=== PATIENT | female | born 1965 | race Caucasian/White ===

== ENCOUNTER → 2016-10-09 | Day surgery (SDC) | payer MEDICARE ==
[~2016-10-09] MED LIST: Buffered Lidocaine 1% SYR 3ML* 3 ML/SYR SYRINGE ONE; Cyclopentolate 1% OPTH.SOL* 2 ML BTL ONE; Flurbiprofen 0.03% OPTH.SOL* 2.5 ML BTL ONE; Ibuprofen TAB* 600 MG PO PRN; Lidocaine 1% MPF* 2 ML VIAL ONE; Lidocaine 2% EPI 1:200000 MPF* 20 ML VIAL ONE; Midazolam* 1 MG/ML 5 ML VIAL (5 MG) ONE; Neomycin/Polymy/Dex OPTH.SUSP* MAXITROL 0.1% 5 ML ONE; Phenylephrine 2.5% OPTH.SOL* 2 ML BTL ONE; Povidone Iodine 5% OPTH* 30 ML BTL ONE; Proparacaine 0.5% OPHTH.SOL* 15 ML BTL ONE; acetaZOLAMIDE TAB* 250 MG ONE; fentaNYL* 50 MCG/ML 2 ML VIAL (100 MCG VIAL) ONE
[2016-10-09 09:45] VITALS: BP 139/84
--- NOTE | 2016-10-09 22:00 | OP ---
DATE OF OPERATION: 10/09/16 [facility] DATE OF : 69 SURGEON: Chiki Pulliam MD PREOPERATIVE DIAGNOSIS: Cataract, left eye. POSTOPERATIVE DIAGNOSIS: Cataract, left eye. OPERATIVE PROCEDURE: Phacoemulsification, left eye with IOL. DESCRIPTION OF PROCEDURE: The patient was brought to the operating room after being given 1/2% Alcaine with epinephrine drops in the preoperative area. The eye was prepped and draped in the usual sterile fashion. Sterile drape and eyelid speculum were placed. Again, topical 1/2% Alcaine with epinephrine was given. A paracentesis incision was made at the 3 o'clock position with the No.75 blade. Clear cornea incision 2.2 x 2.2-mm was created at the 6 o'clock position starting at the anterior limbus using the 2.2-mm keratome. The anterior chamber was irrigated with 0.4 mL of 1% non-preservative intracameral lidocaine and filled with DisCoVisc. A capsulorrhexis was completed using the cystotome and the Utrata forceps. Hydrodissection was performed with balanced salt solution. The lens nucleus was removed with the Phacoemulsification handpiece without incident. Cortex was removed with the irrigation-aspiration handpiece. The capsular bag was re-inflated using DisCoVisc and an SN60WF 27.5 implant was inserted with the shooter. The irrigation-aspiration handpiece was used to remove all residual DisCoVisc. The eye was refilled with balanced salt solution and the wound checked and found to be watertight. Topical Maxitrol drops were given. [id number]/[facility] #: [id number] [facility]ITAL[facility]
== END | disposition home or self-care (01) ==
LOC: OREAST 07:15
PROVIDERS: ATTEND Specialist
DX: H25.042 Posterior subcapsular polar age-related cataract, left eye (principal); I10 Essential (primary) hypertension
CPT/HCPCS: A9270-GY; J2250; J3010; V2632

== ENCOUNTER 2016-10-30 06:41 | Day surgery (SDC) | payer MEDICARE ==
[~2016-10-30 06:41] MED LIST changes: +Buffered Lidocaine 1% SYR 3ML* 3 ML/SYR SYRINGE INTRADERM ONE; -Buffered Lidocaine 1% SYR 3ML* 3 ML/SYR SYRINGE ONE; -Cyclopentolate 1% OPTH.SOL* 2 ML BTL ONE; -Flurbiprofen 0.03% OPTH.SOL* 2.5 ML BTL ONE; -Ibuprofen TAB* 600 MG PO PRN; -Lidocaine 1% MPF* 2 ML VIAL ONE; -Lidocaine 2% EPI 1:200000 MPF* 20 ML VIAL ONE; -Midazolam* 1 MG/ML 5 ML VIAL (5 MG) ONE; -Neomycin/Polymy/Dex OPTH.SUSP* MAXITROL 0.1% 5 ML ONE; -Phenylephrine 2.5% OPTH.SOL* 2 ML BTL ONE; -Povidone Iodine 5% OPTH* 30 ML BTL ONE; -Proparacaine 0.5% OPHTH.SOL* 15 ML BTL ONE; -acetaZOLAMIDE TAB* 250 MG ONE; -fentaNYL* 50 MCG/ML 2 ML VIAL (100 MCG VIAL) ONE
[2016-10-30] MEDS ORDERED: Midazolam* 1 MG/ML 5 ML VIAL (5 MG) ONE (07:28)
[2016-10-30] MEDS ORDERED: fentaNYL* 50 MCG/ML 2 ML VIAL (100 MCG VIAL) ONE (07:28)
[2016-10-30 09:01] VITALS: BP 135/96
--- NOTE | 2016-10-31 01:51 | OP ---
DATE OF OPERATION: 10/30/16 - [facility] DATE OF : 69 SURGEON: Chiki Pulliam M.D. PREOPERATIVE DIAGNOSIS: Cataract, right eye. POSTOPERATIVE DIAGNOSIS: Cataract, right eye. OPERATIVE PROCEDURE: Phacoemulsification, right eye, with IOL. DESCRIPTION OF PROCEDURE: The patient was brought to the operating room after being given 1/2% Alcaine with epinephrine drops in the preoperative area. The eye was prepped and draped in the usual sterile fashion. Sterile drape and eyelid speculum were placed. Again, topical 1/2% Alcaine with epinephrine was given. A paracentesis incision was made at the 9 o'clock position with the No.75 blade. Clear cornea incision 2.2 x 2.2-mm was created at the 12 o'clock position starting at the anterior limbus using the 2.2-mm keratome. The anterior chamber was irrigated with 0.4 mL of 1% non-preservative intracameral lidocaine and filled with DisCoVisc. A capsulorrhexis was completed using the cystotome and the Utrata forceps. Hydrodissection was performed with balanced salt solution. The lens nucleus was removed with the Phacoemulsification handpiece without incident. Cortex was removed with the irrigation-aspiration handpiece. The capsular bag was re-inflated using DisCoVisc and an [id number] 26.5 implant was inserted with the shooter. The irrigation-aspiration handpiece was used to remove all residual DisCoVisc. The eye was refilled with balanced salt solution and the wound checked and found to be watertight. Topical Maxitrol drops were given. [id number]/[facility] #: [id number] MTDD
[2016-10-31] MEDS ORDERED: Cyclopentolate 1% OPTH.SOL* 2 ML BTL ONE (14:31)
[2016-10-31] MEDS ORDERED: acetaZOLAMIDE TAB* 250 MG ONE (14:31)
[2016-10-31] MEDS ORDERED: Proparacaine 0.5% OPHTH.SOL* 15 ML BTL ONE (14:31)
[2016-10-31] MEDS ORDERED: Flurbiprofen 0.03% OPTH.SOL* 2.5 ML BTL ONE (14:31)
[2016-10-31] MEDS ORDERED: Phenylephrine 2.5% OPTH.SOL* 2 ML BTL ONE (14:31)
[2016-10-31] MEDS ORDERED: Lidocaine 1% MPF* 2 ML VIAL ONE (14:31)
[2016-10-31] MEDS ORDERED: Povidone Iodine 5% OPTH* 30 ML BTL ONE (14:31)
[2016-10-31] MEDS ORDERED: Neomycin/Polymy/Dex OPTH.SUSP* MAXITROL 0.1% 5 ML ONE (14:31)
[2016-10-31] MEDS ORDERED: Lidocaine 2% EPI 1:200000 MPF* 20 ML VIAL ONE (14:31)
== END 2016-10-30 08:58 | disposition home or self-care (01) ==
LOC: OREAST 06:41
PROVIDERS: ATTEND Specialist
DX: H25.041 Posterior subcapsular polar age-related cataract, right eye (principal); I10 Essential (primary) hypertension; E87.1 Hypo-osmolality and hyponatremia
CPT/HCPCS: A9270-GY; J2250; J3010; V2632

== ENCOUNTER 2017-01-18 14:03 | Emergency (ER) | payer MEDICARE ==
[2017-01-18 14:41] VITALS: BP 152/99
--- NOTE | 2017-01-18 15:51 | UC ---
Skin Complaint HPI - HPI Summary HPI Summary: PATIENT IS A 51 YO OTHERWISE HEALTHY F WHO PRESENTS TO WITH CC OF SKIN ABRASION WITH WARMTH, REDNESS AND YELLOW CENTER AFTER FALLING SEVERAL DAYS AGO. SHE DENIES FEVER OR GENERALIZED ILLNESS. THE ABRASIONS HAVE BEEN COVERED WITH BANDAGES. SHE STATES YESTERDAY SHE FELT WARMTH AROUND THE WOUNDS ALONG WITH SLIGHT SWELLING OVER THE UPPER PART OF THE LOWER LEG. SHE HAS TRIED IBUPROFEN WITHOUT RELIEF. SHE DENIES OTHER SYMPTOMS AND IS AFEBRILE ON ARRIVAL TO . SHE DENIES DIABETES AND OTHER IMMUNOCOMPROMIZATION. THE FALL WAS MECHANICAL AND SHE DENIES HITTING HER HEAD. - History of Current Complaint Hx Obtained From: Patient Hx Last Menstrual Period: post menopausal ?: No Onset/Duration: Gradual Onset Skin Exposure Onset/Duration: Days Ago Timing: Constant Onset Severity: Mild Current Severity: Mild Pain Intensity: 0 Pain Scale Used: 0-10 Numeric Location: Discrete - LEFT LOWER EXTREMITY INFERIOR AND LATERAL TO THE KNEE Character: Swelling, Raised, Painful Aggravating: Touch Alleviating: Nothing Associated Signs & Symptoms: Positive: Negative Related History: Trauma <Iwona Garner - Last Filed: 01/18/17 15:51> <Mis Elise - Last Filed: 01/18/17 16:24> - History of Current Complaint Chief Complaint: UCSkin Time Seen by Provider: 01/18/17 15:00 Stated Complaint: LEG/KNEE INJ-WARM - Allergy/Home Medications Allergies/Adverse Reactions: Allergies Allergy/AdvReac Type Severity Reaction Status Date / Time Acetaminophen [From Tylenol] Allergy See Comment Verified 10/09/16 07:40 Penicillins Allergy Rash Verified 10/09/16 07:40 Review of Systems Constitutional: Negative Skin: Rash Eyes: Negative ENT: Negative Respiratory: Negative Cardiovascular: Negative Motor: Negative Neurovascular: Negative Psychological: Negative All Other Systems Reviewed And Are Negative: Yes <Iwona Garner - Last Filed: 01/18/17 15:51> PMH/Surg Hx/FS Hx/Imm Hx Previously Healthy: Yes Endocrine History Of: Denies: Diabetes, Thyroid Disease, Hyperthyroidism, Hypothyroidism, Dyslipidemia Cardiovascular History Of: Reports: Hypertension Denies: Cardiac Disorders, Pacemaker/ICD, Myocardial Infarction, Congestive Heart Failure, Atrial Fibrillation, Deep Vein Thrombosis, Bleeding Disorders Respiratory History Of: Denies: COPD, Asthma, Bronchitis, Pneumonia, Pulmonary Embolism GI/ History Of: Reports: Gastroesophageal Reflux Denies: Ulcer, Gastrointestinal Bleed, Gall Bladder Disease, Kidney Stones, Diverticulitis, Renal Disease, Urosepsis Neurological History Of: Reports: Migraine Denies: TIA, CVA, Dementia, Seizures Psychological History Of: Reports: Anxiety Denies: Depression, Bipolar Disorder, Schizophrenia, Post Traumatic Stress Disorder Cancer History Of: Denies: Lung Cancer, Colorectal Cancer, Breast Cancer, Prostate Cancer, Cervical Cancer Other History Of: Negative For: HIV, Hepatitis B, Hepatitis C - Surgical History Surgical History: Yes Surgery Procedure, Year, and Place: liposuction 2013, lung surgery 2001, breast reduction age 20, removal of basal cell carcinoma removed from L chest - Family History Known Family History: Positive: Unknown - Social History Occupation: Unemployed Lives: With Family Alcohol Use: Daily Alcohol Amount: vodka and champane, states she is an alcoholic Substance Use Type: Marijuana Substance Use Comment - Amount & Last Used: not in last 2 weeks Smoking Status (MU): Never Smoked Tobacco - Immunization History Most Recent Influenza Vaccination: Never Most Recent Tetanus Shot: Pt. stated "long overdue". Most Recent Pneumonia Vaccination: Never Vaccination Up to Date: Yes <Iwona Garner - Last Filed: 01/18/17 15:51> Physical Exam Triage Information Reviewed: Yes Appearance: Well-Appearing, No Pain Distress, Well-Nourished Vital Signs: Initial Vital Signs Temp 97.0 F 01/18/17 14:26 Pulse 69 01/18/17 14:26 Resp 16 01/18/17 14:26 BP 160/98 01/18/17 14:26 Pulse Ox 99 01/18/17 14:26 Vital Signs Reviewed: Yes Eyes: Positive: Conjunctiva Clear, Other: - OBVIOUS SIGNS OF CATARACTS Neck exam: Normal Neck: Positive: Supple, Nontender Cardiovascular Exam: Normal Cardiovascular: Positive: RRR Musculoskeletal Exam: Normal Musculoskeletal: Positive: Strength Intact Neurological Exam: Normal Neurological: Positive: Alert Psychological Exam: Normal Psychological: Positive: Normal Response To Family Skin: Positive: Other - LEFT LOWER EXTREMITY INFERIOR AND LATERAL TO THE KNEE <Iwona Garner - Last Filed: 01/18/17 15:51> Vital Signs: Initial Vital Signs Temp 97.0 F 01/18/17 14:26 Pulse 69 01/18/17 14:26 Resp 16 01/18/17 14:26 BP 160/98 01/18/17 14:26 Pulse Ox 99 01/18/17 14:26 <Mis Elise - Last Filed: 01/18/17 16:24> Course/Dx - Course Course Of Treatment: LEFT LOWER EXTREMITY INFERIOR AND LATERAL TO THE KNEE. PATIENT STATES SHE INCURED A MECHANICAL FALL SEVERAL DAYS AGO AND IS NOW EXPERIENCING WARMTH, REDNESS AND SLIGHT SWELLING AROUND THE AREA. TELFA DRESSING APPLIED WITH ANTIBIOTIC OINTMENT. EDUCATED PATIENT ABOUT DRESSING CHANGES AND ABX USE. KEFLEX PRESCRIBED FOR LOCALIZED POSSIBLE CELLULITIS AROUND ABRASION. - Differential Diagnoses - Skin Complaint Differential Diagnoses: Cellulitis, Drug Rash, Local Allergic Reaction, Other - ABRASION, IMPETIGO - Diagnoses Provider Diagnoses: ABRASION, CELLULITIS <Iwona Garner - Last Filed: 01/18/17 15:51> Discharge <Iwona Garner - Last Filed: 01/18/17 15:51> <Mis Elise - Last Filed: 01/18/17 16:24> - Discharge Plan Condition: Stable Disposition: HOME Prescriptions: Cephalexin CAP* [Keflex CAP*] 500 mg PO QID #28 cap MDD 4 Patient Education Materials: Cellulitis (ED), Abrasion (ED) Referrals: Sergio Russell [facility] [Primary Care Provider] - Additional Instructions: Keep wound moist and covered for 2 more days. If the wound begins to heal and scab over, you may only apply ointment, then leave open to air If you notice worsening swelling, warmth, redness or drainage from the area, come back to ED immediately. Use a non-stick dressing to apply over the wound. Attestation Statement User Type: Provider - was available for consult. This patient was seen by the LION. The patient was not presented to, seen by, or examined by me. <Mis Elise - Last Filed: 01/18/17 16:24>
== END 2017-01-18 15:46 | disposition home or self-care (01) ==
LOC: UCEAST 14:03
DX: S80.812A Abrasion, left lower leg, initial encounter (principal); L03.116 Cellulitis of left lower limb; B96.89 Other specified bacterial agents as the cause of diseases classified elsewhere; W19.XXXA Unspecified fall, initial encounter
CPT/HCPCS: 99212; G0463

== ENCOUNTER 2017-09-10 12:12 | Inpatient (IN) | payer MEDICARE ==
[2017-09-10] MEDS ORDERED: NS 0.9% 1000 ML* 1,000 ML IV ONE ×2 (12:34→12:54)
--- NOTE | 2017-09-10 12:43 | ED ---
Substance Abuse/Use - History Of Current Complaint Chief Complaint: EDSyncope Stated Complaint: SYNCOPE Time Seen by Provider: 09/10/17 12:16 Hx Last Menstrual Period: post menopausal - Allergies/Home Medications Allergies/Adverse Reactions: Allergies Allergy/AdvReac Type Severity Reaction Status Date / Time Acetaminophen [From Tylenol] Allergy See Comment Verified 10/09/16 07:40 Penicillins Allergy Rash Verified 10/09/16 07:40 Home Medications: Home Medications Desvenlafaxine(NF) [Pristiq(NF)] 100 mg PO DAILY 09/10/17 [History Confirmed 06/18] Ranitidine TAB (NF) [Zantac TAB (NF)] 150 mg PO BID PRN 09/10/17 [History Confirmed 09/10/17] Thiamine TAB* [Vitamin B-1 TAB*] 100 mg PO DAILY 09/10/17 [History Confirmed 06/18] PMH/Surg Hx/FS Hx/Imm Hx Endocrine/Hematology History: Reports: Hx Anemia Denies: Hx Diabetes, Hx Thyroid Disease Cardiovascular History: Reports: Hx Hypertension, Other Cardiovascular Problems/ Disorders - Mitral valve prolapse Denies: Hx Aneurysm, Hx Congestive Heart Failure, Hx Deep Vein Thrombosis, Hx Myocardial Infarction, Hx Pacemaker/ICD, Hx Syncope Respiratory History: Reports: Hx Pleural Effusion Denies: Hx Asthma, Hx Chronic Obstructive Pulmonary Disease (COPD), Hx Lung Cancer, Hx Pneumonia, Hx Pulmonary Embolism GI History: Reports: Hx Gastroesophageal Reflux Disease Denies: Hx Gall Bladder Disease, Hx Gastrointestinal Bleed, Hx Ulcer, Hx Urosepsis History: Denies: Hx Acute Renal Failure, Hx Kidney Stones, Hx Renal Disease Musculoskeletal History: Reports: Hx Scoliosis Denies: Hx Gout Sensory History: Reports: Hx Contacts or Glasses Denies: Hx Cataracts, Hx Eye Injury, Hx Eye Prosthesis, Hx Glaucoma, Hx Legally Blind, Hx Macular Degeneration, Hx Vision Problem, Hx Deafness, Hx Hearing Aid, Hx Hearing Problem, Other Sensory Impairments Opthamlomology History: Reports: Hx Contacts or Glasses Denies: Hx Cataracts, Hx Eye Injury, Hx Eye Prosthesis, Hx Glaucoma, Hx Legally Blind, Hx Macular Degeneration, Hx Vision Problem, Other Sensory Impairments Neurological History: Reports: Hx Migraine Denies: Hx CVA, Hx Dementia, Hx Seizures, Hx Transient Ischemic Attacks (TIA) Psychiatric History: Reports: Hx Anxiety, Hx Eating Disorder - Anorexia and Bulimia, Hx Substance Abuse - alcoholic Denies: Hx Depression, Hx Schizophrenia, Hx Bipolar Disorder - Cancer History Cancer Type, Location and Year: Basel cell carcinoma removed from L chest - Surgical History Surgery Procedure, Year, and Place: liposuction 2013, lung surgery 2001, breast reduction age 20, removal of basal cell carcinoma removed from L chest - Immunization History Immunizations Up to Date: Yes Infectious Disease History: No Infectious Disease History: Reports: 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36; treatedfor 6 months; 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 Denies: Hx Clostridium Difficile, Hx Hepatitis, Hx Human Immunodeficiency Virus (HIV), Hx of Known/Suspected MRSA, Hx Shingles, Hx Known/Suspected VRE, Hx Known/Suspected VRSA, History Other Infectious Disease, Traveled Outside the [place] in Last 30 Days - Family History Known Family History: Positive: Unknown - Social History Alcohol Use: Daily Alcohol Amount: vodka and champane, states she is an alcoholic Substance Use Type: Reports: Marijuana Substance Use Comment - Amount & Last Used: today Smoking Status (MU): Never Smoked Tobacco Physical Exam Vital Signs On Initial Exam: Initial Vitals Temp Pulse Resp BP Pulse Ox 97.8 F 62 16 102/77 100 09/10/17 12:14 09/10/17 12:14 09/10/17 12:14 09/10/17 12:14 09/10/17 12:14 - [place] Coma Scale Coma Scale Total: 15 Diagnostics - Vital Signs Vital Signs Temp Pulse Resp BP Pulse Ox 09/10/17 12:14 97.8 F 62 16 102/77 100 - Laboratory Lab Statement: Any lab studies that have been ordered have been reviewed, and results considered in the medical decision making process. Discharge - Discharge Plan Referrals: Germaine Sheppard MD [Medical Doctor] -
--- OUTSIDE RECORDS SUMMARY | 2017-09-10 12:49 | XMS REPORT ---
:1965 External Reference #:[id number] Author Organization [place] [facility] Address [address] [address] Phone [phone] Care Team Providers Name Role Phone Germaine Sheppard MD Primary Care Physician Unavailable Payers Type Date Identification Numbers Payment Provider Subscriber Health Maintenance Policy Number: Medicare Blue o Dinh Samson [facility] (O) [id number] PayID: [id number] [address] [address] [place] [address] Medigap Part B Expires: 06/09/2016 PayID: [id number] Harris [address] [place] [address] Problems Date Description Provider Status Onset: 05/12/2016 Essential hypertension Sergio Russell NP Active Onset: 05/12/2016 Insomnia Sergio Russell NP Active Onset: 05/12/2016 H/O: tuberculosis Sergio Russell NP Active Onset: 05/12/2016 Alcohol abuse Sergio Russell NP Active Family History Date Family Member(s) Problem(s) Comments General No Current Problems Social History Type Date Description Comments Marital Status Marital Status Significant Other currently ETOH Use Currently consumes alcohol States she drinks excessively, all day. Cannot quantify amount Smoking Patient has never smoked Recreational Drug Use Current Drug User Marijuana Daily Caffeine Does Not Consume Caffeine Exercise Type/Frequency Exercises rarely Allergies, Adverse Reactions, Alerts Date Description Reaction Status Severity Comments 05/08/2016 Penicillin active rash Medications Medication Date Status Form Strength Qnty SIG Indications Ordering Provider Ativan 08/15 Active Tablets 1mg 30tab 1/2-1 tab by Sergio /Meghann s mouth twice JUNIE Russell daily as needed Bystolic 05/02 Active Tablets 10mg 30tab 1 tablet by I10 Sergio s mouth daily JUNIE Russell Thiamine HCL 07/17 Active Tablets 100mg 90tab 1 by mouth F10.20 Sergio s every day JUNIE Russell Folic Acid 07/17 Active Tablets 1mg 60tab take 1 tablet F10.20 s by mouth in JUNIE Russell the morning Blood Pressure 06/26 Active Misc 1unit check bp I10 Sergio Monitor s twice weekly JUNIE Russell Inflate Small at home Cuff Omeprazole 06/26 Active Capsules 20mg 60cap 1 by mouth K21.[address] laboy once daily JUNIE Russell Ranitidine HCL 06/26 Active Tablets 150mg 120ta one tablet K21.9 bs twice daily JUNIE Russell as needed (Vacation override) B Complex Active Capsules 1 by mouth Unknown /0000 every day Multi For Her Active Capsules once a day Unknown /0000 otc Desvenlafaxine Active Tablets 100mg 1 by mouth Unknown Succinate ER /0000 ER 24HR every morning Clindamycin HCL Active Capsules 150mg Unknown /0000 Bystolic 04/22 Hx Tablets 5mg 90tab 1 by mouth I10 Sergio s every day JUNIE Russell - 05/02 Ciprofloxacin 10/03 Hx Tablets 250mg 14tab take one Sergio HCL s tablet twice JUNIE Russell - a day for 7 10/03 days. Nitrofurantoin 10/03 Hx Capsules 100mg 14cap take one Sergio Macrocrystal s capsule twice JUNIE Russell - daily for 7 10/10 days. Bystolic 07/22 Hx Tablets 5mg 60tab take 1 tablet s by mouth once JUNIE Russell - daily 02/12 Bystolic 06/26 Hx Tablets 2.5mg 90tab 1 tablet by I10 Sergio s mouth daily JUNIE Russell - 05/02 Slow-Mag 05/20 Hx Tablets 71.5-119m 240ta two tablets DR rohan benson twice daily JUNIE Russell - (vacation 02/12 override) Vitamin B-1 Hx Tablets 250mg 2 po qd Unknown /0000 - 09/27 Doxepin HCL 00 Hx Capsules 25mg 1 tab by Unknown /0000 mouth at - bedtime ( 02/12 ) Vital Signs Date Vital Result Comment 08/15/2017 Weight 102.00 lb Pt reports. Heart Rate 81 /min BP Systolic Sitting 136 mmHg BP Diastolic Sitting 92 mmHg Body Temperature 99.1 F Pain Level 97 07/04/2017 Heart Rate 77 /min BP Systolic Sitting 138 mmHg BP Diastolic Sitting 86 mmHg O2 % BldC Oximetry 98 % 05/02/2017 Heart Rate 84 /min BP Systolic Sitting 150 mmHg BP Diastolic Sitting 98 mmHg BP Systolic Recheck 144 mmHg BP Diastolic Recheck 96 mmHg O2 % BldC Oximetry 98 % 02/12/2017 Weight 103.00 lb Heart Rate 69 /min BP Systolic Sitting 132 mmHg BP Diastolic Sitting 90 mmHg BP Systolic Recheck 132 mmHg BP Diastolic Recheck 84 mmHg O2 % BldC Oximetry 99 % 12/02/2016 Weight 107.00 lb shoes Heart Rate 74 /min BP Systolic 138 mmHg BP Diastolic 72 mmHg BP Systolic Recheck 132 mmHg BP Diastolic Recheck 84 mmHg Body Temperature 98.2 F O2 % BldC Oximetry 98 % 10/01/2016 Weight 103.00 lb Heart Rate 69 /min BP Systolic 120 mmHg BP Diastolic 80 mmHg Body Temperature 98.5 F O2 % BldC Oximetry 96 % 09/27/2016 Weight 103.00 lb Heart Rate 85 /min BP Systolic Sitting 128 mmHg BP Diastolic Sitting 84 mmHg Body Temperature 98.9 F O2 % BldC Oximetry 99 % 07/17/2016 Heart Rate 69 /min BP Systolic Sitting 100 mmHg BP Diastolic Sitting 76 mmHg BP Systolic Recheck 104 mmHg BP Diastolic Recheck 74 mmHg O2 % BldC Oximetry 98 % 06/26/2016 Heart Rate 66 /min BP Systolic Sitting 120 mmHg BP Diastolic Sitting 64 mmHg Respiratory Rate 16 /min Body Temperature 98.5 F O2 % BldC Oximetry 98 % 05/08/2016 Weight 102.00 lb Heart Rate 80 /min BP Systolic Sitting 110 mmHg BP Diastolic Sitting 68 mmHg Respiratory Rate 15 /min Body Temperature 98.0 F O2 % BldC Oximetry 98 % Results Test Date Test Result H/L Range Note Laboratory test finding 05/29/2017 Magnesium 1.8 mg/dL Low 1.9-2.7 Comp Metabolic Panel 05/29/2017 Sodium 131 mmol/L Low 133-145 Potassium 3.9 mmol/L 3.5-5.0 Chloride 95 mmol/L Low 101-111 Co2 Carbon Dioxide 29 mmol/L 22-32 Anion Gap 7 mmol/L 2-11 Glucose 86 mg/dL 70-100 Blood Urea Nitrogen 8 mg/dL 6-24 Creatinine 0.63 mg/dL 0.51-0.95 BUN/Creatinine Ratio 12.7 8-20 Calcium 8.7 mg/dL 8.6-10.3 Total Protein 7.0 g/dL 6.4-8.9 Albumin 4.2 g/dL 3.2-5.2 Globulin 2.8 g/dL 2-4 Albumin/Globulin Ratio 1.5 1-3 Total Bilirubin 0.80 mg/dL 0.2-1.0 Alkaline Phosphatase 78 U/L 34-104 Alt 30 U/L 7-52 Ast 76 U/L High 13-39 Egfr Non- 100.0 >60 Egfr 128.6 >60 1 CBC Auto Diff 02/07/2017 White Blood Count 4.0 10^3/uL 3.5-10.8 Red Blood Count 3.68 10^6/uL Low 4.0-5.4 Hemoglobin 12.8 g/dL 12.0-16.0 Hematocrit 37 % 35-47 Mean Corpuscular Volume 100 fL High 80-97 Mean Corpuscular Hemoglobin 35 pg High 27-31 Mean Corpuscular HGB Conc 35 g/dL 31-36 Red Cell Distribution Width 13 % 10.5-15 Platelet Count 196 10^3/uL 150-450 Mean Platelet Volume 7 um3 Low 7.4-10.4 Abs Neutrophils 2.2 10^3/uL 1.5-7.7 Abs Lymphocytes 1.3 10^3/uL 1.0-4.8 Abs Monocytes 0.5 10^3/uL 0-0.8 Abs Eosinophils 0.1 10^3/uL 0-0.6 Abs Basophils 0.1 10^3/uL 0-0.2 Abs Nucleated RBC 0 10^3/uL Granulocyte % 53.7 % 38-83 Lymphocyte % 31.4 % 25-47 Monocyte % 11.4 % High 1-9 Eosinophil % 2.3 % 0-6 Basophil % 1.2 % 0-2 Nucleated Red Blood Cells % 0 Laboratory test finding 02/07/2017 Ferritin 249.5 ng/mL 11-307 Magnesium 1.8 mg/dL Low 1.9-2.7 Comp Metabolic Panel 02/07/2017 Sodium 127 mmol/L Low 133-145 Potassium 4.3 mmol/L 3.5-5.0 Chloride 91 mmol/L Low 101-111 Co2 Carbon Dioxide 29 mmol/L 22-32 Anion Gap 7 mmol/L 2-11 Glucose 66 mg/dL Low 70-100 Blood Urea Nitrogen 6 mg/dL 6-24 Creatinine 0.57 mg/dL 0.51-0.95 BUN/Creatinine Ratio 10.5 8-20 Calcium 9.4 mg/dL 8.6-10.3 Total Protein 7.2 g/dL 6.4-8.9 Albumin 4.3 g/dL 3.2-5.2 Globulin 2.9 g/dL 2-4 Albumin/Globulin Ratio 1.5 1-3 Total Bilirubin 0.70 mg/dL 0.2-1.0 Alkaline Phosphatase 60 U/L 34-104 Alt 27 U/L 7-52 Ast 62 U/L High 13-39 Egfr Non- 112.7 >60 Egfr 145.0 >60 2 Laboratory test finding 12/17/2016 Occult Blood - Stool Neg x 3 CBC Auto Diff 10/01/2016 White Blood Count 12.2 10^3/uL High 3.5-10.8 Red Blood Count 3.35 10^6/uL Low 4.0-5.4 Hemoglobin 11.4 g/dL Low 12.0-16.0 Hematocrit 32 % Low 35-47 Mean Corpuscular Volume 97 fL 80-97 Mean Corpuscular Hemoglobin 34 pg High 27-31 Mean Corpuscular HGB Conc 35 g/dL 31-36 Red Cell Distribution Width 13 % 10.5-15 Platelet Count 447 10^3/uL 150-450 Mean Platelet Volume 7 um3 Low 7.4-10.4 Abs Neutrophils 8.2 10^3/uL High 1.5-7.7 Abs Lymphocytes 2.3 10^3/uL 1.0-4.8 Abs Monocytes 1.5 10^3/uL High 0-0.8 Abs Eosinophils 0.1 10^3/uL 0-0.6 Abs Basophils 0.1 10^3/uL 0-0.2 Abs Nucleated RBC 0 10^3/uL Granulocyte % 67.0 % 38-83 Lymphocyte % 18.7 % Low 25-47 Monocyte % 12.3 % High 1-9 Eosinophil % 0.9 % 0-6 Basophil % 1.1 % 0-2 Nucleated Red Blood Cells % 0 Comp Metabolic Panel 10/01/2016 Sodium 126 mmol/L Low 133-145 Potassium 4.3 mmol/L 3.5-5.0 Chloride 93 mmol/L Low 101-111 Co2 Carbon Dioxide 25 mmol/L 22-32 Anion Gap 8 mmol/L 2-11 Glucose 88 mg/dL 70-100 Blood Urea Nitrogen 11 mg/dL 6-24 Creatinine 0.72 mg/dL 0.51-0.95 BUN/Creatinine Ratio 15.3 8-20 Calcium 8.9 mg/dL 8.6-10.3 Total Protein 6.8 g/dL 6.4-8.9 Albumin 3.5 g/dL 3.2-5.2 Globulin 3.3 g/dL 2-4 Albumin/Globulin Ratio 1.1 1-3 Total Bilirubin 0.40 mg/dL 0.2-1.0 Alkaline Phosphatase 64 U/L 34-104 Alt 8 U/L 7-52 Ast 13 U/L 13-39 Egfr Non- 86.1 >60 Egfr 110.7 >60 3 Iron & Iron Binding Capacity 10/01/2016 Iron 17 g/dL Low 50-212 Unsaturated Iron Binding 243 g/dL Total Iron Binding Capacity 260 g/dL 250-450 % Iron Saturation 7 % Low 15-55 Laboratory test finding 10/01/2016 Folic Acid (Folate) > 20.00 ng/mL & gt;3.99 Vitamin B12 > 1450 pg/mL High 180-914 4 Ferritin 407.6 ng/mL High 11-307 Urine Culture And 10/01/2016 Urine Culture SEE RESULT BELOW 5 Sensitivities Ua Routine 10/01/2016 Ua Specific Rogers 1.015 Ua PH 5 Ua Color yellow Ua Appera cloudy Ua WBC small Ua Protein 30+ Ua Glucose -- Ua Ketones -- Ua Bilirubin small Ua Urobilinogen normal Ua Nitrite -- Ua Occult Blood large Laboratory test finding 08/09/2016 TSH (Thyroid Stim Horm) 0.68 mcIU/mL 0.34-5.60 Mercury Blood 8 ng/mL 0-9 6 Basic Metabolic Panel 08/09/2016 Sodium 132 mmol/L Low 133-145 Potassium 4.1 mmol/L 3.5-5.0 Chloride 95 mmol/L Low 101-111 Co2 Carbon Dioxide 28 mmol/L 22-32 Anion Gap 9 mmol/L 2-11 Glucose 95 mg/dL 70-100 Blood Urea Nitrogen 5 mg/dL Low 6-24 Creatinine 0.61 mg/dL 0.51-0.95 BUN/Creatinine Ratio 8.2 8-20 Calcium 9.6 mg/dL 8.6-10.3 Egfr Non- 104.2 >60 Egfr 134.1 >60 7 Basic Metabolic Panel 07/16/2016 Sodium 125 mmol/L Low 133-145 Potassium 4.2 mmol/L 3.5-5.0 Chloride 90 mmol/L Low 101-111 Co2 Carbon Dioxide 28 mmol/L 22-32 Anion Gap 7 mmol/L 2-11 Glucose 80 mg/dL 70-100 Blood Urea Nitrogen 5 mg/dL Low 6-24 Creatinine 0.59 mg/dL 0.51-0.95 BUN/Creatinine Ratio 8.5 8-20 Calcium 9.7 mg/dL 8.6-10.3 Egfr Non- 108.3 >60 Egfr 139.3 >60 8 Laboratory test finding 07/16/2016 Magnesium 1.8 mg/dL Low 1.9-2.7 Laboratory test finding 05/18/2016 Magnesium 1.6 mg/dL Low 1.9-2.7 9 Lipid Profile (Trig/Chol/HDL) 05/18/2016 Triglycerides 144 mg/dL 10 Cholesterol 240 mg/dL 11 HDL Cholesterol 103.6 mg/dL 12 LDL Cholesterol 108 mg/dL 13 Comp Metabolic Panel 05/18/2016 Sodium 130 mmol/L Low 133-145 Potassium 4.1 mmol/L 3.5-5.0 Chloride 93 mmol/L Low 101-111 Co2 Carbon Dioxide 30 mmol/L 22-32 Anion Gap 7 mmol/L 2-11 Glucose 78 mg/dL 70-100 Blood Urea Nitrogen 7 mg/dL 6-24 Creatinine 0.63 mg/dL 0.51-0.95 BUN/Creatinine Ratio 11.1 8-20 Calcium 9.6 mg/dL 8.6-10.3 Total Protein 7.5 g/dL 6.4-8.9 Albumin 4.4 g/dL 3.2-5.2 Globulin 3.1 g/dL 2-4 Albumin/Globulin Ratio 1.4 1-3 Total Bilirubin 0.90 mg/dL 0.2-1.0 Alkaline Phosphatase 66 U/L 34-104 Alt 20 U/L 7-52 Ast 39 U/L 13-39 Egfr Non- 100.9 >60 Egfr 129.7 >60 14 CBC Auto Diff 05/18/2016 White Blood Count 4.1 10^3/uL 3.5-10.8 Red Blood Count 3.91 10^6/uL Low 4.0-5.4 Hemoglobin 13.6 g/dL 12.0-16.0 Hematocrit 39 % 35-47 Mean Corpuscular Volume 99 fL High 80-97 Mean Corpuscular Hemoglobin 35 pg High 27-31 Mean Corpuscular HGB Conc 35 g/dL 31-36 Red Cell Distribution Width 12 % 10.5-15 Platelet Count 264 10^3/uL 150-450 Mean Platelet Volume 7 um3 Low 7.4-10.4 Abs Neutrophils 2.1 10^3/uL 1.5-7.7 Abs Lymphocytes 1.4 10^3/uL 1.0-4.8 Abs Monocytes 0.4 10^3/uL 0-0.8 Abs Eosinophils 0.1 10^3/uL 0-0.6 Abs Basophils 0.1 10^3/uL 0-0.2 Abs Nucleated RBC 0 10^3/uL Granulocyte % 51.2 % 38-83 Lymphocyte % 34.6 % 25-47 Monocyte % 9.6 % High 1-9 Eosinophil % 3.3 % 0-6 Basophil % 1.3 % 0-2 Nucleated Red Blood Cells % 0 1 Because ethnic data is not always readily available, this report includes an eGFR for both -Americans and non- Americans. The National Kidney Disease Education Program (NKDEP) does not endorse the use of the MDRD equation for patients that are not between the ages of 18 and 70, are , have extremes of body size, muscle mass, or nutritional status, or are non- or non-. According to the National Kidney Foundation, irrespective of diagnosis, the stage of the disease is based on the level of kidney function: Stage Description GFR(mL/min/1.73 m(2)) 1 Kidney damage with normal or decreased GFR 90 2 Kidney damage with mild decrease in GFR 60-89 3 Moderate decrease in GFR 30-59 4 Severe decrease in GFR 15-29 5 Kidney failure <15 (or dialysis) 2 Because ethnic data is not always readily available, this report includes an eGFR for both -Americans and non- Americans. The National Kidney Disease Education Program (NKDEP) does not endorse the use of the MDRD equation for patients that are not between the ages of 18 and 70, are , have extremes of body size, muscle mass, or nutritional status, or are non- or non-. According to the National Kidney Foundation, irrespective of diagnosis, the stage of the disease is based on the level of kidney function: Stage Description GFR(mL/min/1.73 m(2)) 1 Kidney damage with normal or decreased GFR 90 2 Kidney damage with mild decrease in GFR 60-89 3 Moderate decrease in GFR 30-59 4 Severe decrease in GFR 15-29 5 Kidney failure <15 (or dialysis) 3 Because ethnic data is not always readily available, this report includes an eGFR for both -Americans and non- Americans. The National Kidney Disease Education Program (NKDEP) does not endorse the use of the MDRD equation for patients that are not between the ages of 18 and 70, are , have extremes of body size, muscle mass, or nutritional status, or are non- or non-. According to the National Kidney Foundation, irrespective of diagnosis, the stage of the disease is based on the level of kidney function: Stage Description GFR(mL/min/1.73 m(2)) 1 Kidney damage with normal or decreased GFR 90 2 Kidney damage with mild decrease in GFR 60-89 3 Moderate decrease in GFR 30-59 4 Severe decrease in GFR 15-29 5 Kidney failure <15 (or dialysis) 4 Normal Range 180 to 914 Indeterminate Range 145 to 180 Deficient Range <145 5 SEE RESULT BELOW Name: DINH SAMSON : [address]: Sergio Russell NP Acct: [id number] Unit: [id number] AGE: 51 Location: [facility] Re10/01/16 SEX: F Status: REG REF SPEC: [id number] FABIANO: 10/01/16-[address]: Sergio Russell NP REQ: [id number] RECD: 10/01/16 STATUS: COMP _ SOURCE: URINE SPDESC: ORDERED: Urine Culture COMMENTS: [id number] Urine Source: Random Procedure Result Reported Site Urine Culture Final 10/03/16- 07 ML Organism 1 ESCHERICHIA COLI [place] Count >100,000 (Many) CFU/ML 1. ESCHERICHIA COLI M.I.C. RX --------- ------ Ampicillin 8 S Cefazolin <=4 S Cefepime <=1 S Ceftriaxone <=1 S Ciprofloxacin >=4 R Gentamicin <=1 S Levofloxacin >=8 R Meropenem <=0.25 S Nitrofurantoin <=16 S Tetracycline 2 S Pipercillin/Tazobactam <=4 S Trimethoprim/Sulfamethoxazole <=20 S Amoxicillin/Clavulanic Acid 8 S Aztreonam <=1 S Contact the Microbiology Department for any additional antibiotic reporting. * ML - MAIN LAB ([facility]) . END OF REPORT * ML=Testing performed at Main Lab DEPARTMENT OF PATHOLOGY, [address] [place] [address] Mele Corey M.D. Director [facility] # [id number] ADDITIONAL INFORMATION This test was developed and its performance characteristics determined by [facility] in a manner consistent with CLIA requirements. This test has not been cleared or approved by the U.S. Food and Drug Administration. Test Performed by: [facility] - [address] [address] [employer]: Ollie Oliveira II, M.D., Ph.D. 7 Because ethnic data is not always readily available, this report includes an eGFR for both -Americans and non- Americans. The National Kidney Disease Education Program (NKDEP) does not endorse the use of the MDRD equation for patients that are not between the ages of 18 and 70, are , have extremes of body size, muscle mass, or nutritional status, or are non- or non-. According to the National Kidney Foundation, irrespective of diagnosis, the stage of the disease is based on the level of kidney function: Stage Description GFR(mL/min/1.73 m(2)) 1 Kidney damage with normal or decreased GFR 90 2 Kidney damage with mild decrease in GFR 60-89 3 Moderate decrease in GFR 30-59 4 Severe decrease in GFR 15-29 5 Kidney failure <15 (or dialysis) 8 Because ethnic data is not always readily available, this report includes an eGFR for both -Americans and non- Americans. The National Kidney Disease Education Program (NKDEP) does not endorse the use of the MDRD equation for patients that are not between the ages of 18 and 70, are , have extremes of body size, muscle mass, or nutritional status, or are non- or non-. According to the National Kidney Foundation, irrespective of diagnosis, the stage of the disease is based on the level of kidney function: Stage Description GFR(mL/min/1.73 m(2)) 1 Kidney damage with normal or decreased GFR 90 2 Kidney damage with mild decrease in GFR 60-89 3 Moderate decrease in GFR 30-59 4 Severe decrease in GFR 15-29 5 Kidney failure <15 (or dialysis) 9 FASTING 10 HOUR 10 Desirable <150 Borderline high 150-199 High 200-499 Very High >500 11 Desirable <200 Borderline high 200-239 High >239 12 Low <40 Desirable: 40-60 High: >60 13 Desirable: <100 mg/dL Near Optimal: 100-129 mg/dL Borderline High: 130-159 mg/dL High: 160-189 mg/dL Very High: >189 mg/dL 14 Because ethnic data is not always readily available, this report includes an eGFR for both -Americans and non- Americans. The National Kidney Disease Education Program (NKDEP) does not endorse the use of the MDRD equation for patients that are not between the ages of 18 and 70, are , have extremes of body size, muscle mass, or nutritional status, or are non- or non-. According to the National Kidney Foundation, irrespective of diagnosis, the stage of the disease is based on the level of kidney function: Stage Description GFR(mL/min/1.73 m(2)) 1 Kidney damage with normal or decreased GFR 90 2 Kidney damage with mild decrease in GFR 60-89 3 Moderate decrease in GFR 30-59 4 Severe decrease in GFR 15-29 5 Kidney failure <15 (or dialysis) Procedures Date CPT Code Description Status 07/28/2017 Mammogram Completed 05/31/2016 Mammogram Completed Encounters Type Date Location Provider CPT E/M Dx Office Visit 07/04/2017 9:00a [facility] [place] [address] [address] [place] R68.84 Office Visit 05/02/2017 1:40p [facility] [place] [address] [address] [place] Z12.31 R94.5 F10.20 M54.5 R22.1 Office Visit 02/12/2017 9:20a [facility] [place] [address] F10.20 [place] I10 M79.675 D48.5 Office Visit 12/02/2016 11:40a [facility] [place] [address] [address] [place] F10.20 D48.5 Office Visit 10/01/2016 9:40a [facility] [place] [address] R50.9 [place] Office Visit 09/27/2016 9:40a [facility] [place] [address] Z01.818 [place] H26.9 I10 E87.1 E83.42 F10.20 Office Visit 07/17/2016 9:20a [facility] [place] [address] [address] [place] F10.20 E87.1 L65.8 F41.9 Office Visit 06/26/2016 9:20a [facility] [place] [address] [address] [place] F10.20 F41.9 E83.42 K21.9 Office Visit 05/08/2016 3:00p [facility] [place] [address] [address] [place] F10.20 Office Visit 10/15/2015 9:35a [facility], [address] F10.230 jurgen Chapman M.D. Office Visit 10/14/2015 9:[facility]a [facility] [address] F10.230 ,[facility] M.D. 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 This may be contributing to you feeling tired.F32.89 Other specified depressive episodesComments:I have referred you to the psychiatrist that we discussed.Referral:Dax Morrison MD, Psychiatry
[2017-09-10] MEDS ORDERED: Thiamine IV* 100 MG/ML 2 ML VIAL IM ONE (13:02)
[2017-09-10] MEDS ORDERED: Multivitamins/Minerals TAB PO ONE (13:02)
[2017-09-10 13:06] LABS: ABS Basophils 0 10^3/ul (0-0.2); ABS Eosinophils 0.1 10^3/ul (0-0.6); ABS Monocytes 0.7 10^3/ul (0-0.8); ABS Nucleated RBC 0 10^3/ul; Eosinophil % 1.8 % (0-6); Hematocrit 34 % (35-47); Hemoglobin 12.2 g/dl (12.0-16.0); Mean Corpuscular HGB Conc 36 g/dl (31-36); Mean Corpuscular Hemoglobin 36 pg (27-31); Mean Corpuscular Volume 100 fL (80-97); Mean Platelet Volume 7 um3 (7.4-10.4); Nucleated Red Blood Cells % 0.1; Platelet Count 168 10^3/ul (150-450); Red Blood Count 3.41 10^6/ul (4.0-5.4); Red Cell Distribution Width 13 % (10.5-15); White Blood Count 4.7 10^3/ul (3.5-10.8)
[2017-09-10 13:22] LABS: EGFR Non-African American 79.3 (>60)
--- NOTE | 2017-09-10 13:36 | RAD ---
INDICATION: Syncope. COMPARISON: Comparison is made with a prior chest x-ray study from October 10, 2008. TECHNIQUE: Dual-energy PA and lateral views of the chest were obtained. FINDINGS: The heart is within normal limits in size. Mediastinal and hilar contours appear within normal limits. The lungs are clear. No pleural effusion is present. IMPRESSION: NO EVIDENCE FOR ACTIVE CARDIOPULMONARY DISEASE.
[2017-09-10] MEDS ORDERED: LORazepam TAB(*) 1 MG PO ONE (14:35)
[2017-09-10 14:48] LABS: Urine Appearance Clear; Urine Blood Negative (Negative); Urine Color Yellow; Urine Ketones Negative (Negative); Urine Protein Negative (Negative); Urine Specific Gravity 1.005 (1.010-1.030); Urine Urobilinogen Negative (Negative)
[2017-09-10] MEDS ORDERED: LORazepam INJ* 2 MG/ML 1 ML VIAL IV PUSH ONE (14:50)
[2017-09-10 15:15] LABS: EGFR Non-African American 107.9 (>60)
--- NOTE | 2017-09-10 18:48 | ED ---
Alexx Allen Angela, scribed for Reji Sheehan MD on 09/10/17 at 1256 . Syncope/Near Syncope - HPI Summary HPI Summary: This pt is a 52 y/o female, accompanied by her boyfriend, presenting to [facility] via EMS for syncope. Pt got up this morning, walked a few steps and collapsed today. She didn't have a feeling that she was going to collapse. Pt currently reports feeling weak and abd pain. Pt has been detoxing since Friday night (09/06/17) from alcohol with Ativan. Her last drink was 4 days ago. Denies auditory or visual hallucinations, anxiety. Per EMS, pt was hypotensive. - History Of Current Complaint Chief Complaint: EDSyncope Time Seen by Provider: 09/10/17 12:16 Hx Obtained From: Patient Onset/Duration: Sudden Onset, Resolved Timing: Minutes Context: Loss Of Consciousness Activity At Onset: Other - walking Associated Head Trauma: No Associated Signs And Symptoms: Weakness - generalized, Other - POS: abd pain - Allergies/Home Medications Allergies/Adverse Reactions: Allergies Allergy/AdvReac Type Severity Reaction Status Date / Time Acetaminophen [From Tylenol] Allergy See Comment Verified 10/09/16 07:40 Penicillins Allergy Rash Verified 10/09/16 07:40 Home Medications: Home Medications Desvenlafaxine(NF) [Pristiq(NF)] 100 mg PO DAILY 09/10/17 [History Confirmed 06/18] Ranitidine TAB (NF) [Zantac TAB (NF)] 150 mg PO BID PRN 09/10/17 [History Confirmed 09/10/17] Thiamine TAB* [Vitamin B-1 TAB*] 100 mg PO DAILY 09/10/17 [History Confirmed 06/18] PMH/Surg Hx/FS Hx/Imm Hx Endocrine/Hematology History: Reports: Hx Anemia Denies: Hx Diabetes, Hx Thyroid Disease Cardiovascular History: Reports: Hx Hypertension, Other Cardiovascular Problems/ Disorders - Mitral valve prolapse Denies: Hx Aneurysm, Hx Congestive Heart Failure, Hx Deep Vein Thrombosis, Hx Myocardial Infarction, Hx Pacemaker/ICD, Hx Syncope Respiratory History: Reports: Hx Pleural Effusion Denies: Hx Asthma, Hx Chronic Obstructive Pulmonary Disease (COPD), Hx Lung Cancer, Hx Pneumonia, Hx Pulmonary Embolism GI History: Reports: Hx Gastroesophageal Reflux Disease Denies: Hx Gall Bladder Disease, Hx Gastrointestinal Bleed, Hx Ulcer, Hx Urosepsis History: Denies: Hx Acute Renal Failure, Hx Kidney Stones, Hx Renal Disease Musculoskeletal History: Reports: Hx Scoliosis Denies: Hx Gout Sensory History: Reports: Hx Contacts or Glasses Denies: Hx Cataracts, Hx Eye Injury, Hx Eye Prosthesis, Hx Glaucoma, Hx Legally Blind, Hx Macular Degeneration, Hx Vision Problem, Hx Deafness, Hx Hearing Aid, Hx Hearing Problem, Other Sensory Impairments Opthamlomology History: Reports: Hx Contacts or Glasses Denies: Hx Cataracts, Hx Eye Injury, Hx Eye Prosthesis, Hx Glaucoma, Hx Legally Blind, Hx Macular Degeneration, Hx Vision Problem, Other Sensory Impairments Neurological History: Reports: Hx Migraine Denies: Hx CVA, Hx Dementia, Hx Seizures, Hx Transient Ischemic Attacks (TIA) Psychiatric History: Reports: Hx Anxiety, Hx Eating Disorder - Anorexia and Bulimia, Hx Substance Abuse - alcoholic Denies: Hx Depression, Hx Schizophrenia, Hx Bipolar Disorder - Cancer History Cancer Type, Location and Year: Basel cell carcinoma removed from L chest - Surgical History Surgery Procedure, Year, and Place: liposuction 2013, lung surgery 2001, breast reduction age 20, removal of basal cell carcinoma removed from L chest - Immunization History Immunizations Up to Date: Yes Infectious Disease History: No Infectious Disease History: Reports: 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36; treatedfor 6 months; 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 Denies: Hx Clostridium Difficile, Hx Hepatitis, Hx Human Immunodeficiency Virus (HIV), Hx of Known/Suspected MRSA, Hx Shingles, Hx Known/Suspected VRE, Hx Known/Suspected VRSA, History Other Infectious Disease, Traveled Outside the [place] in Last 30 Days - Family History Known Family History: Negative: Cardiac Disease, Hypertension, Diabetes - Social History Alcohol Use: Daily Alcohol Amount: vodka and champane, states she is an alcoholic Substance Use Type: Reports: Marijuana Substance Use Comment - Amount & Last Used: today Smoking Status (MU): Never Smoked Tobacco Review of Systems Positive: Fatigue. Negative: Fever, Chills Respiratory: Negative Positive: Abdominal Pain Genitourinary: Negative Musculoskeletal: Negative Neurological: Other - NEG: hallucinations Positive: Weakness - generalized, Syncope Negative: Anxious All Other Systems Reviewed And Are Negative: Yes Physical Exam - Summary Physical Exam Summary: Appearance: Well-appearing, Well-nourished. No evidence of obvious trauma. Skin: Warm Eyes: EOMI. PERRL. No evidence of ophthalmoplegia. ENT: Normal Neck: Supple, nontender Respiratory: Clear to auscultation. Normal chest. Cardiovascular: Normal Abdomen: Soft, nontender Bowel: Present Musculoskeletal: Normal, Strength/ROM Intact Neurological: Normal, A&Ox3. Short term memory test, 3/3 correct. CN II-XII are intact. Normal strength and sensation of UE and LE extremities. Psychiatric: Normal Triage Information Reviewed: Yes Vital Signs On Initial Exam: Initial Vitals Temp Pulse Resp BP Pulse Ox 97.8 F 62 16 102/77 100 09/10/17 12:14 09/10/17 12:14 09/10/17 12:14 09/10/17 12:14 09/10/17 12:14 Vital Signs Reviewed: Yes - Néstor Coma Scale Coma Scale Total: 15 Diagnostics - Vital Signs Vital Signs Temp Pulse Resp BP Pulse Ox 09/10/17 12:14 97.8 F 62 16 102/77 100 - Laboratory Lab Results: Lab Results 09/10/17 09/10/17 09/10/17 Range/Units 12:41 12:41 12:41 WBC 4.7 (3.5-10.8) 10^3/ul RBC 3.41 L (4.0-5.4) 10^6/ul Hgb 12.2 (12.0-16.0) g/dl Hct 34 L (35-47) % MCV 100 H (80-97) fL MCH 36 H (27-31) pg MCHC 36 (31-36) g/dl RDW 13 (10.5-15) % Plt Count 168 (150-450) 10^3/ul MPV 7 L (7.4-10.4) um3 Neut % (Auto) 62.6 (38-83) % Lymph % (Auto) 21.0 L (25-47) % [place] % (Auto) 13.8 H (1-9) % Eos % (Auto) 1.8 (0-6) % Baso % (Auto) 0.8 (0-2) % Absolute Neuts (auto) 3.0 (1.5-7.7) 10^3/ul Absolute Lymphs (auto) 1.0 (1.0-4.8) 10^3/ul Absolute Monos (auto) 0.7 (0-0.8) 10^3/ul Absolute Eos (auto) 0.1 (0-0.6) 10^3/ul Absolute Basos (auto) 0 (0-0.2) 10^3/ul Absolute Nucleated RBC 0 10^3/ul Nucleated RBC % 0.1 Sodium 122 L (133-145) mmol/L Potassium 3.4 L (3.5-5.0) mmol/L Chloride 89 L (101-111) mmol/L Carbon Dioxide 26 (22-32) mmol/L Anion Gap 7 (2-11) mmol/L BUN 7 (6-24) mg/dL Creatinine 0.77 (0.51-0.95) mg/dL Est GFR ( Amer) 102.0 (>60) Est GFR (Non-Af Amer) 79.3 (>60) BUN/Creatinine Ratio 9.1 (8-20) Glucose 127 H (70-100) mg/dL Lactic Acid (0.5-2.0) mmol/L Calcium 9.4 (8.6-10.3) mg/dL Magnesium 1.5 L (1.9-2.7) mg/dL Total Bilirubin 0.80 (0.2-1.0) mg/dL AST 71 H (13-39) U/L ALT 51 (7-52) U/L Alkaline Phosphatase 81 (34-104) U/L Ammonia 47 (16-53) mol/L Troponin I 0.00 (<0.04) ng/mL Total Protein 6.7 (6.4-8.9) g/dL Albumin 3.7 (3.2-5.2) g/dL Globulin 3.0 (2-4) g/dL Albumin/Globulin Ratio 1.2 (1-3) Lipase 14 (11.0-82.0) U/L TSH 1.17 (0.34-5.60) mcIU/mL Urine Color Urine Appearance Urine pH (5-9) Ur Specific [place] (1.010-1.030) Urine Protein (Negative) Urine Ketones (Negative) Urine Blood (Negative) Urine Nitrate (Negative) Urine Bilirubin (Negative) Urine Urobilinogen (Negative) Ur Leukocyte Esterase (Negative) Urine Glucose (Negative) Urine Opiates Screen (None Detect) Ur Barbiturates Screen (None Detect) Ur Phencyclidine Scrn (None Detect) Ur Amphetamines Screen (None Detect) U Benzodiazepines Scrn (None Detect) Urine Cocaine Screen (None Detect) U Cannabinoids Screen (None Detect) Serum Alcohol < 10 (<10) mg/dL 09/10/17 09/10/17 09/10/17 Range/Units 12:41 14:12 14:35 WBC (3.5-10.8) 10^3/ul RBC (4.0-5.4) 10^6/ul Hgb (12.0-16.0) g/dl Hct (35-47) % MCV (80-97) fL MCH (27-31) pg MCHC (31-36) g/dl RDW (10.5-15) % Plt Count (150-450) 10^3/ul MPV (7.4-10.4) um3 Neut % (Auto) (38-83) % Lymph % (Auto) (25-47) % [place] % (Auto) (1-9) % Eos % (Auto) (0-6) % Baso % (Auto) (0-2) % Absolute Neuts (auto) (1.5-7.7) 10^3/ul Absolute Lymphs (auto) (1.0-4.8) 10^3/ul Absolute Monos (auto) (0-0.8) 10^3/ul Absolute Eos (auto) (0-0.6) 10^3/ul Absolute Basos (auto) (0-0.2) 10^3/ul Absolute Nucleated RBC 10^3/ul Nucleated RBC % Sodium 124 L (133-145) mmol/L Potassium 4.1 (3.5-5.0) mmol/L Chloride 94 L (101-111) mmol/L Carbon Dioxide 22 (22-32) mmol/L Anion Gap 8 (2-11) mmol/L BUN 7 (6-24) mg/dL Creatinine 0.59 (0.51-0.95) mg/dL Est GFR ( Amer) 138.8 (>60) Est GFR (Non-Af Amer) 107.9 (>60) BUN/Creatinine Ratio 11.9 (8-20) Glucose 109 H (70-100) mg/dL Lactic Acid 1.4 (0.5-2.0) mmol/L Calcium 8.4 L (8.6-10.3) mg/dL Magnesium (1.9-2.7) mg/dL Total Bilirubin (0.2-1.0) mg/dL AST (13-39) U/L ALT (7-52) U/L Alkaline Phosphatase (34-104) U/L Ammonia (16-53) mol/L Troponin I (<0.04) ng/mL Total Protein (6.4-8.9) g/dL Albumin (3.2-5.2) g/dL Globulin (2-4) g/dL Albumin/Globulin Ratio (1-3) Lipase (11.0-82.0) U/L TSH (0.34-5.60) mcIU/mL Urine Color Yellow Urine Appearance Clear Urine pH 7.0 (5-9) Ur Specific [place] 1.005 L (1.010-1.030) Urine Protein Negative (Negative) Urine Ketones Negative (Negative) Urine Blood Negative (Negative) Urine Nitrate Negative (Negative) Urine Bilirubin Negative (Negative) Urine Urobilinogen Negative (Negative) Ur Leukocyte Esterase Negative (Negative) Urine Glucose Negative (Negative) Urine Opiates Screen (None Detect) Ur Barbiturates Screen (None Detect) Ur Phencyclidine Scrn (None Detect) Ur Amphetamines Screen (None Detect) U Benzodiazepines Scrn (None Detect) Urine Cocaine Screen (None Detect) U Cannabinoids Screen (None Detect) Serum Alcohol (<10) mg/dL 09/10/17 Range/Units 14:35 WBC (3.5-10.8) 10^3/ul RBC (4.0-5.4) 10^6/ul Hgb (12.0-16.0) g/dl Hct (35-47) % MCV (80-97) fL MCH (27-31) pg MCHC (31-36) g/dl RDW (10.5-15) % Plt Count (150-450) 10^3/ul MPV (7.4-10.4) um3 Neut % (Auto) (38-83) % Lymph % (Auto) (25-47) % [place] % (Auto) (1-9) % Eos % (Auto) (0-6) % Baso % (Auto) (0-2) % Absolute Neuts (auto) (1.5-7.7) 10^3/ul Absolute Lymphs (auto) (1.0-4.8) 10^3/ul Absolute Monos (auto) (0-0.8) 10^3/ul Absolute Eos (auto) (0-0.6) 10^3/ul Absolute Basos (auto) (0-0.2) 10^3/ul Absolute Nucleated RBC 10^3/ul Nucleated RBC % Sodium (133-145) mmol/L Potassium (3.5-5.0) mmol/L Chloride (101-111) mmol/L Carbon Dioxide (22-32) mmol/L Anion Gap (2-11) mmol/L BUN (6-24) mg/dL Creatinine (0.51-0.95) mg/dL Est GFR ( Amer) (>60) Est GFR (Non-Af Amer) (>60) BUN/Creatinine Ratio (8-20) Glucose (70-100) mg/dL Lactic Acid (0.5-2.0) mmol/L Calcium (8.6-10.3) mg/dL Magnesium (1.9-2.7) mg/dL Total Bilirubin (0.2-1.0) mg/dL AST (13-39) U/L ALT (7-52) U/L Alkaline Phosphatase (34-104) U/L Ammonia (16-53) mol/L Troponin I (<0.04) ng/mL Total Protein (6.4-8.9) g/dL Albumin (3.2-5.2) g/dL Globulin (2-4) g/dL Albumin/Globulin Ratio (1-3) Lipase (11.0-82.0) U/L TSH (0.34-5.60) mcIU/mL Urine Color Urine Appearance Urine pH (5-9) Ur Specific [place] (1.010-1.030) Urine Protein (Negative) Urine Ketones (Negative) Urine Blood (Negative) Urine Nitrate (Negative) Urine Bilirubin (Negative) Urine Urobilinogen (Negative) Ur Leukocyte Esterase (Negative) Urine Glucose (Negative) Urine Opiates Screen None detected (None Detect) Ur Barbiturates Screen None detected (None Detect) Ur Phencyclidine Scrn None detected (None Detect) Ur Amphetamines Screen None detected (None Detect) U Benzodiazepines Scrn None detected (None Detect) Urine Cocaine Screen None detected (None Detect) U Cannabinoids Screen Presumptive positive H (None Detect) Serum Alcohol (<10) mg/dL Result Diagrams: 09/10/17 12:41 09/10/17 14:12 Lab Statement: Any lab studies that have been ordered have been reviewed, and results considered in the medical decision making process. - Radiology Chest XR Xray Interpretation: No Acute Changes - IMPRESSION: No evidence for active cardiopulmonary disease. Dr. Sheehan has reviewed this radiology report. Radiology Interpretation Completed By: Radiologist - CT Brain CT CT Interpretation Completed By: Radiologist - pending official radiologist report, please see [employer]. - EKG 12:31 Cardiac Rate: NL EKG Rhythm: Sinus Rhythm - at [address] Segment: Normal Course/Dx Course Of Treatment: [employer] Withdrawal Assessment Scale for Alcohol (CIWA-Ar) used with a score of Assessment/Plan: pt seen to be severely hyponatremic and had an episode of syncope here in ED. started on IV fluids, admitted for appropriate correction of hyponatremia - Diagnoses Provider Diagnoses: Hyponatremia - Physician Notifications Discussed Care of Patient With: Nabor Faith Time Discussed With Above Provider: 17:34 Instructed by Provider To: Other - I discussed pt care with Dr. Faith, hospitalist, who has agreed to admit the pt. Discharge - Discharge Plan Condition: Stable Disposition: ADMITTED TO [facility] Referrals: Germaine Sheppard MD [Medical Doctor] - The documentation as recorded by the Alexx sanford Angela accurately reflects the service I personally performed and the decisions made by Aguila blackburn Dong, MD.
--- NOTE | 2017-09-10 20:01 | RAD ---
INDICATION: Hyponatremia COMPARISON: None TECHNIQUE: Noncontrast axial source images were acquired from the skull base to the vertex. FINDINGS: Ventricles/sulci: There is cortical atrophy with compensatory dilatation of the CSF spaces. Brain parenchyma: There is no focal parenchymal finding, evidence of intracranial mass, or intracranial mass effect. Intracranial hemorrhage:None. Extra-axial spaces: There are no abnormal extra axial fluid collections or evidence of extra-axial mass. Calvarium: There is no calvarial fracture or other calvarial abnormality. Scalp: There is no evidence of scalp or extracalvarial soft tissue abnormality. Paranasal sinuses/mastoid: The paranasal sinuses and mastoid air cells are clear. Other: None. IMPRESSION: Cortical atrophy. No acute intracranial findings
[2017-09-10] MEDS ORDERED: Docusate CAP* 100 MG PO PRN (20:19)
[2017-09-10] MEDS ORDERED: Magnesium Hydroxide LIQ* 30 ML UDC PO PRN (20:19)
[2017-09-10] MEDS ORDERED: Polyethylene Glycol 3350* 17 GM PACKET PO PRN (20:19)
[2017-09-10] MEDS ORDERED: Magnesium Sulf 4 GM/100 ML IV* 4,000 MG/100 ML BAG IVPB ONE (20:30)
[2017-09-10] MEDS ORDERED: LORazepam TAB(*) 1 MG PO SCH (21:00)
[2017-09-10] MEDS: NS 0.9% 1000 ML* 1,000 ML IV SCH (22:19)
--- NOTE | 2017-09-10 23:53 | HP ---
CC: Germaine Sheppard MD * HISTORY AND PHYSICAL: DATE OF ADMISSION: 09/10/17 PRIMARY CARE PROVIDER: Germaine Sheppard MD ATTENDING PHYSICIAN: Alisa Vargas MD * (dictated by Nidia Quiles NP). CHIEF COMPLAINT: Syncopal episode. HISTORY OF PRESENT ILLNESS: Ms. Samson is a 52-year-old female with past medical history significant for alcoholism, anemia, hypertension, mitral valve prolapse, GERD, history of V-tach, migraines, remote history of tuberculosis, anorexia and bulimia, who presented to the emergency room after passing out at home. The patient states that she has been detoxing herself off alcohol since 09/06/17, with using Ativan. She states she has generally been feeling weak, constipated, lightheaded, and dizzy. She stated that she got up and went to the bathroom and felt tired and did not trip, but passed out. She reports drinking half a bottle of vodka and a bottle and a half of champagne daily. She reports marijuana use and had marijuana today. The patient denies any fever , chills, chest pain, cough, or diarrhea. She reports nausea, constipation, and occasional shortness of breath with exertion. Due to her symptoms, she came to the emergency room. While in the emergency room, the patient was found to be hyponatremic and have hypokalemia. She received IV fluids and lorazepam. She also had a brain CT showing no acute findings, a chest x-ray showing no acute findings and EKG showing a sinus rhythm with rate of 63. Serum troponin 0.00. Due to the patient's syncopal episode, the hospitalists were asked to evaluate her for admission. PAST MEDICAL HISTORY: 1. Alcohol abuse. 2. Anemia. 3. Hypertension. 4. Mitral valve prolapse. 5. GERD. 6. V-tach. 7. Scoliosis. 8. Migraines. 9. Tuberculosis. 10. Anorexia and bulimia. PAST SURGICAL HISTORY: 1. Status post abdominal liposuction. 2. Status post lung surgery. 3. Status post bilateral breast reduction. 4. Status post excision of basal cell carcinoma from her left chest. HOME MEDICATIONS: Include: 1. Pristiq 100 mg oral daily. 2. Zyrtec 150 mg oral twice daily. 3. Thiamine 100 mg oral daily. 4. Omeprazole 20 mg oral daily. 5. Bystolic 10 mg oral daily. 6. Lorazepam 1 mg oral daily as needed for anxiety. ALLERGIES: PAXIL. FAMILY HISTORY: The patient denies any family history of coronary artery disease, diabetes mellitus. The patient's grandfather had a history of sinus carcinoma. Grandmother with a history of breast and ovarian cancer. Mother with a history of squamous cell skin carcinoma and father with a history of basal cell skin carcinoma. SOCIAL HISTORY: The patient denies tobacco use. She reports drinking half a bottle of vodka and one and a half bottles of champagne daily. She smokes marijuana. She is unemployed. Her father, Delgado Daniel, will be her surrogate decision maker in the event she is unable to make decisions for herself. REVIEW OF SYSTEMS: I performed 11-point review of systems. All the pertinent positives and negatives are mentioned in the history of present illness. The remaining review of systems are negative. PHYSICAL EXAMINATION GENERAL APPEARANCE: The patient is alert, pleasant and appears to be in no acute distress. VITAL SIGNS: Temperature 97.8, heart rate 77, respiratory rate 20, O2 sat 100% on room air, blood pressure 149/90. HEENT: Normocephalic, atraumatic. Pupils are equal and reactive to light. Extraocular movements are intact. RESPIRATORY: There is no accessory muscle use. The lungs are clear to auscultation bilateral. CARDIOVASCULAR: Regular rate and rhythm. S1 and S2 present. There are no murmurs, rubs or gallops heard. ABDOMEN: Soft, nontender, nondistended. There are bowel sounds present x4. EXTREMITIES: There is no lower extremity edema. DP and PT pulses are 2+ and symmetric. MUSCULOSKELETAL: There is no clubbing or cyanosis noted. The patient exhibits good strength in all extremities. NEUROLOGICAL: The patient is alert and oriented x4. Cranial nerves II through XII are grossly intact. The patient's hand mold forms builder are equal. Her dorsi and plantarflex and equal bilateral. She has no pronator drift. Her smile is symmetric. Her tongue is midline. Cranial nerves II through XII are grossly intact. PSYCHOLOGICAL: The patient is calm and cooperative. SKIN: There are no rashes or abnormalities seen. DIAGNOSTIC STUDIES/LABORATORY DATA: Sodium 124, potassium 4.1, chloride 94, CO2 of 22, BUN 7, creatinine 0.59, glucose 109, magnesium 1.5. Troponins are 0.00. White blood cell count 4.7, hemoglobin 12.2, hematocrit is 34, platelet count 168,000. Toxicology shows cannabis positive. No benzos were detected. Urinalysis is negative. EKG shows a sinus rhythm, a rate of 63. There are no acute signs of ischemia. No previous EKGs for comparison. Chest x-ray from today. No active cardiopulmonary disease. Brain CT from today. Radiologist's impression: Cortical atrophy. No acute intracranial findings. IMPRESSION: Ms. Samson is a 52-year-old female with past medical history significant for anemia, hypertension, mitral valve prolapse, gastroesophageal reflux disease, remote history of tuberculosis, anorexia, bulimia, and alcohol abuse, who presents to the emergency room after a syncopal episode. She will be admitted as an observation for alcohol withdrawal and syncope. ASSESSMENT/PLAN: 1. Syncope. I suspect this is likely secondary to orthostasis as the patient' s blood pressures dropped from 100 to 50 systolically when she got up while in the emergency room. We will give her IV hydration overnight. Her brain CT is negative. We will monitor her on telemetry. We will do neuro checks q.4 hours and get a transthoracic echocardiogram in the morning. 2. Hyponatremia. I suspect this is secondary to the patient's alcohol abuse. She has received 2 L of saline in the ER. I will give her gentle IV hydration overnight. We will recheck in the morning. 3. Alcohol withdrawal. We will place the patient on a WAM protocol with Ativan. The patient will be continued on thiamine, multivitamin, and folic acid daily. 4. Depression. The patient will be continued on her home Pristiq. 5. Constipation. I have ordered a bowel regimen for the patient. 6. Fluids, electrolytes and nutrition. The patient will be on a regular diet. 7. Code status. Full code. 8. DVT prophylaxis. The patient is at a low risk, will be encouraged to ambulate. If she is unable to ambulate, she will have SCDs. 9. Disposition. Observation. TIME SPENT: Time for this admission was approximately 60 minutes, greater than half of that was spent with the patient discussing medications, past medical history and the events leading to her arrival today and performing a physical examination. The case has been reviewed with the attending, Dr. Vargas, who agrees with the plan of care. NIDIA QUILES, SENIOR DATA SCIENTIST [id number]/[facility] #: [id number] TYESHA
[2017-09-11 07:06] LABS: EGFR Non-African American 119.5 (>60)
[2017-09-11] MEDS ORDERED: Omeprazole CAP* 20 MG PO SCH ×2 (07:30→21:00)
[2017-09-11] MEDS ORDERED: CMCS: Nebivolol TAB (NF) 2.5 MG TAB PO SCH ×2 (09:00→21:00)
[2017-09-11] MEDS ORDERED: Ondansetron TAB* 4 MG PO PRN (09:43)
[2017-09-11] MEDS: Multivitamins/Minerals TAB PO SCH (09:44)
[2017-09-11] MEDS: CMCS: Desvenlafaxine (NF) 50 MG TAB PO SCH (09:44)
[2017-09-11] MEDS: Folic Acid TAB* 1 MG PO SCH (09:45)
[2017-09-11] MEDS: Thiamine TAB* 100 MG TAB PO SCH (09:45)
[2017-09-11] MEDS: NS 0.9% 1000 ML* 1,000 ML IV SCH (11:20)
--- NOTE | 2017-09-11 11:21 | ECHO ---
Patient: KATELYNN MCLAIN [facility] Rec#: [id number] : 1965 Date: 09/11/2017 Age: 52y Height: 160 cm / 63.0 in Weight: 45.8 kg / 100.9 lbs Sex: F BSA: 1.45 Room#: [facility] Admit Date#: 09/10/2017 Type: Inpatient Referring: Christianne Allen NP Reading: Nhan Donaldson MD Hand Frame [employer] Elastic Knitter: Helena Yadav RN RDCS CC: MANUEL FAIRBANKS NP Transthoracic Echocardiogram Indication: Syncope BP: 123/82 HR: 73 Rhythm: NSR Findings History: HTN, mitral valve prolapse, V. tach at age 21, ETOH abuse, marijuana use, migraines, scoliosis, GERD Technical Comments: The study quality is fair. Completed at 1050. Left Ventricle: The left ventricular chamber size is decreased. Global left ventricular wall motion and contractility are within normal limits. There is normal left ventricular systolic function. The estimated ejection fraction is 55-60%. There is an E to A reversal in the mitral valve flow pattern suggestive of diastolic dysfunction. Left Atrium: The left atrial chamber size is normal. Right Ventricle: The right ventricular chamber size and systolic function are within normal limits. Right Atrium: The right atrial cavity size is normal. Aortic Valve: The aortic valve is trileaflet. The aortic valve leaflets are mildly thickened. There is mild aortic regurgitation. There is no evidence of aortic stenosis. Mitral Valve: The mitral valve leaflets are mildly thickened. There is a trace of mitral regurgitation. Tricuspid Valve: The tricuspid valve leaflets are normal. There is trace tricuspid regurgitation. No pulmonary hypertension is noted. Pulmonic Valve: The pulmonic valve structure is not well visualized. There is no evidence of pulmonic regurgitation. There is no pulmonic stenosis. Pericardium: There is no significant pericardial effusion. Aorta: There is no dilatation of the ascending aorta. There is no dilatation of the aortic arch. There is no dilation of the aortic root. Pulmonary Artery: The main pulmonary artery is not well visualized. Venous: The inferior vena cava appears normal in size. There is a greater than 50% respiratory change in the inferior vena cava dimension. Conclusions There is normal left ventricular systolic function. The estimated ejection fraction is 55-60%. Global left ventricular wall motion and contractility are within normal limits. The left ventricular chamber size is decreased. There is an E to A reversal in the mitral valve flow pattern suggestive of diastolic dysfunction. There is mild aortic regurgitation. There is no prior echocardiogram available to compare with at this time. Measurements Name Value Normal Range RVDdMajor (2D) 2.7 cm (2.2 - 4.4) RAd ISD 4CH 4.5 cm (3.4 - 4.9) RA (A4C)W 3.2 cm (2.9 - 4.6) IVSd (2D) 1 cm (0.6 - 1) LVPWd (2D) 1 cm (0.6 - 1) LVIDd (2D) 3.2 cm (3.6 - 5.4) LVIDs (2D) 2 cm - LV FS (2D) 38 % (25 - 45) Aortic Annulus 1.6 cm (1.4 - 2.6) Ao root diameter (2D) 2.9 cm (2.1 - 3.5) Ascending Ao 3.3 cm (2.1 - 3.4) Aortic arch 2 cm (1.8 - 3.4) LA dimension (AP) 2D 2.7 cm (2.3 - 3.8) LAd ISD 4CH 4.4 cm (2.9 - 5.3) LA ISD 4CH W 3.7 cm (2.5 - 4.5) Name Value Normal Range LA ESV SP 4CH (A/L) 44 ml - LA ESV SP 2CH (A/L) 29 ml - LA ESV BP (A/L) 36 ml - LA ESV BP (A/L) index 24.7 ml/m2 - LA ESV SP 4CH (MOD) 41 ml - LA ESV SP 2CH (MOD) 27 ml - Name Value Normal Range MV E-wave Vmax 0.51 m/sec - MV deceleration time 313 msec - MV A-wave Vmax 0.76 m/sec - MV E:A ratio 0.67 ratio - LV septal e' Vmax 0.08 m/sec - LV lateral e' Vmax 0.12 m/sec - LV E:e' septal ratio 6.4 ratio - LV E:e' lateral ratio 4.3 ratio - Name Value Normal Range AV Vmax 1.2 m/sec - AV VTI 22.6 cm - AV peak gradient 6.1 mmHg - AV mean gradient 2.8 mmHg - LVOT Vmax 0.97 m/sec - LVOT VTI 19.3 cm - LVOT peak gradient 3.8 mmHg - LVOT mean gradient 2.1 mmHg - AR PHT 548 msec - NONI Vmax 0.64 m/sec - Name Value Normal Range TR Vmax 1.9 m/sec - TR peak gradient 14 mmHg - RAP 3 mmHg - RVSP 17 mmHg - IVC diameter 1.1 cm - Name Value Normal Range PV Vmax 0.87 m/sec -
--- NOTE | 2017-09-11 12:12 | PN ---
Subjective Date of Service: 09/11/17 Interval History: Patient seen and examined at bedside. Denies fever, chills, lightheadedness, shortness of breath, chest discomfort, N/V/D. Pt reports abdominal discomfort, abdominal bloating, nausea, constipation, and tremors. Tele: Sinus rhythm, rate 70-80's. Family History: Unchanged from Admission Social History: Unchanged from Admission Past Medical History: Unchanged from Admission Objective Active Medications: Desvenlafaxine Succinate (Pristiq (Nf)) 100 mg PO DAILY [facility] Docusate Sodium (Colace Cap*) 100 mg PO BID PRN Reason: CONSTIPATION Folic Acid (Folvite Tab*) 1 mg PO DAILY [facility], [facility]1983 Sodium Chloride (Ns 0.9% 1000 Ml*) 1,000 mls @ 75 mls/hr IV PER RATE [facility] Lorazepam (Ativan Tab(*)) 0 - 6 mg PO .PER [facility] PROTOCOL FORMERLY [facility], 1928–1983 Reason: Protocol Magnesium Hydroxide (Milk Of Magnesia Liq*) 30 ml PO Q6H PRN Reason: CONSTIPATION Multivitamins/Minerals (Theragran/Minerals Tab*) 1 tab PO DAILY FOR[facility]LY [facility]1983 Nebivolol (Bystolic Tab (Nf)) 10 mg PO DAILY@2100 NORMAN Omeprazole (Prilosec Cap*) 20 mg PO DAILY@2100 [facility] Ondansetron HCl (Zofran Tab*) 8 mg PO Q6H PRN Reason: NAUSEA Polyethylene Glycol/Electrolytes (Miralax*) 17 gm PO DAILY PRN Reason: CONSTIPATION Thiamine HCl (Vitamin B-1 Tab*) 100 mg PO DAILY [facility] 1928[facility]1983 Vital Signs - 8 hr 09/11/17 09/11/17 09/11/17 08:05 08:07 08:08 Temperature 98.6 F Pulse Rate 79 80 89 Respiratory 16 16 16 Rate Blood Pressure 134/85 141/93 135/91 (mmHg) O2 Sat by Pulse 96 97 97 Oximetry 09/11/17 09/11/17 10:39 10:46 Temperature 98.4 F Pulse Rate 73 Respiratory 16 20 Rate Blood Pressure 142/95 (mmHg) O2 Sat by Pulse 99 Oximetry Oxygen Devices in Use Now: None Appearance: NAD, laying in bed Ears/Nose/Mouth/Throat: Mucous Membranes Moist Respiratory: Symmetrical Chest Expansion and Respiratory Effort, Clear to Auscultation Cardiovascular: NL Sounds; No Murmurs; No JVD, RRR Abdominal: NL Sounds; No Tenderness; No Distention Extremities: No Edema, - - Mild UE tremors noted Skin: No Rash or Ulcers Neurological: Alert and Oriented x 3, NL Muscle Strength and Tone Lines/Tubes/Other Access: Clean, Dry and Intact Peripheral IV - site benign Nutrition: Taking PO's Result Diagrams: 09/10/17 12:41 09/11/17 06:42 Additional Lab and Data: Assess/Plan/Problems-Billing Assessment: Ms. Samson is a 52 yo female with PMH significant for anemia, HTN, MV prolapse, GERD, hx TB, anorexia & bulimia and alcohol abuse who presented to the emergency room with complaints of a syncopal episode and alcohol withdrawal. - Patient Problems (1) Syncope Code(s): R55 - SYNCOPE AND COLLAPSE SNOMED Code(s): 328296081 Comment: - Suspect secondary to orthostasis, Pt had significant orthostatic VS in the ED - Orthostasis resolved this AM - Brain CT negative - No events noted on tele - Echo pending - Continue gentle IV hydration (2) Hyponatremia Code(s): E87.1 - HYPO-OSMOLALITY AND HYPONATREMIA SNOMED Code(s): 80974583 Comment: - Suspect secondary to ETOH use - Improving (3) Alcohol withdrawal Code(s): F10.239 - ALCOHOL DEPENDENCE WITH WITHDRAWAL, UNSPECIFIED SNOMED Code (s): 913818523 Comment: - WAM score 0-6 - Pt continue to have nausea and tremors - Social work consult, pending - Continue WAM protocol (4) Abdominal pain Code(s): R10.9 - UNSPECIFIED ABDOMINAL PAIN SNOMED Code(s): 45227971 Comment: - With nausea and constipation - Suspect nausea is secondary to ETOH withdrawal and ABD discomfort is secondary to consipation. - Will order bowel medications and if Pt continues to have ABD discomfort after a BM will consider an ABD xray (5) Depression Code(s): F32.9 - MAJOR DEPRESSIVE DISORDER, SINGLE EPISODE, UNSPECIFIED SNOMED Code(s): 33055899 Comment: - Continue Pristiq (6) HTN (hypertension) Code(s): I10 - ESSENTIAL (PRIMARY) HYPERTENSION SNOMED Code(s): 57818777 Comment: - Mostly normotensive today - Pt reports that she was recently started on another BP med (it appreas to be Valsartan 80 mg daily), will hold on starting this for now as Pt was orthostatic when she was admitted - Continue Bystolic (7) DVT prophylaxis Code(s): QKM1861 - SNOMED Code(s): 084031649 Comment: - Encourage ambulation (8) Full code status Code(s): Z78.9 - OTHER SPECIFIED HEALTH STATUS SNOMED Code(s): 529936613 Status and Disposition: OBV. Discharge to home when medically stable, possibly later today or in the AM.
[2017-09-11] MEDS ORDERED: Potassium Chlor TAB* 20 MEQ TAB.ER PO ONE (12:17)
[2017-09-11] MEDS: KCL 10 MEQ/50 ML IVPREMIX* 10 MEQ/50 ML BAG IV SCH ×2 (12:53→14:14)
[2017-09-12] MEDS: NS 0.9% 1000 ML* 1,000 ML IV SCH (02:30)
[2017-09-12 06:52] LABS: EGFR Non-African American 140.3 (>60)
[2017-09-12] MEDS: Folic Acid TAB* 1 MG PO SCH (09:00)
[2017-09-12] MEDS: CMCS: Desvenlafaxine (NF) 50 MG TAB PO SCH (09:00)
[2017-09-12] MEDS: Thiamine TAB* 100 MG TAB PO SCH (09:00)
[2017-09-12] MEDS: Multivitamins/Minerals TAB PO SCH (09:00)
--- NOTE | 2017-09-12 12:05 | PN ---
Subjective Date of Service: 09/12/17 Interval History: Patient seen and examined at bedside. Denies fever, chills, shortness of breath , chest discomfort, N/V/D. Pt states that her abdominal discomfort has improved and she feels that it was related to the MG she received at admission, in the past MG has given her diarrhea. Tele: Sinus rythm, rate 80's. Family History: Unchanged from Admission Social History: Unchanged from Admission Past Medical History: Unchanged from Admission Objective Active Medications: Desvenlafaxine Succinate (Pristiq (Nf)) 100 mg PO DAILY [facility] Docusate Sodium (Colace Cap*) 100 mg PO BID PRN Reason: CONSTIPATION Folic Acid (Folvite Tab*) 1 mg PO DAILY [facility] Sodium Chloride (Ns 0.9% 1000 Ml*) 1,000 mls @ 75 mls/hr IV PER RATE [facility] Lorazepam (Ativan Tab(*)) 0 - 6 mg PO .PER [facility] PROTOCOL [facility] Magnesium Hydroxide (Milk Of Magnesia Liq*) 30 ml PO Q6H PRN Reason: CONSTIPATION Multivitamins/Minerals (Theragran/Minerals Tab*) 1 tab PO DAILY [facility] Nebivolol (Bystolic Tab (Nf)) 10 mg PO DAILY@2100 [facility] Omeprazole (Prilosec Cap*) 20 mg PO DAILY@2100 [facility] Ondansetron HCl (Zofran Tab*) 8 mg PO Q6H PRN Reason: NAUSEA Polyethylene Glycol/Electrolytes (Miralax*) 17 gm PO DAILY PRN Reason: CONSTIPATION Thiamine HCl (Vitamin B-1 Tab*) 100 mg PO DAILY [facility] Vital Signs - 8 hr 09/12/17 09/12/17 09/12/17 04:01 06:10 08:00 Temperature 97.9 F 97.9 F Pulse Rate 72 70 Respiratory 20 16 20 Rate Blood Pressure 129/71 140/83 (mmHg) O2 Sat by Pulse 96 98 Oximetry 09/12/17 09/12/17 08:08 10:18 Temperature 98.2 F Pulse Rate 75 74 Respiratory 18 18 Rate Blood Pressure 131/92 133/82 (mmHg) O2 Sat by Pulse 100 100 Oximetry Oxygen Devices in Use Now: None Appearance: NAD, sitting up in bed Ears/Nose/Mouth/Throat: Mucous Membranes Moist Respiratory: Symmetrical Chest Expansion and Respiratory Effort, Clear to Auscultation Cardiovascular: NL Sounds; No Murmurs; No JVD, RRR Abdominal: NL Sounds; No Tenderness; No Distention Extremities: No Edema Skin: No Rash or Ulcers Neurological: Alert and Oriented x 3, NL Muscle Strength and Tone Lines/Tubes/Other Access: Clean, Dry and Intact Peripheral IV - site benign Nutrition: Taking PO's Result Diagrams: 09/10/17 12:41 09/12/17 05:59 Additional Lab and Data: Assess/Plan/Problems-Billing Assessment: Ms. Samson is a 52 yo female with PMH significant for anemia, HTN, MV prolapse, GERD, hx TB, anorexia & bulimia and alcohol abuse who presented to the emergency room with complaints of a syncopal episode and alcohol withdrawal. - Patient Problems (1) Syncope Code(s): R55 - SYNCOPE AND COLLAPSE SNOMED Code(s): 853399590 Comment: - Suspect secondary to orthostasis, Pt had significant orthostatic VS in the ED - Orthostasis resolved - Brain CT negative - No events noted on tele - Echo with no significant findings (2) Hyponatremia Code(s): E87.1 - HYPO-OSMOLALITY AND HYPONATREMIA SNOMED Code(s): 51046214 Comment: - Suspect secondary to ETOH use - Improving (3) Alcohol withdrawal Code(s): F10.239 - ALCOHOL DEPENDENCE WITH WITHDRAWAL, UNSPECIFIED SNOMED Code (s): 417473213 Comment: - WAM score 0-5 - Pt continue to have nausea and tremors - Social work consult (4) Abdominal pain Code(s): R10.9 - UNSPECIFIED ABDOMINAL PAIN SNOMED Code(s): 01309408 Comment: - Improved - Suspect nausea is secondary to ETOH withdrawal and ABD discomfort is secondary to consipation. (5) Depression Code(s): F32.9 - MAJOR DEPRESSIVE DISORDER, SINGLE EPISODE, UNSPECIFIED SNOMED Code(s): 04472925 Comment: - Continue Pristiq (6) HTN (hypertension) Code(s): I10 - ESSENTIAL (PRIMARY) HYPERTENSION SNOMED Code(s): 18655624 Comment: - Normotensive - Pt reports that she was recently started on another BP med (it appreas to be Valsartan 80 mg daily), will hold on starting this for now as Pt was orthostatic when she was admitted - Continue Bystolic (7) DVT prophylaxis Code(s): AMB2912 - SNOMED Code(s): 174094529 Comment: - Encourage ambulation (8) Full code status Code(s): Z78.9 - OTHER SPECIFIED HEALTH STATUS SNOMED Code(s): 903065153 Status and Disposition: OBV. Stable for discharge to home.
[2017-09-12 12:23] VITALS: BP 149/89
--- NOTE | 2017-09-14 09:54 | DS ---
CC: Dr. Germaine Sheppard * DISCHARGE SUMMARY: DATE OF ADMISSION: 09/10/17 DATE OF DISCHARGE: 09/12/17 ATTENDING PHYSICIAN: Dr. Leda Cheney * (dictated by Nidia Quiles NP) PRIMARY CARE PROVIDER: Dr. Germaine Sheppard. PRIMARY DIAGNOSES: 1. Syncopal episode suspect secondary to orthostatic hypotension. 2. Orthostatic hypotension, resolved. 3. Hyponatremia, improved. 4. Alcohol withdrawal. SECONDARY DIAGNOSES: 1. Depression. 2. Constipation. STUDIES WHILE IN THE HOSPITAL: 1. Chest x-ray from 09/10/17. Radiologist's impression: No active cardiopulmonary disease. 2. Brain CT from 09/10/17. Radiologist's impression: Cortical atrophy. No acute intracranial findings. DISCHARGE MEDICATIONS: New home medications: 1. Folic acid 1 mg oral daily. 2. Multivitamin 1 tablet oral daily. Continued home medications: 1. Omeprazole 20 mg oral daily. 2. Bystolic 10 mg oral daily. 3. Lorazepam 1 mg oral daily as needed for anxiety. 4. Ranitidine 150 mg oral twice daily as needed for heartburn. 5. Thiamine 100 mg oral daily. 6. Pristiq 100 mg oral daily. HISTORY OF PRESENT ILLNESS/HOSPITAL COURSE: Ms. Samson is a 52-year-old female with past medical history significant for alcoholism, anemia, hypertension, mitral valve prolapse, GERD, V-tach, migraines, remote history of tuberculosis, anxiety, depression who presented to the emergency room after passing out at home. The patient stated that she has been self detoxing herself since 09/08/17 using Ativan that she has prescribed. She states that she is feeling generally weak, constipated, lightheaded, and dizzy. She got up and went to the bathroom and felt tired, no she did not trip, but passed out. She reports drinking half a bottle of vodka and a bottle and a half of champagne daily and occasional marijuana use and used marijuana on her day of presentation. She denied any other symptoms of cold, such as fever or chills, cough, diarrhea or chest pain. She is reporting nausea, constipation, shortness of breath with exertion and due to her symptoms she presented to the emergency room. While in the emergency room, the patient was noted to have hyponatremia and hypokalemia, suspect to be secondary to her alcohol use. She received IV fluids and lorazepam. She had a brain CT showing no acute findings, a chest x- ray with no acute findings. Troponin 0.00. Due to her syncopal episode the patient was referred to the hospitalist service for admission. While in the hospital, the patient was placed on a WAM protocol receiving Ativan as needed. She was seen by Social Work and she discussed therapies in addition to inpatient versus outpatient alcohol treatment. She was complaining of abdominal pain and declined an abdominal x-ray. The patient stated that she felt it was secondary to the magnesium she received on admission as magnesium did not cause diarrhea in her. She was feeling well and the initial orthostatic hypotension she has had on admission had resolved during her stay. She is ambulating around and tolerating a regular diet. Ms. Samson is stable for discharge to home. Vital signs are as follows: Temperature of 99.0, heart rate of 82, respiratory rate 16, O2 sat 100% on room air, blood pressure 149/89. DISCHARGE PLAN: Ms. Samson will be discharged home, activity as tolerated. She will be on regular diet. As far as her alcoholism. She is encouraged to talk to a psychiatrist and consider inpatient or outpatient rehab. She has been encouraged to not drink alcohol anymore. I suspect her syncopal episode was secondary to orthostatic hypotension and her orthostatic hypotension resolved. Ms. Samson tells me that she was started on valsartan by her clay processing labourer, but due to the orthostasis she was having during her stay, I have recommended that she continue to hold that and to discuss with either her clay processing labourer or Dr. Sheppard about resuming this. She has a follow up appointment with Dr. Sheppard on 09/18/17 at 8:50 a.m. She has been encouraged to change position slowly and to start taking a multivitamin and folic acid. Her other previous medications have been resumed. She has been asked to return to the emergency room for chest pain, shortness of breath. This is a summarized report of a complex medical history and hospital stay. For further details, please see the entire medical record. TIME SPENT: Time for this discharge was approximately 50 minutes, greater than half of that was spent [id number] with the patient discussing discharge plans and instructions. CONDITION ON DISCHARGE: Stable. NIDIA QUILES, DISTRICT SALES MANAGER [id number]/[facility] #: [id number] TYESHA
== END 2017-09-12 15:30 | disposition home or self-care (01) | DRG 312 ==
LOC: ED 12:12 → MEDTELE 19:55 → OBSVTOIN 09-11 22:47
PROVIDERS: ADMIT Pediatrics; ATTEND Internal Medicine
DX: I95.1 Orthostatic hypotension (principal); F50.00 Anorexia nervosa, unspecified; E87.1 Hypo-osmolality and hyponatremia; M41.9 Scoliosis, unspecified; E83.42 Hypomagnesemia; F50.2 Bulimia nervosa; F10.239 Alcohol dependence with withdrawal, unspecified; Y90.9 Presence of alcohol in blood, level not specified; F32.9 Major depressive disorder, single episode, unspecified; K59.00 Constipation, unspecified; I10 Essential (primary) hypertension; K21.9 Gastro-esophageal reflux disease without esophagitis; I34.1 Nonrheumatic mitral (valve) prolapse; G43.909 Migraine, unspecified, not intractable, without status migrainosus; F41.9 Anxiety disorder, unspecified; E87.6 Hypokalemia; Z86.11 Personal history of tuberculosis; Z88.8 Allergy status to other drugs, medicaments and biological substances; Z80.41 Family history of malignant neoplasm of ovary; Z80.8 Family history of malignant neoplasm of other organs or systems; Z56.0 Unemployment, unspecified; Z88.0 Allergy status to penicillin; Z88.5 Allergy status to narcotic agent
CPT/HCPCS: 36415; 70450; 71046; 80048; 80053; 80307; 80320; 81003; 82140; 83605; 83690; 83735; 84443; 84484; 85025; 93005; 93306; 99283; A9270-GY; G0378; G0480; J2060; J3411; J3475; J3480

== ENCOUNTER 2017-11-29 14:48 | Emergency (ER) | payer MEDICARE ==
[2017-11-29 15:04] VITALS: BP 151/99
[2017-11-29] MEDS ORDERED: Thiamine IV 100 MG, Folic Acid IV* 1 MG, Multiple Vitamin IV ADULT* 10 ML in D5NS 0.9% ... IV ONE (15:17)
--- OUTSIDE RECORDS SUMMARY | 2017-11-29 16:24 | XMS REPORT ---
:1965 External Reference #:[id number] Author Organization [facility] Address [address] [address] Phone [phone] Care Team Providers Name Role Phone Germaine Sheppard MD Primary Care Physician Unavailable Payers Type Date Identification Numbers Payment Provider Subscriber Medicare Primary Policy Number: [id number] Medicare Katelynn Samson PayID: [id number] [facility] [address] [place] [address] Problems Date Description Provider Status Onset: 05/12/2016 Essential hypertension Sergio Russell NP Active Onset: 05/12/2016 Insomnia Sergio Russell NP Active Onset: 05/12/2016 H/O: tuberculosis Sergio Russell NP Active Onset: 05/12/2016 Alcohol abuse Sergio Russell NP Active Onset: 08/28/2017 Mitral valve prolapse Sergio Russell NP Active Family History Date [...] Active Tablets 1mg 30tab 1/2-1 tab by s mouth twice JUNIE Russell daily as needed Bystolic 05/02 Active Tablets 10mg 30tab 1 tablet by I10 s mouth daily JUINE Russell Thiamine HCL 07/17 Active Tablets 100mg 90tab 1 by mouth F10.20 Sergio s every day JUNIE Russell Folic Acid 07/17 Active Tablets 1mg 60tab take 1 tablet F10.20 Sergio s by mouth in JUNIE Russell the morning Blood Pressure 06/26 Active Misc 1unit check bp I10 Sergio Monitor s twice weekly JUNIE Russell Inflate Small at home Cuff Omeprazole 06/26 Active Capsules 20mg 90cap 1 by mouth K21.[address] laboy once daily JUNIE Russell Ranitidine HCL 06/26 Active Tablets 150mg 180ta one tablet K21.9 Sergio bs twice daily JUNIE Russell as needed B Complex Active Capsules 1 by mouth Unknown /0000 every day Multi For Her Active Capsules once a day Unknown /0000 otc Desvenlafaxine Active Tablets 100mg 1 by mouth Unknown Succinate ER /0000 ER 24HR every morning Clindamycin HCL 08/18 Hx Capsules 150mg JUNIE Russell - 08/18 Levofloxacin 08/18 Hx Tablets 500mg 10tab one by mouth Sergio s daily for 10 JUNIE Russell - days 08/28 Bystolic 04/22 Hx Tablets 5mg 90tab 1 by mouth I10 Sergio s every day JUNIE Russell - 05/02 Ciprofloxacin 10/03 Hx Tablets 250mg 14tab take one Sergio HCL /2016 s tablet twice JUNIE Russell - a day for 7 10/03 days. Nitrofurantoin 10/03 Hx Capsules 100mg 14cap take one Serigo Macrocrystal s capsule twice JUNIE Russell - daily for 7 10/10 days. Bystolic 07/22 Hx Tablets 5mg 60tab take 1 tablet Sergio s by mouth once JUNIE Russell - daily 02/12 Bystolic 06/26 Hx Tablets 2.5mg 90tab 1 tablet by I10 Sergio s mouth daily JUNIE Russell - 05/02 Slow-Mag 05/20 Hx Tablets 71.5-119m 240ta two tablets DR rohan benson twice daily JUNIE Russell - (vacation 02/12 override) Vitamin B-1 Hx Tablets 250mg 2 po qd Unknown /0000 - 09/27 Doxepin HCL Hx Capsules 25mg 1 tab by Unknown /0000 mouth at - bedtime ( 02/12 ) Vital Signs Date Vital Result Comment 11/25/2017 Weight 105.00 lb Heart Rate 83 /min BP Systolic 124 mmHg pt states she hasnt drank for about 20 hrs BP Diastolic 72 mmHg pt states she hasnt drank for about 20 hrs Body Temperature 97.3 F O2 % BldC Oximetry 98 % 09/18/2017 Weight 102.00 lb Heart Rate 52 /min BP Systolic 120 mmHg BP Diastolic 68 mmHg Body Temperature 97.9 F O2 % BldC Oximetry 98 % 08/15/2017 Weight 102.00 lb Pt reports. Heart [...] Test Date Test Result H/L Range Note Basic Metabolic Panel 09/23/2017 Sodium 131 mmol/L Low 133-145 Potassium 4.7 mmol/L 3.5-5.0 Chloride 95 mmol/L Low 101-111 Co2 Carbon Dioxide 29 mmol/L 22-32 Anion Gap 7 mmol/L 2-11 Glucose 65 mg/dL Low 70-100 Blood Urea Nitrogen 6 mg/dL 6-24 Creatinine 0.59 mg/dL 0.51-0.95 BUN/Creatinine Ratio 10.2 8-20 Calcium 9.8 mg/dL 8.6-10.3 Egfr Non- 107.9 >60 Egfr 138.8 >60 1 Laboratory test finding 09/23/2017 Magnesium 1.7 mg/dL Low 1.9-2.7 Lipid Profile (Trig/Chol/HDL) 09/23/2017 Triglycerides 189 mg/dL 2 Cholesterol 214 mg/dL 3 HDL Cholesterol 72.8 mg/dL 4 LDL Cholesterol 103 mg/dL 5 Laboratory test finding 09/23/2017 Cortisol 13.15 g/dL 6 Laboratory test finding 09/10/2017 Magnesium 1.5 mg/dL Low 1.9-2.7 Lipase 14 U/L 11.0-82.0 Alcohol < 10 mg/dL <10 TSH (Thyroid Stim Horm) 1.17 mcIU/mL 0.34-5.60 Comp Metabolic Panel 09/10/2017 Sodium 122 mmol/L Low 133-145 Potassium 3.4 mmol/L Low 3.5-5.0 Chloride 89 mmol/L Low 101-111 Co2 Carbon Dioxide 26 mmol/L 22-32 Anion Gap 7 mmol/L 2-11 Glucose 127 mg/dL High 70-100 Blood Urea Nitrogen 7 mg/dL 6-24 Creatinine 0.77 mg/dL 0.51-0.95 BUN/Creatinine Ratio 9.1 8-20 Calcium 9.4 mg/dL 8.6-10.3 Total Protein 6.7 g/dL 6.4-8.9 Albumin 3.7 g/dL 3.2-5.2 Globulin 3.0 g/dL 2-4 Albumin/Globulin Ratio 1.2 1-3 Total Bilirubin 0.80 mg/dL 0.2-1.0 Alkaline Phosphatase 81 U/L 34-104 Alt 51 U/L 7-52 Ast 71 U/L High 13-39 Egfr Non- 79.3 >60 Egfr 102.0 >60 7 Laboratory test finding 09/10/2017 Ammonia 47 ?mol/L 16-53 Lactic Acid 1.4 mmol/L 0.5-2.0 8 Troponin-I (TnI) 0.00 ng/mL <0.04 CBC Auto Diff 09/10/2017 White Blood Count 4.7 10^3/uL 3.5-10.8 Red Blood Count 3.41 10^6/uL Low 4.0-5.4 Hemoglobin 12.2 g/dL 12.0-16.0 Hematocrit 34 % Low 35-47 Mean Corpuscular Volume 100 fL High 80-97 Mean Corpuscular Hemoglobin 36 pg High 27-31 Mean Corpuscular HGB Conc 36 g/dL 31-36 Red Cell Distribution Width 13 % 10.5-15 Platelet Count 168 10^3/uL 150-450 Mean Platelet Volume 7 um3 Low 7.4-10.4 Abs Neutrophils 3.0 10^3/uL 1.5-7.7 Abs Lymphocytes 1.0 10^3/uL 1.0-4.8 Abs Monocytes 0.7 10^3/uL 0-0.8 Abs Eosinophils 0.1 10^3/uL 0-0.6 Abs Basophils 0 10^3/uL 0-0.2 Abs Nucleated RBC 0 10^3/uL Granulocyte % 62.6 % 38-83 Lymphocyte % 21.0 % Low 25-47 Monocyte % 13.8 % High 1-9 Eosinophil % 1.8 % 0-6 Basophil % 0.8 % 0-2 Nucleated Red Blood Cells % 0.1 Basic Metabolic Panel 09/10/2017 Sodium 124 mmol/L Low 133-145 Potassium 4.1 mmol/L 3.5-5.0 Chloride 94 mmol/L Low 101-111 Co2 Carbon Dioxide 22 mmol/L 22-32 Anion Gap 8 mmol/L 2-11 Glucose 109 mg/dL High 70-100 Blood Urea Nitrogen 7 mg/dL 6-24 Creatinine 0.59 mg/dL 0.51-0.95 BUN/Creatinine Ratio 11.9 8-20 Calcium 8.4 mg/dL Low 8.6-10.3 Egfr Non- 107.9 >60 Egfr 138.8 >60 9 Urine Drug SCR ED 09/10/2017 Amphetamine Ur Screen None Detected None Detect & [facility] Barbiturates Urine Screen None Detected None Detect Benzodiazepine Urine Screen None Detected None Detect Urine Cannabinoids Screen Presumptive Posi <SEE NOTE> None Detect 10 Urine Cocaine Screen None Detected None Detect Urine Opiates Screen None Detected None Detect Urine Phencyclidine Screen None Detected None Detect 11 Urinalysis Profile 09/10/2017 Urine Color Yellow Urine Appearance Clear Urine Specific [place] 1.005 Low 1.010-1.030 Urine pH 7.0 5-9 Urine Urobilinogen Negative Negative Urine Ketones Negative Negative Urine Protein Negative Negative Urine Leukocytes Negative Negative Urine Blood Negative Negative Urine Nitrite Negative Negative Urine Bilirubin Negative Negative Urine Glucose Negative Negative Comp Metabolic Panel 08/28/2017 Sodium 130 mmol/L Low 133-145 Potassium 3.8 mmol/L 3.5-5.0 Chloride 93 mmol/L Low 101-111 Co2 Carbon Dioxide 30 mmol/L 22-32 Anion Gap 7 mmol/L 2-11 Glucose 77 mg/dL 70-100 Blood Urea Nitrogen 8 mg/dL 6-24 Creatinine 0.51 mg/dL 0.51-0.95 BUN/Creatinine Ratio 15.7 8-20 Calcium 8.6 mg/dL 8.6-10.3 Total Protein 7.0 g/dL 6.4-8.9 Albumin 4.0 g/dL 3.2-5.2 Globulin 3.0 g/dL 2-4 Albumin/Globulin Ratio 1.3 1-3 Total Bilirubin 0.70 mg/dL 0.2-1.0 Alkaline Phosphatase 89 U/L 34-104 Alt 37 U/L 7-52 Ast 131 U/L High 13-39 Egfr Non- 127.6 >60 Egfr 164.2 >60 12 CBC Auto Diff 08/28/2017 White Blood Count 6.7 10^3/uL 3.5-10.8 Red Blood Count 3.42 10^6/uL Low 4.0-5.4 Hemoglobin 12.0 g/dL 12.0-16.0 Hematocrit 34 % Low 35-47 Mean Corpuscular Volume 101 fL High 80-97 Mean Corpuscular Hemoglobin 35 pg High 27-31 Mean Corpuscular HGB Conc 35 g/dL 31-36 Red Cell Distribution Width 13 % 10.5-15 Platelet Count 143 10^3/uL Low 150-450 Mean Platelet Volume 7 um3 Low 7.4-10.4 Abs Neutrophils 4.5 10^3/uL 1.5-7.7 Abs Lymphocytes 1.5 10^3/uL 1.0-4.8 Abs Monocytes 0.5 10^3/uL 0-0.8 Abs Eosinophils 0.1 10^3/uL 0-0.6 Abs Basophils 0.1 10^3/uL 0-0.2 Abs Nucleated RBC 0 10^3/uL Granulocyte % 67.0 % 38-83 Lymphocyte % 22.6 % Low 25-47 Monocyte % 7.7 % 1-9 Eosinophil % 1.9 % 0-6 Basophil % 0.8 % 0-2 Nucleated Red Blood Cells % 0.1 Comp Metabolic Panel 05/29/2017 Sodium 131 mmol/L [...] Egfr Non- 100.0 >60 Egfr 128.6 >60 13 Laboratory test finding 05/29/2017 Magnesium 1.8 mg/dL [...] Egfr Non- 112.7 >60 Egfr 145.0 >60 14 Laboratory test finding 02/07/2017 Ferritin 249.5 ng/mL 11-307 Magnesium 1.8 mg/dL Low 1.9-2.7 CBC Auto Diff 02/07/2017 White Blood Count [...] Blood Cells % 0 Laboratory test finding 12/17/2016 Occult Blood - [...] Egfr Non- 86.1 >60 Egfr 110.7 >60 15 Iron & Iron Binding Capacity 10/01/2016 Iron 17 g/dL Low 50-212 Unsaturated Iron Binding 243 g/dL Total Iron Binding Capacity 260 g/dL 250-450 % Iron Saturation 7 % Low 15-55 Laboratory test finding 10/01/2016 Folic Acid (Folate) > 20.00 ng/mL & gt;3.99 Vitamin B12 > 1450 pg/mL High 180-914 16 Ferritin 407.6 ng/mL High 11-307 Urine Culture And 10/01/2016 Urine Culture SEE RESULT BELOW 17 Sensitivities Ua Routine 10/01/2016 Ua Specific [place] 1.015 Ua PH 5 Ua Color yellow Ua Appera cloudy Ua WBC small Ua Protein 30+ Ua Glucose -- Ua Ketones -- Ua Bilirubin small Ua Urobilinogen normal Ua Nitrite -- Ua Occult Blood large Basic Metabolic Panel 08/09/2016 Sodium 132 mmol/L Low 133-145 Potassium 4.1 mmol/L 3.5-5.0 Chloride 95 mmol/L Low 101-111 Co2 Carbon Dioxide 28 mmol/L 22-32 Anion Gap 9 mmol/L 2-11 Glucose 95 mg/dL 70-100 Blood Urea Nitrogen 5 mg/dL Low 6-24 Creatinine 0.61 mg/dL 0.51-0.95 BUN/Creatinine Ratio 8.2 8-20 Calcium 9.6 mg/dL 8.6-10.3 Egfr Non- 104.2 >60 Egfr 134.1 >60 18 Laboratory test finding 08/09/2016 TSH (Thyroid Stim Horm) 0.68 mcIU/mL 0.34-5.60 Mercury Blood 8 ng/mL 0-9 19 Laboratory test finding 07/16/2016 Magnesium 1.8 mg/dL Low 1.9-2.7 Basic Metabolic Panel 07/16/2016 Sodium 125 mmol/L Low 133-145 Potassium 4.2 mmol/L 3.5-5.0 Chloride 90 mmol/L Low 101-111 Co2 Carbon Dioxide 28 mmol/L 22-32 Anion Gap 7 mmol/L 2-11 Glucose 80 mg/dL 70-100 Blood Urea Nitrogen 5 mg/dL Low 6-24 Creatinine 0.59 mg/dL 0.51-0.95 BUN/Creatinine Ratio 8.5 8-20 Calcium 9.7 mg/dL 8.6-10.3 Egfr Non- 108.3 >60 Egfr 139.3 >60 20 CBC Auto Diff 05/18/2016 White Blood Count [...] 0-2 Nucleated Red Blood Cells % 0 Lipid Profile (Trig/Chol/HDL) 05/18/2016 Triglycerides 144 mg/dL 21 Cholesterol 240 mg/dL 22 HDL Cholesterol 103.6 mg/dL 23 LDL Cholesterol 108 mg/dL 24 Laboratory test finding 05/18/2016 Magnesium 1.6 mg/dL Low 1.9-2.7 25 Comp Metabolic Panel 05/18/2016 Sodium 130 mmol/L [...] Egfr Non- 100.9 >60 Egfr 129.7 >60 26 1 Because ethnic data is not always [...] 5 Kidney failure <15 (or dialysis) 2 Desirable: <150 Borderline High: 150-199 High: 200-499 Very High: >500 3 Desirable: <200 Borderline High: 200-239 High: >239 4 Low: <40 Desirable: 40-60 High: >60 5 Desirable: <100 Near Optimal: 100-129 Borderline High: 130-159 High: 160-189 Very High: >189 6 AM 8.7-22.4 PM <10 7 Because ethnic data is not always [...] 5 Kidney failure <15 (or dialysis) 8 [facility] Severe Sepsis and Septic Shock Management Bundle Measure requires all lactic acids initially measuring >2.0 mmol/L be repeated. 9 Because ethnic data is not always readily [...] 15-29 5 Kidney failure <15 (or dialysis) 10 Presumptive Positive Presumptive positive results are unconfirmed. 11 The urine specimen was tested at the listed cutoffs: Drug class test level (ng/mL) Amphetamines 500 Barbiturates 200 Benzodiazepine metabolites 200 Cocaine metabolites 150 Cannabinoids 50 Opiates 300 Pcp 25 Specimen was received without chain of custody. Results should be used for medical purposes only. 12 Because ethnic data is not always readily [...] 15-29 5 Kidney failure <15 (or dialysis) 13 Because ethnic data is not always readily [...] 15-29 5 Kidney failure <15 (or dialysis) 14 Because ethnic data is not always [...] 15-29 5 Kidney failure <15 (or dialysis) 15 Because ethnic data is not always readily [...] 15-29 5 Kidney failure <15 (or dialysis) 16 Normal Range 180 to 914 Indeterminate Range 145 to 180 Deficient Range <145 17 SEE RESULT BELOW Name: KATELYNN SAMSON : [address]: Sergio Russell NP Acct: [id number] Unit: [id number] AGE: 51 Location: [facility] Re10/01/16 SEX: F Status: REG REF SPEC: [id number] FABIANO: 10/01/16-[address]: Sergio Russell NP REQ: [id number] RECD: 10/01/16-0735 STATUS: COMP _ SOURCE: URINE SPDESC: ORDERED: Urine Culture COMMENTS: [id number] Urine Source: Random Procedure Result Reported Site Urine Culture Final 10/03/16- 740 ML Organism 1 ESCHERICHIA COLI [place] Count >100,000 (Many) CFU/ML 1. ESCHERICHIA COLI [...] antibiotic reporting. * ML - MAIN LAB ([facility]) . END OF REPORT * ML=Testing performed at Main Lab DEPARTMENT OF PATHOLOGY, [address] [place] [address] Mele Corey M.D. Director [facility] # [id number] 18 Because ethnic data is not always readily [...] 15-29 5 Kidney failure <15 (or dialysis) 19 ADDITIONAL INFORMATION This test was developed and its performance characteristics determined by [facility] in a manner consistent with CLIA requirements. This test has not been cleared or approved by the U.S. Food and Drug Administration. Test Performed by: [place] [address] Sales Department Clerk: Ollie Oliveira II, M.D., Ph.D. 20 Because ethnic data is not always readily [...] 15-29 5 Kidney failure <15 (or dialysis) 21 Desirable <150 Borderline high 150-199 High 200-499 Very High >500 22 Desirable <200 Borderline high 200-239 High >239 23 Low <40 Desirable: 40-60 High: >60 24 Desirable: <100 mg/dL Near Optimal: 100-129 mg/dL Borderline High: 130-159 mg/dL High: 160-189 mg/dL Very High: >189 mg/dL 25 FASTING 10 HOUR 26 Because ethnic data is not always readily [...] dialysis) Procedures Date CPT Code Description Status 09/11/2017 75141 ECHO Transthorasic Realtime 2D W Doppler & Color Completed Flow Hosp 07/28/2017 Mammogram Completed 05/31/2016 Mammogram Completed Encounters Type Date Location Provider CPT E/M Dx Office Visit 09/18/2017 9:00a [facility] [place] [address] F10.10 Rebekah E83.42 R55 E87.1 Z13.220 Office Visit 09/10/2017 7:50a [facility] Christianne Rivera, [address] E87.1 Assoc,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 I10 F10.10 Office Visit 08/15/2017 10:40a [facility] [place] [address] I10 Rebekah J01.90 F32.89 Office Visit 07/04/2017 9:00a [facility] Sergio Russell, JUNIE [address] I10 [place] R68.84 Office Visit 05/02/2017 1:40p [facility] [place] [address] I10 [place] Z12.31 R94.5 F10.20 M54.5 R22.1 Office Visit 02/12/2017 9:20a [facility] [place] [address] F10.20 [place] I10 M79.675 D48.5 Office Visit 12/02/2016 11:40a [facility] [place] [address] I10 [place] F10.20 D48.5 Office Visit 10/01/2016 9:40a [facility] [place] [address] R50.9 [place] Office Visit 09/27/2016 9:40a [facility] [place] [address] Z01.818 [place] H26.9 I10 E87.1 E83.42 F10.20 Office Visit 07/17/2016 9:20a [facility] [place] [address] I10 [place] F10.20 E87.1 L65.8 F41.9 Office Visit 06/26/2016 9:20a [facility] [place] [address] I10 [place] F10.20 F41.9 E83.42 K21.9 Office Visit 05/08/2016 3:00p [facility] [place] [address] I10 [place] F10.20 Office Visit 10/15/2015 9:35a [facility], [address] F10.230 jurgen Chapman M.D. Office Visit 10/14/2015 9:34a [facility] [address] F10.230 [facility] M.[facility] Plan of Care 11/25/2017 - Sergio Russell NPF10.10 Alcohol abuse, uncomplicatedComments:As we have discussed, it is very important that you refrain from alcohol. I would recommend that yougo to the ER for detoxifiction. You can also consider [facility] Inpatient Detox[facility]. The contact information is: [address] [place], [place] [address]Osszajpnk: [phone] Try to find a size 10 blood pressure cuff (19-27cm) from [employer].F33.0 Major depressive disorder, recurrent, mildReferral:Francisco Thomas, PAN OPERATOR, Clinical/Social DhofwaJ35.4 Encounter for screening for human immunodeficiency virus
--- NOTE | 2017-11-29 21:03 | ED ---
Jae Allen Tiffany, scribed for Celi Benoit MD on 11/29/17 at 1545 . Substance Abuse/Use - HPI Summary HPI Summary: The patient is a 52 year old female presenting to [facility] accompanied by significant other, Abdullahi, of 1.5 months complains of alcohol intoxication, requesting alcohol detox. Pt resolved to come for this one hour ago per nurse, after learning of a tenant that has just become sober, and she is despondent because she "can't even go 4 hours" without drinking. Symptoms aggravated by nothing. Symptoms alleviated by nothing. Patient reports weakness, nausea. Thinks she might vomit during this evaluation. Denies vomiting prior to admission. Denies suicidal and homicidal ideation. Denies past history of suicidal ideation, reports no suicidal attempts or inpatient psychiatric care. Has history of alcoholism for 30 years. Denies prior hx of alcohol rehab. Patient's significant other says that patient drinks large amounts of alcohol every 4 hours, ranging from a couple of glasses of wine to a bottle of vodka. He states he has found empty bottles of vodka and champagne around the house after he has been away from her and returns. Patient was in [facility] [place] for "self-medicating with too much Ativan" per pt. Last Ativan taken was two days ago. Review of this record shows pt had syncopal episode and underwent WAM protocol for alcoholism. Patient reports that she had blood work done two days ago by MARIBEL Jimenez, which showed that AST and ALT levels were elevated, and GGT was 267 (elevated). Pt wants to give elaborate detail about her sister's scoliosis and surgeries, and rods in her back, wants to give details of her intimate relationship with her new SO, and states they both got HIV tests that are negative. Pt wants to give details of her TB even though it was 32 years ago and is considered treated without relapse. Pt talks about care in [facility], prior admission to [facility]. Pt has to be redirected multiple times to answer questions related to this presentation. Per charge nurse, pt was loud, yelling at receptionist secretary, and throwing things upon presentation to the ED. The charge nurse spoke with pt and her SO about this and the pt remained calm and cooperative during this history and physical. Pt's SO appeared to be sober and with steady gait. - History Of Current Complaint Chief Complaint: EDSubstanceAbuse Stated Complaint: DETOX/ABNORMAL LABS Time Seen by Provider: 11/29/17 15:13 Hx Obtained From: Patient, Other: - Significant other, Abdullahi, of 1.5 months Hx Last Menstrual Period: post menopausal Onset/Duration of Drug/ETOH Abuse: Years - 30 years Ingestion History: Type/Name Of Drug - alcohol, Amount Ingested - unknown, Approximate Time Of Ingestion - today and every 4 hours Timing Of Abuse: Daily Severity Initially: Moderate Severity Currently: Moderate Character: Frustrated Aggravating Factor(s): Nothing Alleviating Factor(s): Nothing - reports weakness, nausea, thinks she might vomit Associated Signs And Symptoms: Negative - vomiting, suicidal ideation, homicidal ideation, Other: - recent abnormal liver function tests - Allergies/Home Medications Allergies/Adverse Reactions: Allergies Allergy/AdvReac Type Severity Reaction Status Date / Time acetaminophen [From Tylenol] Allergy See Comment Verified 12/01/17 21:00 Penicillins Allergy Rash Verified 12/01/17 21:00 PMH/Surg Hx/FS Hx/Imm Hx Previously Healthy: No Endocrine/Hematology History: Reports: Hx Anemia, Other Endocrine/Hematological Disorders - Hemangioma Denies: Hx Diabetes, Hx Thyroid Disease Cardiovascular History: Reports: Hx Hypertension, Other Cardiovascular Problems/ Disorders - Mitral valve prolapse Denies: Hx Aneurysm, Hx Congestive Heart Failure, Hx Deep Vein Thrombosis, Hx Myocardial Infarction, Hx Pacemaker/ICD, Hx Syncope Respiratory History: Reports: Hx Pleural Effusion, Other Respiratory Problems/ Disorders - TB Denies: Hx Asthma, Hx Chronic Obstructive Pulmonary Disease (COPD), Hx Lung Cancer, Hx Pneumonia, Hx Pulmonary Embolism GI History: Reports: Hx Gastroesophageal Reflux Disease Denies: Hx Gall Bladder Disease, Hx Gastrointestinal Bleed, Hx Ulcer, Hx Urosepsis History: Denies: Hx Acute Renal Failure, Hx Kidney Stones, Hx Renal Disease Musculoskeletal History: Reports: Hx Scoliosis Denies: Hx Gout Sensory History: Reports: Hx Contacts or Glasses Denies: Hx Cataracts, Hx Eye Injury, Hx Eye Prosthesis, Hx Glaucoma, Hx Legally Blind, Hx Macular Degeneration, Hx Vision Problem, Hx Deafness, Hx Hearing Aid, Hx Hearing Problem, Other Sensory Impairments Opthamlomology History: Reports: Hx Contacts or Glasses Denies: Hx Cataracts, Hx Eye Injury, Hx Eye Prosthesis, Hx Glaucoma, Hx Legally Blind, Hx Macular Degeneration, Hx Vision Problem, Other Sensory Impairments Neurological History: Reports: Hx Migraine Denies: Hx CVA, Hx Dementia, Hx Seizures, Hx Transient Ischemic Attacks (TIA) Psychiatric History: Reports: Hx Anxiety, Hx Eating Disorder - Anorexia and Bulimia, Hx Substance Abuse - alcoholic Denies: Hx Depression, Hx Schizophrenia, Hx Bipolar Disorder, Hx Suicide Attempt - Cancer History Cancer Type, Location and Year: Basel cell carcinoma removed from L chest - Surgical History Surgery Procedure, Year, and Place: liposuction 2013, lung surgery 2001, breast reduction age 20, removal of basal cell carcinoma removed from L chest Infectious Disease History: No Infectious Disease History: Reports: 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36; treated for 6 months; 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 Denies: Hx Clostridium Difficile, Hx Hepatitis, Hx Human Immunodeficiency Virus (HIV), Hx of Known/Suspected MRSA, Hx Shingles, Hx Known/Suspected VRE, Hx Known/Suspected VRSA, History Other Infectious Disease, Traveled Outside the [place] in Last 30 Days - Family History Known Family History: Positive: Other - Sister has scoliosis Negative: Cardiac Disease, Hypertension, Diabetes - Social History Alcohol Use: Daily Alcohol Amount: very large quantities, has history of alcoholism Hx Substance Use: No Substance Use Type: Reports: None Substance Use Comment - Amount & Last Used: today Hx Tobacco Use: No Smoking Status (MU): Never Smoked Tobacco Review of Systems Positive: Other - alcohol intoxication, requesting alcohol detox Cardiovascular: Negative Respiratory: Negative Positive: Nausea, Other - Thinks she might vomit but hasn't yet. Negative: Vomiting Genitourinary: Negative Skin: Negative Positive: Weakness - generalized Positive: Other - NEGATIVE: suicidal ideation or homicidal ideation All Other Systems Reviewed And Are Negative: Yes Physical Exam - Summary Physical Exam Summary: Appearance: Patient is disheveled, in no pain, talkative, rambling speech, faint odor similar to alcohol , hypertensive Skin: Warm, color reflects adequate perfusion Head: Normal Head/Face inspection, no sign of trauma Eyes: Conjunctiva clear ENT: Normal inspection Neck: Supple, no nodes, no JVD. Respiratory: Lungs clear, Normal breath sounds, no respiratory distress Cardio: RRR, No murmur, pulses normal, brisk capillary refill Abdomen: soft, nontender, no masses Bowel sounds: present Musculoskeletal: prominent scoliosis, strength Intact/ ROM intact. No calf tenderness. No edema. Psychological: states she is intoxicated, cooperative with exam Neuro: Alert O x 3, speech is clear, muscle tone normal, moves all extremities well, facial symmetry, no focal deficit, no tremulousness Triage Information Reviewed: Yes Vital Signs On Initial Exam: Initial Vitals Temp Pulse Resp BP Pulse Ox 96.7 F 67 14 151/99 98 11/29/17 15:02 11/29/17 15:02 11/29/17 15:02 11/29/17 15:02 11/29/17 15:02 Vital Signs Reviewed: Yes Diagnostics - Vital Signs Vital Signs Temp Pulse Resp BP Pulse Ox 11/29/17 15:02 96.7 F 67 14 151/99 98 - Laboratory Lab Statement: Any lab studies that have been ordered have been reviewed, and results considered in the medical decision making process. Course/Dx - Course Course Of Treatment: Patient allergies and medications reviewed this visit. Patient left AMA before labs were collected and without notifying ED provider. Per ED nursing note from nurse Walsh, patient became "feisty" with phlebotomy despite being advised by me during her initial evaluation that she was going to have blood work and a "banana bag" IV. Patient started to get dressed even though nurse Jillian attempted to redirect patient. Significant other states that he has been trying to get patient to come in for weeks, was upset that patient was leaving, tried to get patient to stay, apologized for patient's behavior. Patient refused to wait for ED provider while provider was in room with another patient. Patient left AMA. Provider made aware after patient had alreadty left the department. Per discussion with MICHAELA Walsh, pt wanted a lab test added on. I suspect that this was GGT, even though I had told pt in her initial evaluation that she knew her GGT was elevated based on labwork from Sergio Russell, indicating that she had liver disease, and that GGT is not considered an emergency test, so it would not be ordered as part of this evaluation. Pt's SO witnessed this discussion and her entire evaluation by me. - Diagnoses Differential Diagnosis/HQI/PQRI: Positive: Alcohol Abuse, Alcohol Withdrawal, Anxiety, Bipolar Disorder Provider Diagnoses: Acute alcohol dependence syndrome, Left against medical advice, Hypertension, poor control Discharge - Sign-Out/Discharge Documenting (check all that apply): Discharge - Discharge Plan Condition: Guarded Disposition: AGAINST MEDICAL ADVICE Referrals: Sergio Russell NP [Primary Care Provider] - - Billing Disposition and Condition Condition: GUARDED Disposition: AMA The documentation as recorded by the Jae sanford Tiffany accurately reflects the service I personally performed and the decisions made by , Celi Benoit MD.
== END 2017-11-29 16:32 | disposition left against medical advice (07) ==
LOC: ED 14:48
DX: F10.129 Alcohol abuse with intoxication, unspecified (principal); R11.0 Nausea; Z86.79 Personal history of other diseases of the circulatory system; Z53.21 Procedure and treatment not carried out due to patient leaving prior to being seen by health care provider
CPT/HCPCS: 99282; J3411

== ENCOUNTER 2017-11-30 04:14 | Emergency (ER) | payer MEDICARE ==
[2017-11-30] MEDS ORDERED: Ondansetron INJ* 2 MG/ML VIAL IV ONE ×2 (04:40→10:24)
[2017-11-30] MEDS ORDERED: Thiamine IV* 100 MG/ML 2 ML VIAL IV ONE (04:40)
[2017-11-30] MEDS ORDERED: Multivitamins/Minerals TAB PO ONE (04:40)
[2017-11-30] MEDS ORDERED: Famotidine TAB* 20 MG PO ONE (04:41)
[2017-11-30 05:03] LABS: ABS Basophils 0 10^3/ul (0-0.2); ABS Eosinophils 0 10^3/ul (0-0.6); ABS Lymphocytes 2.2 10^3/ul (1.0-4.8); ABS Monocytes 0.5 10^3/ul (0-0.8); ABS Neutrophils 2.3 10^3/ul (1.5-7.7); ABS Nucleated RBC 0 10^3/ul; Eosinophil % 0.9 % (0-6); Hematocrit 39 % (35-47); Hemoglobin 13.4 g/dl (12.0-16.0); Lymphocyte % 43.1 % (25-47); Mean Corpuscular HGB Conc 35 g/dl (31-36); Mean Corpuscular Hemoglobin 34 pg (27-31); Mean Corpuscular Volume 99 fL (80-97); Mean Platelet Volume 6.5 um3 (7.4-10.4); Nucleated Red Blood Cells % 0.1; Platelet Count 164 10^3/ul (150-450); Red Cell Distribution Width 14 % (10.5-15); White Blood Count 5.1 10^3/ul (3.5-10.8)
[2017-11-30 05:15] LABS: INR 0.82 (0.77-1.02)
[2017-11-30 05:18] LABS: EGFR Non-African American 105.8 (>60)
[2017-11-30] MEDS ORDERED: LORazepam INJ* 2 MG/ML 1 ML VIAL IV PUSH ONE (05:30)
--- NOTE | 2017-11-30 06:55 | ED ---
Donna Allen Emily, scribed for Michele Haddad MD on 11/30/17 at 0431 . 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 The patient rates the pain 0/10 in severity. Symptoms aggravated by nothing. Symptoms alleviated by nothing. Patient reports vomiting, nausea, and feeling shaky, and abd pain (chronic). Patient denies CP and dyspnea. Pt left AMA at 1600 yesterday for ETOH withdrawal. Pt reports calling EMS for the same symptoms as yesterday. Pt reports drinking 6 ounces of vodka and 12 ounces of champagne since leaving [facility]. Pt reports being a vodka drinker, and goes through approximately half a 750 mL bottle of vodka a day. Pt reports that she has to drink ETOH every four hours in order to avoid withdrawal symptoms. Pt reports her last ingestion of alcohol at 0100. - History Of Current Complaint Stated Complaint: ETOH Hx Obtained From: Patient Hx Last Menstrual Period: post menopausal Onset/Duration of Drug/ETOH Abuse: Years Ingestion History: Type/Name Of Drug - ETOH, Amount Ingested - Half of a 750 mL bottle of vodka a day Overdose Characteristics: Oral Timing Of Abuse: Daily Severity Initially: Mild Severity Currently: Mild Aggravating Factor(s): Nothing Alleviating Factor(s): Nothing Associated Signs And Symptoms: Nausea, Vomiting, Other: - Positive abd pain and "feeling shaky". Negative dyspnea and CP - Allergies/Home Medications Allergies/Adverse Reactions: Allergies Allergy/AdvReac Type Severity Reaction Status Date / Time acetaminophen [From Tylenol] Allergy See Comment Verified 11/29/17 15:02 Penicillins Allergy Rash Verified 11/29/17 15:02 PMH/Surg Hx/FS Hx/Imm Hx Previously Healthy: No Endocrine/Hematology History: Reports: Hx Anemia, Other Endocrine/Hematological Disorders - Hemangioma Denies: Hx Diabetes, Hx Thyroid Disease Cardiovascular History: Reports: Hx Hypertension, Other Cardiovascular Problems/ Disorders - Mitral valve prolapse Denies: Hx Aneurysm, Hx Congestive Heart Failure, Hx Deep Vein Thrombosis, Hx Myocardial Infarction, Hx Pacemaker/ICD, Hx Syncope Respiratory History: Reports: Hx Pleural Effusion, Other Respiratory Problems/ Disorders - TB Denies: Hx Asthma, Hx Chronic Obstructive Pulmonary Disease (COPD), Hx Lung Cancer, Hx Pneumonia, Hx Pulmonary Embolism GI History: Reports: Hx Gastroesophageal Reflux Disease Denies: Hx Gall Bladder Disease, Hx Gastrointestinal Bleed, Hx Ulcer, Hx Urosepsis History: Denies: Hx Acute Renal Failure, Hx Kidney Stones, Hx Renal Disease Musculoskeletal History: Reports: Hx Scoliosis Denies: Hx Gout Sensory History: Reports: Hx Contacts or Glasses Denies: Hx Cataracts, Hx Eye Injury, Hx Eye Prosthesis, Hx Glaucoma, Hx Legally Blind, Hx Macular Degeneration, Hx Vision Problem, Hx Deafness, Hx Hearing Aid, Hx Hearing Problem, Other Sensory Impairments Opthamlomology History: Reports: Hx Contacts or Glasses Denies: Hx Cataracts, Hx Eye Injury, Hx Eye Prosthesis, Hx Glaucoma, Hx Legally Blind, Hx Macular Degeneration, Hx Vision Problem, Other Sensory Impairments Neurological History: Reports: Hx Migraine Denies: Hx CVA, Hx Dementia, Hx Seizures, Hx Transient Ischemic Attacks (TIA) Psychiatric History: Reports: Hx Anxiety, Hx Eating Disorder - Anorexia and Bulimia, Hx Substance Abuse - alcoholic Denies: Hx Depression, Hx Schizophrenia, Hx Bipolar Disorder, Hx Suicide Attempt - Cancer History Cancer Type, Location and Year: Basel cell carcinoma removed from L chest - Surgical History Surgery Procedure, Year, and Place: liposuction 2013, lung surgery 2001, breast reduction age 20, removal of basal cell carcinoma removed from L chest Infectious Disease History: Yes Infectious Disease History: Reports: 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36; treatedfor 6 months; 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 Denies: Hx Clostridium Difficile, Hx Hepatitis, Hx Human Immunodeficiency Virus (HIV), Hx of Known/Suspected MRSA, Hx Shingles, Hx Known/Suspected VRE, Hx Known/Suspected VRSA, History Other Infectious Disease, Traveled Outside the [place] in Last 30 Days - Family History Known Family History: Positive: Unknown, Other - Sister has scoliosis Negative: Cardiac Disease, Hypertension, Diabetes - Social History Occupation: Unemployed Lives: Alone Alcohol Use: Daily Alcohol Amount: very large quantities, has history of alcoholism Hx Substance Use: No Substance Use Type: Reports: None Substance Use Comment - Amount & Last Used: today Hx Tobacco Use: No Smoking Status (MU): Never Smoked Tobacco Review of Systems Positive: Other - Positive "feeling shaky" Negative: Chest Pain Positive: Other - Negative dyspnea Positive: Abdominal Pain, Vomiting, Nausea Negative: Rash All Other Systems Reviewed And Are Negative: Yes Physical Exam - Summary Physical Exam Summary: Appearance: Well appearing, no pain distress, smells slightly of ETOH Skin: warm, dry, reflects adequate perfusion Head/face: normal Eyes: EOMI, SAFIA ENT: normal Neck: supple, non-tender Respiratory: CTA, breath sounds present Cardiovascular: RRR, pulses symmetrical Abdomen: non-tender, soft Bowel Sounds: present Musculoskeletal: normal, strength/ROM intact Neuro: normal, sensory motor intact, A&Ox3 Triage Information Reviewed: Yes Vital Signs On Initial Exam: Initial Vitals Temp Pulse Resp BP Pulse Ox 97.5 F 79 12 150/99 97 11/30/17 04:23 11/30/17 04:23 11/30/17 04:23 11/30/17 04:23 11/30/17 04:23 Vital Signs Reviewed: Yes Diagnostics - Vital Signs Vital Signs Temp Pulse Resp BP Pulse Ox 11/30/17 04:23 97.5 F 79 12 150/99 97 - Laboratory Lab Results: Lab Results 11/30/17 11/30/17 11/30/17 Range/Units 04:51 04:51 04:51 WBC 5.1 (3.5-10.8) 10^3/ul RBC 3.90 L (4.0-5.4) 10^6/ul Hgb 13.4 (12.0-16.0) g/dl Hct 39 (35-47) % MCV 99 H (80-97) fL MCH 34 H (27-31) pg MCHC 35 (31-36) g/dl RDW 14 (10.5-15) % Plt Count 164 (150-450) 10^3/ul MPV 6.5 L (7.4-10.4) um3 Neut % (Auto) 45.9 (38-83) % Lymph % (Auto) 43.1 (25-47) % [place] % (Auto) 9.1 H (0-7) % Eos % (Auto) 0.9 (0-6) % Baso % (Auto) 1.0 (0-2) % Absolute Neuts (auto) 2.3 (1.5-7.7) 10^3/ul Absolute Lymphs (auto) 2.2 (1.0-4.8) 10^3/ul Absolute Monos (auto) 0.5 (0-0.8) 10^3/ul Absolute Eos (auto) 0 (0-0.6) 10^3/ul Absolute Basos (auto) 0 (0-0.2) 10^3/ul Absolute Nucleated RBC 0 10^3/ul Nucleated RBC % 0.1 INR (Anticoag Therapy) 0.82 (0.77-1.02) APTT 28.8 (26.0-36.3) seconds Sodium 141 (139-145) mmol/L Potassium 3.8 (3.5-5.0) mmol/L Chloride 100 L (101-111) mmol/L Carbon Dioxide 28 (22-32) mmol/L Anion Gap 13 H (2-11) mmol/L BUN 9 (6-24) mg/dL Creatinine 0.60 (0.51-0.95) mg/dL Est GFR ( Amer) 136.1 (>60) Est GFR (Non-Af Amer) 105.8 (>60) BUN/Creatinine Ratio 15.0 (8-20) Glucose 111 H (70-100) mg/dL Calcium 9.1 (8.6-10.3) mg/dL Total Bilirubin 0.30 (0.2-1.0) mg/dL GGT 321 H (9-64.0) U/L AST 41 H (13-39) U/L ALT 20 (7-52) U/L Alkaline Phosphatase 66 (34-104) U/L Total Protein 7.6 (6.4-8.9) g/dL Albumin 4.2 (3.2-5.2) g/dL Globulin 3.4 (2-4) g/dL Albumin/Globulin Ratio 1.2 (1-3) Serum Alcohol 394 H (<10) mg/dL Result Diagrams: 11/30/17 04:51 11/30/17 04:51 Lab Statement: Any lab studies that have been ordered have been reviewed, and results considered in the medical decision making process. - EKG 0459 Cardiac Rate: NL EKG Rhythm: Sinus Rhythm - [address] Segment: Normal EKG Interpretation: Normal axis and intervals Re-Evaluation - Re-Evaluation First Eval Re-Evaluation Time: 05:30 Change: Worse Comment: Pt with extreme anxiety, tremor, hyperventilation. We will administer ativan for alcohol withdrawal. Course/Dx - Course Course Of Treatment: 2nd visit in 24hrs. Pt smells of ETOH but thinks she is going into withdrawl. Anxiety rxn here with significant distress requiring Ativan. ETOH nearly 400 -- proving this is not withdrawl. She likely will withdrawl. She will require observation until sobering and re-eval in terms of pt's wishes for detox/rehab. Would require admission if in withdrawl. - Diagnoses Differential Diagnosis/HQI/PQRI: Positive: Acute Psychosis, Alcohol Abuse, Alcohol Withdrawal Provider Diagnoses: Alcohol intoxication, Alcoholism, Anxiety Discharge - Sign-Out/Discharge Documenting (check all that apply): Sign-Out Patient Signing out patient TO: Yuriy Casey - Pending pt sobering - Discharge Plan Condition: Stable Discharge Disposition Comment: sobering with high ETOH Referrals: Sergio Russell NP [Primary Care Provider] - - Billing Disposition and Condition Condition: STABLE The documentation as recorded by the Donna sanford Emily accurately reflects the service I personally performed and the decisions made by me, Michele Haddad MD.
[2017-11-30] MEDS ORDERED: Ondansetron INJ* 2 MG/ML VIAL ONE (10:25)
[2017-11-30] MEDS ORDERED: PROCHLORPERAZINE INJ 5 MG/ML 2 ML VIAL IV ONE (14:19)
[2017-11-30 16:05] VITALS: BP 149/98
--- NOTE | 2017-11-30 16:29 | ED ---
Ryland Allen Gabriel, scribed for Yuriy Casey MD on 11/30/17 at 0913 . Progress - Progress Note Progress Note: This patient was signed out from Dr. Haddad, pending disposition, awaiting detox. The patients condition is stable and will be discharged to home with Dx of alcohol intoxication . Re-Evaluation - Re-Evaluation First Eval Re-Evaluation Time: 05:30 Change: Worse Comment: Pt with extreme anxiety, tremor, hyperventilation. We will administer ativan for alcohol withdrawal. Second Eval Re-Evaluation Time: 09:12 Change: Unchanged - The patient is lying comfortably in the stretcher asleep, vital signs are stable. Third Eval Re-Evaluation Time: 10:58 Change: Worse Comment: Pt began vomiting, zofran will be given. Course/Dx - Course Course Of Treatment: This patient was signed out from Dr. Haddad, pending disposition, awaiting detox. The patients condition is stable and will be discharged to home with Dx of alcohol intoxication. I discussed the case with Dr. Cheney who came and evaluated the patient. She discussed discharge with the patient and discussed using Ativan to control withdrawal symptoms. The patient and her agree and understand. I discussed all the findings and test results with the patient. Patient was instructed to return to the emergency room immediately if any of the symptoms return or worsens. Plan of care was discussed with the patient and understands and agrees. All questions were answered at patient satisfaction. There were no further complaints or concerns. Lung exam before discharge: CTA B/L. Good air exchange. No wheezing or crackles heard. CVS: S1 and S2 present. No murmurs appreciated. Patient is alert and oriented x 3. Patient is hemodynamically stable. Patient will be discharged home with follow up PCP in the next 2-3 days - Diagnoses Provider Diagnoses: Alcohol intoxication Discharge - Sign-Out/Discharge Documenting (check all that apply): Discharge - Discharge Plan Condition: Stable Disposition: HOME Prescriptions: LORazepam TAB(*) [Ativan 0.5 MG TAB (*)] 0.5 mg PO Q8H PRN #12 tab MDD 3 PRN Reason: Agitation Patient Education Materials: Alcohol Intoxication (ED) Referrals: Sergio Russell RETAIL OPERATIONS SPECIALIST [Primary Care Provider] - 3 Days Additional Instructions: RETURN TO THE EMERGENCY DEPARTMENT FOR CHANGING OR WORSENING SYMPTOMS. - Billing Disposition and Condition Condition: STABLE Disposition: HOME The documentation as recorded by the Ryland sanford Gabriel accurately reflects the service I personally performed and the decisions made by me, Yuriy Casey MD.
--- NOTE | 2017-12-01 01:38 | CONS ---
CONSULTATION REPORT: DATE OF CONSULT: 11/30/17 TIME OF CONSULTATION: 4 p.m. CHIEF COMPLAINT: Nausea and vomiting. HISTORY OF PRESENT ILLNESS: This is a 52-year-old female with history of alcohol abuse, who came to the emergency department early this morning with nausea and vomiting. Her last drink was last evening around 7 p.m. and she says she wakes up daily at 3 a.m. to have a drink, but this morning she did not and so she came to the emergency department for fear of withdrawing. She was experiencing nausea and vomiting, which was improved with Compazine in the emergency department. She says she drink 1 bottle of wine and 2 shots of liquor per day. She has never experienced a withdrawal seizure and she has never experienced DTs. She is interested in going to rehab and said she has the literature at home from her last hospitalization in September. During her last hospitalization in September, she underwent Ativan taper and WAM protocol and upon discharge, she was able to maintain sobriety. However, returned to drinking shortly after discharge. She has been drinking a bottle of wine and 2 shots of vodka for several years with short periods of sobriety intermittently. She is accompanied today by her friend, Abdullahi, who was supportive of her desire for sobriety. She does have Ativan at home for anxiety; however, she was hesitant to take it this morning when she began to fear withdrawal. PAST MEDICAL HISTORY: 1. Depression. 2. Alcohol abuse. 3. Mitral valve prolapse. 4. Hypertension. 5. Migraines. 6. Anorexia/bulimia. 7. Anxiety. REVIEW OF SYSTEMS: She denies hallucinations, headache, diaphoresis, chills. She does note some shakiness. She denies diarrhea. She complains of nausea and vomiting. PHYSICAL EXAM: Temperature 98.4, heart rate 97, respiratory rate 16, pulse ox 95% on room air, and blood pressure 149/98. General: Alert, well appearing female, in no distress. HEENT: Pupils are 4 mm bilaterally and reactive to light. Tongue has no fasciculations. Mucosa is moist. No pharyngeal exudates or erythema. No mucosal lesions. Neck: No JVP. No cervical lymphadenopathy. No supraclavicular lymphadenopathy. Chest: Regular rate and rhythm, 2/6 systolic murmur at the left upper sternal border. PMI is nondisplaced. Lungs are clear bilaterally. Abdomen: Soft, nontender, nondistended. Liver is nonpalpable. No guarding or rebound. Negative Bergman sign. Neurologic: Strength is 5+ through-out. Sensation is intact. She has an intention tremor that resolves at rest. Her coordination is intact. Her proprioception is intact. Her judgment is sound. She has no visual or auditory hallucinations. DIAGNOSTIC STUDIES/LAB DATA: Sodium 141, potassium 3.8, chloride 100, bicarb 28 , BUN 9, creatinine 0.6, glucose 111. AST 41, ALT 20. INR 0.8. White blood cell 5.1, hemoglobin 13.4, platelets 164. EKG: Normal sinus rhythm at 72. Normal axis. Normal intervals. No ST or T- wave changes, isolated Q wave in lead III. ASSESSMENT AND PLAN: This is a 52-year-old female with history of alcohol abuse , who presents with nausea and vomiting and concern for withdrawal. Ms. Samson has no autonomic signs of alcohol withdrawal at this time. She is very anxious and nervous about the possibility of withdrawing. However, she does not show any signs of withdrawal at this time. She has used Ativan taper for withdrawal in the past and I discussed the possibility of using Ativan or an alternative like Librium as an outpatient and following up closely with an outpatient rehab center, which is very interested in. She and her friend, Abdullahi , are agreeable to this plan. I discussed the case with Dr. Casey and he agrees to discharge her with Ativan or Librium. She was instructed to come back to the emergency department if she does experience any withdrawal symptoms. Thank you for allowing us to participate in the care of this patient. Please feel free to call us back with any further questions or concerns. [id number]/[facility] #: [id number] [facility]ITALDamon
== END 2017-11-30 16:25 | disposition home or self-care (01) ==
LOC: ED 04:14
DX: F10.229 Alcohol dependence with intoxication, unspecified (principal); Y90.8 Blood alcohol level of 240 mg/100 ml or more; R11.2 Nausea with vomiting, unspecified; F41.9 Anxiety disorder, unspecified; I10 Essential (primary) hypertension; I34.1 Nonrheumatic mitral (valve) prolapse; Z86.11 Personal history of tuberculosis; K21.9 Gastro-esophageal reflux disease without esophagitis; M41.9 Scoliosis, unspecified; G43.909 Migraine, unspecified, not intractable, without status migrainosus; Z88.6 Allergy status to analgesic agent; Z88.0 Allergy status to penicillin
CPT/HCPCS: 36415; 80053; 80320; 82977; 85025; 85610; 85730; 93005; 96374; 96375; 96376; 99285; A9270-GY; G0480; J0780; J2060; J2405; J3411

== ENCOUNTER 2018-02-02 15:30 | Inpatient (IN) | payer MEDICARE ==
[2018-02-02] MEDS ORDERED: Metoclopramide IV* 5 MG/ML 2 ML VIAL IV ONE (15:51)
--- OUTSIDE RECORDS SUMMARY | 2018-02-02 15:56 | XMS REPORT ---
:1965 External Reference #:[id number] Author Organization [employer] Address [address] [address] Phone [phone] Care Team Providers Name Role Phone Germaine Sheppard MD Primary Care Physician Unavailable Payers Type Date Identification Numbers Payment Provider Subscriber Medicare Primary Policy Number: [id number] Medicare Dinh Samson PayID: [id number] [facility] [address] [place] [address] Problems Date Description Provider Status Onset: 05/12/2016 [...] alcohol States she drinks excessively, all day. Goes through alcohol withdrawal if she does not drink for 5 hours Smoking Patient has never smoked Recreational Drug Use Current Drug User Marijuana Daily Caffeine Does Not Consume Caffeine Exercise Type/Frequency Exercises rarely Allergies, Adverse Reactions, Alerts Date Description Reaction Status Severity Comments 05/08/2016 Penicillin active rash Medications Medication Date Status Form Strength Qnty SIG Indications Ordering Provider Ondansetron 01/30 Active Tablets 4mg 45tab 1 by mouth R11.0 Germaine Dispers s every 8 h as Cotton, needed nausea M.D. Desvenlafaxine 01/09 Active Tablets 100mg 30tab 1 by mouth Sergio Succinate ER /2017 ER 24HR s every morning JUNIE Russell Ativan 12/15 Active Tablets 1mg 30tab 1/2-1 tab by Sergio s mouth twice JUNIE Russell daily as needed Bystolic 05/02 Active Tablets 10mg 30tab 1 tablet by I10 Sergio s mouth daily JUNIE Russell Folic Acid 07/17 Active Tablets 1mg 60tab take 1 tablet F10.20 Sergio s by mouth in JUNIE Russell the morning Ra Vitamin B-1 07/17 Active Tablets 100mg 90tab 1 by mouth F10.20 Sergio s every day JUNIE Russell Blood Pressure 06/26 Active Misc 1unit check bp I10 Sergio Monitor s twice weekly JUNIE Russell Inflate Small at home Cuff Omeprazole 06/26 Active Capsules 20mg 90cap 1 by mouth K21.[address] s once daily in JUNIE Russell evening Ranitidine HCL 06/26 Active Tablets 150mg 180ta one tablet K21.9 bs once daily in JUNIE Russell Am B Complex Active Capsules 1 by mouth Unknown /0000 every day Multi For Her Active Capsules once a day Unknown /0000 otc Clindamycin HCL 08/18 Hx Capsules 150mg Sergio JUNIE Russell - 08/18 Levofloxacin 08/18 Hx Tablets 500mg 10tab one by mouth s daily for 10 JUNIE Russell - days 08/28 Bystolic 04/22 Hx Tablets 5mg 90tab 1 by mouth I10 Sergio s every day JUNIE Russell - 05/02 Ciprofloxacin 10/03 Hx Tablets 250mg 14tab take one Sergio HCL /2016 s tablet twice JUNIE Russell - a day for 7 10/03 days. Nitrofurantoin 10/03 Hx Capsules 100mg 14cap take one Sergio Macrocrystal /2016 s capsule twice JUNIE Russell - daily [...] ) Vital Signs Date Vital Result Comment 01/30/2018 Height 62.75 inches 5'2.75" Weight 96.00 lb Heart Rate 87 /min BP Systolic Sitting 112 mmHg BP Diastolic Sitting 88 mmHg O2 % BldC Oximetry 96 % BMI (Body Mass Index) 17.1 kg/m2 01/09/2018 Weight 102.00 lb per pt Heart Rate 85 /min BP Systolic 134 mmHg BP Diastolic 76 mmHg Body Temperature 96.5 F O2 % BldC Oximetry 97 % 11/25/2017 Weight 105.00 lb Heart Rate 83 [...] Test Result H/L Range Note Laboratory test 11/30/2017 Alcohol 156 mg/dL High <10 finding Laboratory test 11/25/2017 HIV 1&2 AB Nonreactive Nonreactive 1 finding Self Referred Liver Function Panel 11/25/2017 Total Protein 7.4 g/dL 6.4-8.9 Albumin 4.2 g/dL 3.2-5.2 Globulin 3.2 g/dL 2-4 Albumin/Globulin Ratio 1.3 1-3 Total Bilirubin 0.70 mg/dL 0.2-1.0 Direct Bilirubin 0.20 mg/dL High 0.03-0.18 Indirect Bilirubin 0.5 mg/dL 0.3-1.0 Alkaline Phosphatase 69 U/L 34-104 Alt 21 U/L 7-52 Ast 50 U/L High 13-39 Basic Metabolic Panel 11/25/2017 Sodium 132 mmol/L Low 139-145 Potassium 3.6 mmol/L 3.5-5.0 Chloride 92 mmol/L Low 101-111 Co2 Carbon Dioxide 30 mmol/L 22-32 Anion Gap 10 mmol/L 2-11 Glucose 116 mg/dL High 70-100 Blood Urea Nitrogen 5 mg/dL Low 6-24 Creatinine 0.56 mg/dL 0.51-0.95 BUN/Creatinine Ratio 8.9 8-20 Calcium 9.2 mg/dL 8.6-10.3 Egfr Non- 114.6 >60 Egfr 147.4 >60 2 CBC Auto Diff 11/25/2017 White Blood Count 3.0 10^3/uL Low 3.5-10.8 Red Blood Count 3.67 10^6/uL Low 4.0-5.4 Hemoglobin 12.6 g/dL 12.0-16.0 Hematocrit 36 % 35-47 Mean Corpuscular Volume 98 fL High 80-97 Mean Corpuscular Hemoglobin 34 pg High 27-31 Mean Corpuscular HGB Conc 35 g/dL 31-36 Red Cell Distribution Width 14 % 10.5-15 Platelet Count 126 10^3/uL Low 150-450 Mean Platelet Volume 7.2 um3 Low 7.4-10.4 Abs Neutrophils 1.6 10^3/uL 1.5-7.7 Abs Lymphocytes 1.0 10^3/uL 1.0-4.8 Abs Monocytes 0.3 10^3/uL 0-0.8 Abs Eosinophils 0 10^3/uL 0-0.6 Abs Basophils 0 10^3/uL 0-0.2 Abs Nucleated RBC 0 10^3/uL Granulocyte % 54.5 % 38-83 Lymphocyte % 31.9 % 25-47 Monocyte % 10.9 % High 0-7 Eosinophil % 1.6 % 0-6 Basophil % 1.1 % 0-2 Nucleated Red Blood Cells % 0.1 Laboratory test finding 11/25/2017 GGTP 273 U/L High 9-64.0 Magnesium 1.7 mg/dL Low 1.9-2.7 Basic Metabolic Panel 09/23/2017 Sodium 131 mmol/L Low 133-145 Potassium 4.7 mmol/L 3.5-5.0 Chloride 95 mmol/L Low 101-111 Co2 Carbon Dioxide 29 mmol/L 22-32 Anion Gap 7 mmol/L 2-11 Glucose 65 mg/dL Low 70-100 Blood Urea Nitrogen 6 mg/dL 6-24 Creatinine 0.59 mg/dL 0.51-0.95 BUN/Creatinine Ratio 10.2 8-20 Calcium 9.8 mg/dL 8.6-10.3 Egfr Non- 107.9 >60 Egfr 138.8 >60 3 Laboratory test finding 09/23/2017 Magnesium 1.7 mg/dL Low 1.9-2.7 Lipid Profile (Trig/Chol/HDL) 09/23/2017 Triglycerides 189 mg/dL 4 Cholesterol 214 mg/dL 5 HDL Cholesterol 72.8 mg/dL 6 LDL Cholesterol 103 mg/dL 7 Laboratory test finding 09/23/2017 Cortisol 13.15 g/dL 8 Laboratory test finding 09/10/2017 Magnesium 1.5 mg/dL Low 1.9-2.7 Lipase 14 U/L 11.0-82.0 Alcohol < 10 mg/dL <10 TSH (Thyroid Stim Horm) 1.17 mcIU/mL 0.34-5.60 Urinalysis Profile 09/10/2017 Urine Color Yellow Urine Appearance Clear Urine Specific [place] 1.005 Low 1.010-1.030 Urine pH 7.0 5-9 Urine Urobilinogen Negative Negative Urine Ketones Negative Negative Urine Protein Negative Negative Urine Leukocytes Negative Negative Urine Blood Negative Negative Urine Nitrite Negative Negative Urine Bilirubin Negative Negative Urine Glucose Negative Negative Urine Drug SCR ED 09/10/2017 Amphetamine Ur Screen None Detected None Detect & Pain [facility] Barbiturates Urine Screen None Detected None Detect Benzodiazepine Urine Screen None Detected None Detect Urine Cannabinoids Screen Presumptive Posi <SEE NOTE> None Detect 9 Urine Cocaine Screen None Detected None Detect Urine Opiates Screen None Detected None Detect Urine Phencyclidine Screen None Detected None Detect 10 Basic Metabolic Panel 09/10/2017 Sodium 124 mmol/L Low 133-145 Potassium 4.1 mmol/L 3.5-5.0 Chloride 94 mmol/L Low 101-111 Co2 Carbon Dioxide 22 mmol/L 22-32 Anion Gap 8 mmol/L 2-11 Glucose 109 mg/dL High 70-100 Blood Urea Nitrogen 7 mg/dL 6-24 Creatinine 0.59 mg/dL 0.51-0.95 BUN/Creatinine Ratio 11.9 8-20 Calcium 8.4 mg/dL Low 8.6-10.3 Egfr Non- 107.9 >60 Egfr 138.8 >60 11 CBC Auto Diff 09/10/2017 White Blood Count [...] 0-2 Nucleated Red Blood Cells % 0.1 Laboratory test finding 09/10/2017 Ammonia 47 ?mol/L 16-53 Lactic Acid 1.4 mmol/L 0.5-2.0 12 Troponin-I (TnI) 0.00 ng/mL <0.04 Comp Metabolic Panel 09/10/2017 Sodium 122 mmol/L [...] Egfr Non- 79.3 >60 Egfr 102.0 >60 13 CBC Auto Diff 08/28/2017 White Blood Count [...] Blood Cells % 0.1 Comp Metabolic Panel 08/28/2017 Sodium 130 mmol/L [...] Egfr Non- 127.6 >60 Egfr 164.2 >60 14 Laboratory test finding 05/29/2017 Magnesium 1.8 mg/dL [...] Egfr Non- 100.0 >60 Egfr 128.6 >60 15 CBC Auto Diff 02/07/2017 White Blood Count [...] Egfr Non- 112.7 >60 Egfr 145.0 >60 16 Laboratory test finding 12/17/2016 Occult Blood - [...] Egfr Non- 86.1 >60 Egfr 110.7 >60 17 Iron & Iron Binding Capacity 10/01/2016 Iron 17 g/dL Low 50-212 Unsaturated Iron Binding 243 g/dL Total Iron Binding Capacity 260 g/dL 250-450 % Iron Saturation 7 % Low 15-55 Laboratory test finding 10/01/2016 Folic Acid (Folate) > 20.00 ng/mL & gt;3.99 Vitamin B12 > 1450 pg/mL High 180-914 18 Ferritin 407.6 ng/mL High 11-307 Urine Culture And 10/01/2016 Urine Culture SEE RESULT BELOW 19 Sensitivities Ua Routine 10/01/2016 Ua Specific [place] 1.015 Ua PH 5 Ua Color yellow [...] Egfr Non- 104.2 >60 Egfr 134.1 >60 20 Laboratory test finding 08/09/2016 TSH (Thyroid Stim Horm) 0.68 mcIU/mL 0.34-5.60 Mercury Blood 8 ng/mL 0-9 21 Basic Metabolic Panel 07/16/2016 Sodium 125 mmol/L Low 133-145 Potassium 4.2 mmol/L 3.5-5.0 Chloride 90 mmol/L Low 101-111 Co2 Carbon Dioxide 28 mmol/L 22-32 Anion Gap 7 mmol/L 2-11 Glucose 80 mg/dL 70-100 Blood Urea Nitrogen 5 mg/dL Low 6-24 Creatinine 0.59 mg/dL 0.51-0.95 BUN/Creatinine Ratio 8.5 8-20 Calcium 9.7 mg/dL 8.6-10.3 Egfr Non- 108.3 >60 Egfr 139.3 >60 22 Laboratory test finding 07/16/2016 Magnesium 1.8 mg/dL Low 1.9-2.7 Lipid Profile (Trig/Chol/HDL) 05/18/2016 Triglycerides 144 mg/dL 23 Cholesterol 240 mg/dL 24 HDL Cholesterol 103.6 mg/dL 25 LDL Cholesterol 108 mg/dL 26 Laboratory test finding 05/18/2016 Magnesium 1.6 mg/dL Low 1.9-2.7 27 Comp Metabolic Panel 05/18/2016 Sodium 130 mmol/L [...] Egfr Non- 100.9 >60 Egfr 129.7 >60 28 CBC Auto Diff 05/18/2016 White Blood Count [...] Nucleated Red Blood Cells % 0 1 It is recognized that currently available assays for the detection of antibodies to HIV-1 and/or HIV-2 may not detect all infected individuals. HIV antibodies may be undetectable in some stages of the infection and in some clinical conditions. The performance of this assay has not been established for populations of infants or children. Assayed by Chemiluminescence Microparticle Immunoassay on the Siemens Advia Centaur CP. Values obtained with different methods or kits cannot be used interchangeably.The diagnostic specificity of the ADVIA Centaur 1/O/2 Enhanced assay in the low risk population was 99.90% (6052/6058) with a 95% confidence interval of 99.78 to 99.96%. 2 Because ethnic data is not always [...] 5 Kidney failure <15 (or dialysis) 4 Desirable: <150 Borderline High: 150-199 High: 200-499 Very High: >500 5 Desirable: <200 Borderline High: 200-239 High: >239 6 Low: <40 Desirable: 40-60 High: >60 7 Desirable: <100 Near Optimal: 100-129 Borderline High: 130-159 High: 160-189 Very High: >189 8 AM 8.7-22.4 PM <10 9 Presumptive Positive Presumptive positive results are unconfirmed. 10 The urine specimen was tested at the listed cutoffs: Drug class test level (ng/mL) Amphetamines 500 Barbiturates 200 Benzodiazepine metabolites 200 Cocaine metabolites 150 Cannabinoids 50 Opiates 300 Pcp 25 Specimen was received without chain of custody. Results should be used for medical purposes only. 11 Because ethnic data is not always readily [...] 15-29 5 Kidney failure <15 (or dialysis) 12 [facility] Severe Sepsis and Septic Shock Management Bundle Measure requires all lactic acids initially measuring >2.0 mmol/L be repeated. 13 Because ethnic data is not always [...] 5 Kidney failure <15 (or dialysis) 16 Because ethnic data is not always readily [...] 15-29 5 Kidney failure <15 (or dialysis) 17 Because ethnic data is not always readily [...] 15-29 5 Kidney failure <15 (or dialysis) 18 Normal Range 180 to 914 Indeterminate Range 145 to 180 Deficient Range <145 19 SEE RESULT BELOW Name: DINH SAMSON : [address]: Sergio Russell [facility] Acct: [id number] Unit: [id number] AGE: 51 Location: [facility] Re10/01/16 SEX: F Status: REG REF SPEC: [id number] FABIANO: 10/01/16-1046 [facility] DR: Sergio Russell NP REQ: [id number] RECD: 10/01/16 STATUS: COMP _ SOURCE: URINE SPDESC: ORDERED: Urine Culture COMMENTS: [id number] Urine Source: Random Procedure Result Reported Site Urine Culture Final 10/03/16- 0741 ML Organism 1 ESCHERICHIA COLI [place] Count >100,000 (Many) CFU/ML 1. ESCHERICHIA COLI [...] antibiotic reporting. * ML - MAIN LAB ([facility]) . END OF REPORT * ML=Testing performed at Main Lab DEPARTMENT OF PATHOLOGY, [address] [place] [address] Mele Corey M.D. Director [facility] # [id number] 20 Because ethnic data is not always [...] 5 Kidney failure <15 (or dialysis) 21 ADDITIONAL INFORMATION This test was developed and its performance characteristics determined by [facility] in a manner consistent with CLIA requirements. This test has not been cleared or approved by the U.S. Food and Drug Administration. Test Performed by: [facility] - [address] [address] [employer] Metal Mixer Operator: Ollie Oliveira II, M.D., Ph.D. 22 Because ethnic data is not always readily [...] 15-29 5 Kidney failure <15 (or dialysis) 23 Desirable <150 Borderline high 150-199 High 200-499 Very High >500 24 Desirable <200 Borderline high 200-239 High >239 25 Low <40 Desirable: 40-60 High: >60 26 Desirable: <100 mg/dL Near Optimal: 100-129 mg/dL Borderline High: 130-159 mg/dL High: 160-189 mg/dL Very High: >189 mg/dL 27 FASTING 10 HOUR 28 Because ethnic data is not always readily [...] Procedures Date CPT Code Description Status 09/11/2017 96560 ECHO Transthorasic Realtime 2D W Doppler & Color Completed Flow Hosp 07/28/2017 Mammogram Completed 05/31/2016 Mammogram Completed Encounters Type Date Location Provider CPT E/M Dx Office Visit 01/09/2018 10:40a [facility] [place] [address] F33.0 [place] F10.10 Office Visit 11/25/2017 11:20a [facility] Internal Medicine - Sergio Russell, JUNIE [address] F10.10 [place] F33.0 Z11.4 Office Visit 09/18/2017 9:00a [facility] [place] [address] F10.10 [place] E83.42 R55 E87.1 Z13.220 Office Visit 09/10/2017 7:50a [facility] [place], [address] E87.1 Assoc[facility] Hospitalists I10 F10.10 Office Visit 08/15/2017 10:40a [facility] [place] [address] I10 [place] J01.90 F32.89 Office Visit 07/04/2017 9:00a [facility] [place] [address] I10 [place] R68.84 Office Visit 05/02/2017 1:40p [facility] [place] [address] I10 [place] Z12.31 R94.5 F10.20 M54.5 R22.1 Office Visit 02/12/2017 9:20a [facility] [place] [address] F10.20 [place] I10 M79.675 D48.5 Office Visit 12/02/2016 11:40a [facility] [place] [address] I10 [place] F10.20 D48.5 Office Visit 10/01/2016 9:40a [facility] [place] [address] R50.9 [place] Office Visit 09/27/2016 9:40a [facility] [place] [address] Z01.818 [place] H26.9 I10 E87.1 E83.42 F10.20 Office Visit 07/17/2016 9:20a [facility] [place] [address] I10 [place] F10.20 E87.1 L65.8 F41.9 Office Visit 06/26/2016 9:20a [facility] [place] [address] I10 [place] F10.20 F41.9 E83.42 K21.9 Office Visit 05/08/2016 3:00p [facility] [place] [address] I10 [place] F10.20 Office Visit 10/15/2015 9:35a [facility] [place], [address] F10.230 [facility]ists [place] Office Visit 10/14/2015 9:34a [facility] [place] [address] F10.230 [facility] [place] Plan of Care 01/30/2018 - Germaine Sheppard M.D.R07.9 Chest pain, unspecifiedNew Xrays:Chest PA & Lat 2 VWSNew Orders:EKGComments:Your EKG is the same as in 1261A32.1 MyalgiaComments:Please do blood krpdsI94.20 Alcohol dependence, uncomplicatedComments:You need a program to help you quit drinking - keep working on the phone pbwtsZ64.0 NauseaNew Medication:Ondansetron 4 mgComments: You need to see a quality improvement analyst
--- OUTSIDE RECORDS SUMMARY | 2018-02-02 15:56 | XMS REPORT ---
:1965 External Reference #:[id number] Author Organization [facility] Address [address] [address] Phone [phone] Care Team Providers Name Role Phone Germaine Sheppard MD Primary Care Physician Unavailable Payers Type Date Identification Numbers Payment Provider Subscriber Medicare Primary Policy Number: [id number] Medicare Dinh Samson PayID: [id number] [facility] [address] [place] [address] Problems Date Description Provider Status Onset: 05/12/2016 [...] Form Strength Qnty SIG Indications Ordering Provider Desvenlafaxine 01/09 Active Tablets 100mg 30tab 1 by mouth Sergio Succinate ER /2017 ER 24HR s every morning JUNIE Russell Ativan 08/15 Active Tablets 1mg 30tab 1/2-1 tab by Sergio /2016 s mouth twice JUNIE Russell daily as [...] Tablets 150mg 180ta one tablet K21.9 bs twice daily JUNIE Russell as needed B Complex Active Capsules 1 by mouth Unknown /0000 every day Multi For Her Active Capsules once a day Unknown /0000 otc Clindamycin HCL 08/18 Hx Capsules 150mg JUNIE Russell - 08/18 Levofloxacin 08/18 Hx Tablets 500mg 10tab one by mouth s daily for 10 JUNIE Russell - days 08/28 Bystolic 04/22 Hx Tablets 5mg 90tab 1 by mouth I10 s every day JUNIE Russell - 05/02 [...] ) Vital Signs Date Vital Result Comment 01/09/2018 Weight 102.00 lb per pt Heart [...] Egfr Non- 79.3 >60 Egfr 102.0 >60 9 Laboratory test finding 09/10/2017 Ammonia 47 ?mol/L 16-53 Lactic Acid 1.4 mmol/L 0.5-2.0 10 Troponin-I (TnI) 0.00 ng/mL <0.04 CBC Auto [...] Non- 107.9 >60 Egfr 138.8 >60 11 Urine Drug SCR ED 09/10/2017 Amphetamine Ur Screen None Detected None Detect & [facility] Barbiturates Urine Screen None Detected None Detect Benzodiazepine Urine Screen None Detected None Detect Urine Cannabinoids Screen Presumptive Posi <SEE NOTE> None Detect 12 Urine Cocaine Screen None Detected None Detect Urine Opiates Screen None Detected None Detect Urine Phencyclidine Screen None Detected None Detect 13 Urinalysis Profile 09/10/2017 Urine Color Yellow Urine Appearance Clear Urine Specific [place] 1.005 Low 1.010-1.030 Urine pH 7.0 5-9 [...] Non- 127.6 >60 Egfr 164.2 >60 14 CBC Auto Diff 08/28/2017 White Blood Count [...] Non- 100.0 >60 Egfr 128.6 >60 15 Laboratory test finding 05/29/2017 Magnesium 1.8 mg/dL Low 1.9-2.7 CBC Auto [...] 19 Sensitivities Ua Routine 10/01/2016 Ua Specific [place] 1.015 Ua PH 5 Ua Color yellow [...] >189 8 AM 8.7-22.4 PM <10 9 Because ethnic data is not always [...] 5 Kidney failure <15 (or dialysis) 10 [facility] Severe Sepsis and Septic Shock Management Bundle Measure requires all lactic acids initially measuring >2.0 mmol/L be repeated. 11 Because ethnic data is not always [...] 5 Kidney failure <15 (or dialysis) 12 Presumptive Positive Presumptive positive results are unconfirmed. 13 The urine specimen was tested at the listed cutoffs: Drug class test level (ng/mL) Amphetamines 500 Barbiturates 200 Benzodiazepine metabolites 200 Cocaine metabolites 150 Cannabinoids 50 Opiates 300 Pcp 25 Specimen was received without chain of custody. Results should be used for medical purposes only. 14 Because ethnic data is not always [...] [address]: Sergio Russell NP Acct: [id number] Unit: [id number] AGE: 51 Location: [facility] Re10/01/16 SEX: F Status: REG REF SPEC: [id number] FABIANO: 10/01/16-[address]: Sergio Russell NP REQ: [id number] RECD: 10/01/163293 STATUS: COMP _ SOURCE: URINE SPDESC: ORDERED: Urine Culture COMMENTS: [id number] Urine Source: Random Procedure Result Reported Site Urine Culture Final 10/03/16- 740 ML Organism 1 ESCHERICHIA COLI Jackson Count >100,000 (Many) CFU/ML 1. ESCHERICHIA COLI [...] * ML - MAIN LAB ([facility]) . END OF REPORT * ML=Testing performed at Main Lab DEPARTMENT OF PATHOLOGY, [address] [place] [address] Mele Corey M.D. Director [facility] # [id number] 20 Because ethnic data is not always [...] developed and its performance characteristics determined by [facility] in a manner consistent with CLIA requirements. This test has not been cleared or approved by the U.S. Food and Drug Administration. Test Performed by: [facility] [place] [address] Tumbler Plater: Ollie Oliveira II, M.D., Ph.D. 22 Because [...] Procedures Date CPT Code Description Status 09/11/2017 79968 ECHO Transthorasic Realtime 2D W Doppler & Color Completed Flow Hosp 07/28/2017 Mammogram Completed 05/31/2016 Mammogram Completed Encounters Type Date Location Provider CPT E/M Dx Office Visit 11/25/2017 11:20a [facility] [place] [address] F10.10 Rebekah F33.0 Z11.4 Office Visit 09/18/2017 9:00a [facility] [place] [address] F10.10 Rebekah E83.42 R55 E87.1 Z13.220 Office Visit 09/10/2017 7:50a [facility] Christianne Rivera, [address] E87.1 Assoc,pc [employer] [facility] I10 F10.10 Office Visit 08/15/2017 10:40a [facility] [place] [address] [address] [place] J01.90 F32.89 Office Visit 07/04/2017 9:00a [facility] Sergio Russell, JUNIE [address] [address] [place] R68.84 Office Visit 05/02/2017 1:40p [facility] Internal [facility] Sergio Russell, JUNIE [address] [address] [place] Z12.31 R94.5 F10.20 M54.5 R22.1 Office Visit 02/12/2017 9:20a [facility] [place] [address] F10.20 [place] I10 M79.675 D48.5 Office Visit 12/02/2016 11:40a [facility] [place] [address] [address] [place] F10.20 D48.5 Office Visit 10/01/2016 9:40a [facility] [place] [address] R50.9 [place] Office Visit 09/27/2016 9:40a [facility] [place] [address] Z01.818 [place] H26.9 I10 E87.1 E83.42 F10.20 Office Visit 07/17/2016 9:20a [facility] Sergio Russell, JUNIE [address] [address] [place] F10.20 E87.1 L65.8 F41.9 Office Visit 06/26/2016 9:20a [facility] [place] [address] [address] [place] F10.20 F41.9 E83.42 K21.9 Office Visit 05/08/2016 3:00p [facility] [place] [address] [address] [place] F10.20 Office Visit 10/15/2015 9:35a [facility] Severo Nolan, [address] F10.230 [facility] [place] Office Visit 10/14/2015 9:34a [facility] Ridge Ramos [address] F10.230 [facility] [place] [facility] Plan of Care 01/09/2018 - Sergio Russell NPF33.0 Major depressive disorder, recurrent, mildComments:I recommend contacting [facility] as we discussed at your last visit.Review the list of counselors andmental health services that I provided.F10.10 Alcohol abuse, uncomplicatedComments:I recommend that you contact [facility] to discuss detox. If a referral is needed please let me know.
[2018-02-02] MEDS ORDERED: LORazepam INJ* 2 MG/ML 1 ML VIAL IV PUSH ONE (17:06)
[2018-02-02 17:45] LABS: ABS Basophils 0 10^3/ul (0-0.2); ABS Eosinophils 0 10^3/ul (0-0.6); ABS Lymphocytes 0.4 10^3/ul (1.0-4.8); ABS Monocytes 0.2 10^3/ul (0-0.8); ABS Neutrophils 6.5 10^3/ul (1.5-7.7); ABS Nucleated RBC 0 10^3/ul; Eosinophil % 0.1 % (0-6); Hematocrit 34 % (35-47); Hemoglobin 12.3 g/dl (12.0-16.0); Lymphocyte % 5.1 % (25-47); Mean Corpuscular HGB Conc 36 g/dl (31-36); Mean Corpuscular Hemoglobin 35 pg (27-31); Mean Corpuscular Volume 98 fL (80-97); Nucleated Red Blood Cells % 0; Platelet Count 138 10^3/ul (150-450); Red Blood Count 3.47 10^6/ul (4.0-5.4); Red Cell Distribution Width 13 % (10.5-15)
[2018-02-02 18:05] LABS: EGFR Non-African American 98.2 (>60)
[2018-02-02] MEDS ORDERED: Magnesium Sulfate 1 GM IV* 1 GM/100 ML BAG IV ONE (18:27)
[2018-02-02] MEDS ORDERED: LORazepam INJ* 2 MG/ML 1 ML VIAL IV ONE (18:28)
--- NOTE | 2018-02-02 18:37 | ED ---
Nausea/Vomiting/Diarrhea HPI - HPI Summary HPI Summary: Patient with history of chronic EtOH states she stopped drinking last , has had persistent N/V since. Has been unable to keep down food or fluids for 2- 3 days. Some CP associated with N/V. Saw PCP on Friday for N/V was given prescription for Zofran ODT which she states is not control nausea. Also states they told her EKG for CP was slightly unusual. Patient also states she had tapered her drinking prior to stopping on , has had 1 dose of Ativan since . Denies VELEZ, hallucinations, diaphoresis, increase in chronic shakiness, fever, cough, sore throat, SOB, diarrhea, abdominal pain, change in urinary BM. Medical history is hemangioma in liver 16 years. - History of Current Complaint Chief Complaint: EDNauseaVomitDiarrh Stated Complaint: NAUSEA Time Seen by Provider: 02/02/18 15:47 Hx Obtained From: Patient Hx Last Menstrual Period: post menopausal Onset/Duration: Gradual Onset Timing: Constant Pain Intensity: 0 Nausea/Vomiting Presence: Nauseated, Vomiting Nausea/Vomiting Duration: 3-7 days Vomiting Characteristics: Retching, Nonbilious Diarrhea Presence: No - Allergies/Home Medications Allergies/Adverse Reactions: Allergies Allergy/AdvReac Type Severity Reaction Status Date / Time acetaminophen [From Tylenol] Allergy See Comment Verified 12/01/17 21:00 Penicillins Allergy Rash Verified 12/01/17 21:00 Home Medications: Home Medications Desvenlafaxine Succinate [Desvenlafaxine ER] 100 mg PO DAILY 02/02/18 [History Confirmed 02/02/18] Multivitamins/Minerals TAB* [Theragran/minerals TAB*] 1 tab PO DAILY 02/02/18 [ History Confirmed 02/02/18] Nebivolol (NF) [Bystolic (NF)] 10 mg PO DAILY 02/02/18 [History Confirmed ] Omeprazole CAP* [Prilosec CAP* 20 MG] 20 mg PO DAILY 02/02/18 [History Confirmed 02/02/18] Thiamine HCl [Vitamin B-1] 1 tab PO DAILY 02/02/18 [History Confirmed 02/02/18] Vitamin B Complex CAP* [B Complex CAP*] 1 cap PO DAILY 02/02/18 [History Confirmed 02/02/18] PMH/Surg Hx/FS Hx/Imm Hx Endocrine/Hematology History: Reports: Hx Anemia, Other Endocrine/Hematological Disorders - Hemangioma Denies: Hx Diabetes, Hx Thyroid Disease Cardiovascular History: Reports: Hx Hypertension, Other Cardiovascular Problems/ Disorders - Mitral valve prolapse Denies: Hx Aneurysm, Hx Congestive Heart Failure, Hx Deep Vein Thrombosis, Hx Myocardial Infarction, Hx Pacemaker/ICD, Hx Syncope Respiratory History: Reports: Hx Pleural Effusion, Other Respiratory Problems/ Disorders - TB Denies: Hx Asthma, Hx Chronic Obstructive Pulmonary Disease (COPD), Hx Lung Cancer, Hx Pneumonia, Hx Pulmonary Embolism GI History: Reports: Hx Gastroesophageal Reflux Disease Denies: Hx Gall Bladder Disease, Hx Gastrointestinal Bleed, Hx Ulcer, Hx Urosepsis History: Denies: Hx Acute Renal Failure, Hx Kidney Stones, Hx Renal Disease Musculoskeletal History: Reports: Hx Scoliosis Denies: Hx Gout Sensory History: Reports: Hx Contacts or Glasses Denies: Hx Cataracts, Hx Eye Injury, Hx Eye Prosthesis, Hx Glaucoma, Hx Legally Blind, Hx Macular Degeneration, Hx Vision Problem, Hx Deafness, Hx Hearing Aid, Hx Hearing Problem, Other Sensory Impairments Opthamlomology History: Reports: Hx Contacts or Glasses Denies: Hx Cataracts, Hx Eye Injury, Hx Eye Prosthesis, Hx Glaucoma, Hx Legally Blind, Hx Macular Degeneration, Hx Vision Problem, Other Sensory Impairments Neurological History: Reports: Hx Migraine Denies: Hx CVA, Hx Dementia, Hx Seizures, Hx Transient Ischemic Attacks (TIA) Psychiatric History: Reports: Hx Anxiety, Hx Eating Disorder - Anorexia and Bulimia, Hx Substance Abuse - alcoholic Denies: Hx Depression, Hx Schizophrenia, Hx Bipolar Disorder, Hx Suicide Attempt - Cancer History Cancer Type, Location and Year: Basel cell carcinoma removed from L chest - Surgical History Surgery Procedure, Year, and Place: liposuction 2013, lung surgery 2001, breast reduction age 20, removal of basal cell carcinoma removed from L chest Infectious Disease History: No Infectious Disease History: Reports: 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36; treatedfor 6 months; 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 Denies: Hx Clostridium Difficile, Hx Hepatitis, Hx Human Immunodeficiency Virus (HIV), Hx of Known/Suspected MRSA, Hx Shingles, Hx Known/Suspected VRE, Hx Known/Suspected VRSA, History Other Infectious Disease, Traveled Outside the [place] in Last 30 Days - Family History Known Family History: Positive: Unknown, Other - Sister has scoliosis Negative: Cardiac Disease, Hypertension, Diabetes - Social History Alcohol Use: Daily Alcohol Amount: very large quantities, has history of alcoholism Hx Substance Use: No Substance Use Type: Reports: Marijuana Substance Use Comment - Amount & Last Used: today Hx Tobacco Use: No Smoking Status (MU): Never Smoked Tobacco Review of Systems Constitutional: Negative Eyes: Negative ENT: Negative Positive: Chest Pain Respiratory: Negative Positive: Vomiting, Nausea Genitourinary: Negative Musculoskeletal: Negative Skin: Negative Neurological: Negative Psychological: Normal All Other Systems Reviewed And Are Negative: Yes Physical Exam - Summary Physical Exam Summary: Abdomen tender to palpation in epigastric and right upper quadrant area. Patient denies any pain unless palpated. No evidence of diaphoresis, anxiety, hallucinations. Mild shakiness to bilateral hands, but patient denies any increase in chronic shakiness. Triage Information Reviewed: Yes Vital Signs On Initial Exam: Initial Vitals Pulse Resp BP Pulse Ox 71 20 138/95 98 02/02/18 15:39 02/02/18 15:39 02/02/18 15:39 02/02/18 15:39 Vital Signs Reviewed: Yes Appearance: Positive: Well-Appearing Skin: Positive: Warm Head/Face: Positive: Normal Head/Face Inspection Eyes: Positive: Normal Neck: Positive: Supple Respiratory/Lung Sounds: Positive: Clear to Auscultation Cardiovascular: Positive: Normal Abdomen Description: Positive: Nontender - Thank you thank you 1 wall is myself Musculoskeletal: Positive: Normal - thank you 1 wounds myself more Neurological: Positive: Normal Psychiatric: Positive: Normal AVPU Assessment: Alert - Lungs arms was to be swabbed out in 7 insisted, has started to cut back noted to be evaluated for head CT Diagnostics - Vital Signs Vital Signs Temp Pulse Resp BP Pulse Ox 02/02/18 18:00 92 10 98 02/02/18 17:39 85 15 143/98 96 02/02/18 17:23 15 02/02/18 17:16 97 17 152/87 98 02/02/18 17:09 91 15 148/95 98 02/02/18 17:00 90 16 99 02/02/18 16:40 91 17 151/103 100 02/02/18 16:09 76 14 136/90 99 02/02/18 16:00 77 15 97 02/02/18 15:44 97.6 F 72 14 138/95 100 02/02/18 15:41 80 30 02/02/18 15:39 71 20 138/95 98 - Laboratory Lab Results: Lab Results 02/02/18 02/02/18 02/02/18 Range/Units 17:15 17:15 17:15 WBC 7.0 (3.5-10.8) 10^3/ul RBC 3.47 L (4.0-5.4) 10^6/ul Hgb 12.3 (12.0-16.0) g/dl Hct 34 L (35-47) % MCV 98 H (80-97) fL MCH 35 H (27-31) pg MCHC 36 (31-36) g/dl RDW 13 (10.5-15) % Plt Count 138 L (150-450) 10^3/ul MPV 7.0 L (7.4-10.4) um3 Neut % (Auto) 91.6 H (38-83) % Lymph % (Auto) 5.1 L (25-47) % [place] % (Auto) 2.7 (0-7) % Eos % (Auto) 0.1 (0-6) % Baso % (Auto) 0.5 (0-2) % Absolute Neuts (auto) 6.5 (1.5-7.7) 10^3/ul Absolute Lymphs (auto) 0.4 L (1.0-4.8) 10^3/ul Absolute Monos (auto) 0.2 (0-0.8) 10^3/ul Absolute Eos (auto) 0 (0-0.6) 10^3/ul Absolute Basos (auto) 0 (0-0.2) 10^3/ul Absolute Nucleated RBC 0 10^3/ul Nucleated RBC % 0 Sodium 130 L (139-145) mmol/L Potassium 3.3 L (3.5-5.0) mmol/L Chloride 91 L (101-111) mmol/L Carbon Dioxide 24 (22-32) mmol/L Anion Gap 15 H (2-11) mmol/L BUN 8 (6-24) mg/dL Creatinine 0.64 (0.51-0.95) mg/dL Est GFR ( Amer) 126.3 (>60) Est GFR (Non-Af Amer) 98.2 (>60) BUN/Creatinine Ratio 12.5 (8-20) Glucose 113 H (70-100) mg/dL Lactic Acid 4.2 H* (0.5-2.0) mmol/L Calcium 8.1 L (8.6-10.3) mg/dL Magnesium 1.2 L (1.9-2.7) mg/dL Total Bilirubin 2.70 H (0.2-1.0) mg/dL AST 420 H (13-39) U/L ALT 139 H (7-52) U/L Alkaline Phosphatase 124 H (34-104) U/L Total Protein 6.0 L (6.4-8.9) g/dL Albumin 3.3 (3.2-5.2) g/dL Globulin 2.7 (2-4) g/dL Albumin/Globulin Ratio 1.2 (1-3) Lipase Pending Serum Alcohol < 10 (<10) mg/dL Result Diagrams: 02/02/18 17:15 02/02/18 17:15 Lab Statement: Any lab studies that have been ordered have been reviewed, and results considered in the medical decision making process. Re-Evaluation - Re-Evaluation 1 Re-Evaluation Time: 19:43 Comment: Nausea was not originally controlled after Reglan. Nausea is now controlled after second Ativan 1 mg. Patient asking if she can eat, has asked for ice cream. Continues to deny abdominal pain, hallucinations, sweats, headache, anxiety, increasing chronic shakiness. Magnesium level was 1.2, has been given 1 gm magnesium sulfate IV. Lactate was elevated, will be rechecked after 1 L of lactated Ringer's, 1 L of normal saline. Naus/Vom/Diarrhea Course/Dx - Course Course Of Treatment: Patient with history of chronic EtOH states she stopped drinking last , has had persistent N/V since. Has been unable to keep down food or fluids for 2-3 days. Some CP associated with N/V. Saw PCP on Friday for N/V was given prescription for Zofran ODT which she states is not control nausea. Also states they told her EKG for CP was slightly unusual. Patient also states she had tapered her drinking prior to stopping on , has had 1 dose of Ativan since . Denies VELEZ, hallucinations, diaphoresis , increase in chronic shakiness, fever, cough, sore throat, SOB, diarrhea, abdominal pain, change in urinary BM. Medical history is hemangioma in liver 16 years. Abdomen tender to palpation in epigastric and right upper quadrant area. Patient denies any pain unless palpated. No evidence of diaphoresis, anxiety, hallucinations. Mild shakiness to bilateral hands, but patient denies any increase in chronic shakiness. No obvious evidence of EtOH withdrawal. EtOH negative today. Discussed patient with Dr. Mccall, who recommended patient be admitted Elevated lactic, elevated liver enzymes compared to levels from prior visit 2 months ago. - Differential Dx/Diagnosis Provider Diagnoses: Elevated lactic level. Elevated liver enzymes Discharge - Sign-Out/Discharge Documenting (check all that apply): Sign-Out Patient Signing out patient TO: Shawna Matos will speak to hospitalist concerning admission. - Discharge Plan Referrals: Sergio Russell, IAP DISPLAYS ANALYST [Primary Care Provider] -
[2018-02-02] MEDS ORDERED: Thiamine IV* 100 MG, Folic Acid IV* 1 MG, Multiple Vitamin IV ADULT* 10 ML in NS 0.9% 1... IV ONE (19:51)
[2018-02-02 20:25] LABS: EGFR Non-African American 94.8 (>60)
--- NOTE | 2018-02-02 20:43 | RAD ---
2: Elevated liver enzymes. Real-time sonography of the right upper quadrant was performed. The liver measures 15 cm in length. There is a hyperechoic lesion in the left lobe of the liver measuring 17 x 12 x 20 mm. This may represent a hemangioma. This was not present previously. The gallbladder demonstrates no gallstones, pericholecystic fluid or wall thickening. The common duct measures 4 mm. Pancreas head, neck and proximal body demonstrates no mass or pancreatic duct dilatation. The aorta and inferior vena cava are unremarkable. IMPRESSION: NO EVIDENCE OF CHOLELITHIASIS OR BILIARY DUCT DILATATION IS NOTED. LIKELY HEMANGIOMA IN THE LEFT LOBE OF LIVER MEASURING UP TO 1.7 X 1.2 X 2.0 CM.
--- NOTE | 2018-02-02 21:15 | PN ---
Progress Note - Progress Note Date of Service: 02/02/18 Note: patient was a sign out from Hussein LÓPEZ at shift change pending hospitalist consult Spoke with hospitalist Tiffany at 9:09pm who stated he would consult on patient after he speaks with GI specialist. Dr Mccall also spoke to hospitalist. Patient was eating on re-eval at 9:15am CTA RRR Patient will be admitted to hospitalist service. discharge: admission to floor diagnosis: alcoholic hepatitis
[2018-02-02] MEDS ORDERED: Calcium CHLORIDE 10% SYRINGE* 1 GM in D5W 100 ML BAG* 100 ML IV ONE (21:34)
[2018-02-02] MEDS ORDERED: KCL 20 MEQ/100 ML IVPREMIX* 20 MEQ/100 ML BAG IV ONE (21:59)
[2018-02-02 22:02] LABS: INR 0.95 (0.77-1.02)
[2018-02-02] MEDS ORDERED: Thiamine IV 100 MG, Folic Acid IV* 1 MG, Multiple Vitamin IV ADULT* 10 ML in NS 0.9% 10... IV ONE (22:12)
[2018-02-02] MEDS ORDERED: Al Hydrox/Mg Hydrox/Simet LIQ* 30 ML UDC PO PRN (22:19)
[2018-02-02] MEDS ORDERED: Ondansetron 40 MG VIAL* 2 MG/ML 20 ML VIAL IV PRN (22:20)
[2018-02-02] MEDS ORDERED: PROCHLORPERAZINE INJ 5 MG/ML 2 ML VIAL IV PRN (22:20)
[2018-02-02] MEDS ORDERED: LORazepam TAB(*) 1 MG PO SCH (23:00)
[2018-02-02] MEDS ORDERED: NS 0.9% 1000 ML* 1,000 ML IV SCH (23:00)
[2018-02-02] MEDS ORDERED: CMCS: Nebivolol TAB (NF) 2.5 MG TAB PO SCH (23:00)
[2018-02-02] MEDS ORDERED: Omeprazole CAP* 20 MG PO SCH (23:59)
[2018-02-03 05:01] LABS: INR 0.88 (0.77-1.02)
[2018-02-03 05:13] LABS: EGFR Non-African American 90.1 (>60)
[2018-02-03 05:18] LABS: Hematocrit 33 % (35-47); Hemoglobin 11.8 g/dl (12.0-16.0); Mean Corpuscular HGB Conc 36 g/dl (31-36); Mean Corpuscular Hemoglobin 35 pg (27-31); Mean Corpuscular Volume 97 fL (80-97); Mean Platelet Volume 7.3 um3 (7.4-10.4); Platelet Count 135 10^3/ul (150-450); Red Blood Count 3.36 10^6/ul (4.0-5.4); Red Cell Distribution Width 13 % (10.5-15); White Blood Count 4.4 10^3/ul (3.5-10.8)
--- NOTE | 2018-02-03 06:07 | HP ---
HISTORY AND PHYSICAL: ADDENDUM: The INR has just recently been reported and on calculation of her discriminant function which is -48 does not meet criteria for either pentoxifylline and/or prednisolone therapy especially with the MELD score of 11. We will continue to follow her LFTs during her course. [id number]/[facility] #: [id number] [facility]ITALDamon
[2018-02-03] MEDS ORDERED: Potassium Phosphate IV* 10 MMOLE in NS 0.9% 250 ML* 250 ML IVPB ONE (07:06)
[2018-02-03] MEDS ORDERED: Magnesium Sulfate IV* 3 GM in NS 0.9% 100 ML* 100 ML IVPB ONE (07:07)
--- NOTE | 2018-02-03 07:39 | HP ---
ADMITTING HISTORY AND PHYSICAL: DATE OF ADMISSION: 02/02/18 CHIEF COMPLAINT: Nausea and vomiting for the past 5 days. HISTORY OF PRESENT ILLNESS/HOSPITAL COURSE: The patient is a 52-year-old lady with history of GERD, hypertension, and alcohol abuse, who was last seen in our facility back in September of 2017 with diagnoses of syncopal episode and orthostatic hypotension along with alcohol withdrawal symptoms at that time. She had been in her usual state of health and wanted to stop alcohol and has tried to stop her habit multiple times only to be readmitted with alcohol withdrawal. She then once again had a relapse since her last discharge and mentions that she had been drinking at least 3 glasses of wine and 1 beer per day on average and mentions that she stopped drinking on to try to wean herself off alcohol. In addition, she was also feeling nauseated at that time. For the past 5 days, she mentions that she has had some nausea and vomiting, although unclear how many times on average she has had them given she appears confused despite being oriented. She herself mentions that she feels "loopy." Persistence of her signs and symptoms led to her presentation in the ED, for which she was found to have transaminitis and electrolyte abnormality. In the ED, she received 1 g of magnesium sulfate, metoclopramide, lorazepam, and 1 L bolus of LR. PAST MEDICAL HISTORY: Alcohol abuse, anemia, hypertension, mitral valve prolapse, GERD, history of V-tach, scoliosis, migraine, tuberculosis, anorexia, bulimia. PAST SURGICAL HISTORY: Status post abdominal liposuction, status post lung surgery, status post bilateral breast reduction, status post excision of basal cell carcinoma from her left chest. MEDICATIONS: Her home medications are as follows: 1. Vitamin B complex capsule. 2. Multivitamins. 3. Desvenlafaxine ER 100 mg p.o. daily. 4. Thiamine 1 tab p.o. daily. 5. Omeprazole 20 mg p.o. daily. 6. Nebivolol 10 mg p.o. daily. ALLERGIES: To ACETAMINOPHEN and PENICILLIN. FAMILY HISTORY: The patient denied any family history of coronary artery disease and diabetes mellitus. The patient's grandfather had history of sinus carcinoma and grandmother had history of breast and ovarian cancer. Mother has history of squamous cell skin carcinoma and father with a history of basal skin carcinoma. SOCIAL HISTORY: The patient denied any tobacco use. She reports drinking half a bottle of vodka and 1-1/2 bottles of champagne previously, but in this admission, she only admits to 3 glasses of wine and 1 beer per day on average. She denies any other illicit drugs that she uses, although she has previously mentioned that she occasionally smokes marijuana. She mentions that she is , without children, but has a partner named Mushtaq Montoya and his number is [phone], an important contact in the future. REVIEW OF SYSTEMS: She complains about her recent nausea and vomiting as described above, but denied any abdominal pain. She also describes history of possible epigastric pain that has radiated to her left side, left-sided chest pain for the past 4 days. She mentions that she currently does not have any chest pain at this time. She denied any recent headaches, although she mentions that her mentation is not at its optimum at this time. Denied any abdominal pain. Denied any diarrhea, constipation, myalgias, arthralgias, throat pain, or new skin lesions. The rest of the 14-point review of systems other than what was described is otherwise unremarkable. PHYSICAL EXAMINATION GENERAL APPEARANCE: The patient is awake, confused, but oriented x3, ill- appearing lady. VITAL SIGNS: Reveal the most recent vital signs of record with blood pressure of 141/96, heart rate of 95 beats per minute, respiratory rate of 16, saturating 95% on room air, temperature of 97.6 degrees Fahrenheit. HEENT: Normocephalic, atraumatic. PERRLA. Extraocular muscles intact. Negative for icterus despite total bilirubin of 3.2. Negative throat erythema. NECK: Soft and supple with no cervical lymphadenopathy, no JVD. CHEST: Clear to auscultation bilaterally. Good air entry. No wheezes, rales, or rhonchi. HEART: S1, S2 within normal limits. Regular rate and rhythm. No murmurs, rubs , or gallops. ABDOMEN: Soft, nondistended, nontender. Normoactive bowel sounds x4 quadrants. EXTREMITIES: No cyanosis, clubbing, or edema. PSYCHIATRIC: No active psychosis, depression, suicidal or homicidal ideations. SKIN: Warm to touch. DIAGNOSTIC STUDIES/LAB DATA: Laboratory and imaging data have been reviewed. Please see discussion below. ASSESSMENT AND PLAN: As follows: 1. Alcoholic hepatitis. Unfortunately, at this time, the INR is unavailable and we will calculate both MELD score and discriminant function to determine the severity of the patient's alcoholic hepatitis given rising transaminases and the rest of her liver function tests including her total bilirubin. I have discussed the case with Dr. Johnson given my concern of the rising liver function tests and limited option for an alcoholic, who has failed time and again to abstain. If the discriminant function meets criteria, we will either start pentoxifylline or prednisone. I have discussed specifically using prednisone with Dr. Johnson given I do not believe that the patient has any infectious process at this time and hence we will consider this once this data is available. We will also place the patient on Ensure every meals and the patient has been encouraged to increase her oral intake given recent data has shown that appropriate nutritional status and increasing nutritional status in alcoholic hepatitis has improved morbidity and mortality. She understands this well and is currently hungry and hence reassuring. 2. Alcohol abuse. The patient does not have any signs of withdrawal at this time; however, she is at high risk of withdrawal and hence we will place her on WAM protocol with p.r.n. dosing of Ativan, PO. We will also place the patient on a banana bag to further replenish her fluids and nutritional status. 3. Electrolyte abnormalities such as hypomagnesemia, hypocalcemia, and hypokalemia. Hypomagnesemia was corrected in the ER. We will give the patient calcium chloride as well as appropriate dosing of potassium chloride as ordered and we will continue watchful waiting likely secondary to nausea and vomiting. 4. Euvolemic hyponatremia, possibly due to syndrome of inappropriate secretion of antidiuretic hormone versus imbibing significant amount of hypotonic fluids such as alcohol, much like a psychogenic polydipsia. We will check TSH and urine lytes and urine osms to confirm suspicion. 5. Chest pain. I believe that this is primarily due to her gastroesophageal reflux disease given her history of significant gastroesophageal reflux disease as well as her history where she mentioned that this began as an epigastric pain that radiated to her left side. She is currently chest pain-free; however , we will check troponin. EKG did not have any EKG changes. We will continue to trend troponin. We will place the patient on pantoprazole and increase her home dose from 20 to 40 mg as part also of her ulcer prophylaxis. 6. Gastroesophageal reflux disease. Please see above discussion. 7. Depression, well controlled. The patient denies depression or anhedonia at this time. We will continue desvenlafaxine. 8. Hypertension. We will continue nebivolol and we will continue watchful waiting and we will titrate meds per the patient's response. 9. Incidental finding of hemangioma at the left lobe of liver, measuring 1.7 x 1.2 x 2.0 cm. We will continue watchful waiting and we will decrease frequency of DVT prophylaxis given this incidental finding. 10. DVT prophylaxis. We will place patient on heparin q.12 as discussed above. 11. Disposition. We will consult social welfare clerk to further educate the patient and provide other outpatient opportunities for her alcohol dependence and addiction given she mentions that she would like to quit, but unfortunately often relapses. We will also ask for Physical Therapy to evaluate the patient for discharge planning. [id number]/[facility] #: [id number] TYESHA
[2018-02-03] MEDS ORDERED: LORazepam INJ* 2 MG/ML 1 ML VIAL IV SCH (08:00)
[2018-02-03] MEDS ORDERED: Magnesium Sulfate 2 GM IV IVPB ONE (08:00)
[2018-02-03] MEDS ORDERED: Folic Acid TAB* 1 MG PO SCH (09:00)
[2018-02-03] MEDS ORDERED: DESVENLAFAXINE 100 MG PO SCH (09:00)
[2018-02-03] MEDS ORDERED: Magnesium Sulfate 1 GM IV* 1 GM/100 ML BAG IV ONE (09:00)
[2018-02-03] MEDS ORDERED: Heparin VIAL(*) 5000 UNITS/ML VIAL (FIVE THOUSAND) SUBCUT SCH (09:00)
[2018-02-03] MEDS ORDERED: Thiamine TAB* 100 MG TAB PO SCH (09:00)
[2018-02-03] MEDS ORDERED: Pantoprazole IV* 40 MG IV SCH (09:00)
[2018-02-03] MEDS ORDERED: Multivitamins/Minerals TAB PO SCH (09:00)
[2018-02-03 09:56] VITALS: BP 173/115
[2018-02-03] MEDS ORDERED: NEBIVOLOL 10 MG PO SCH (21:00)
--- NOTE | 2018-02-04 10:40 | DS ---
CC: Sergio Russell NP; Dr. Sheppard * DISCHARGE SUMMARY: DATE OF ADMISSION: 02/02/18 DATE OF DISCHARGE: Against medical advice, 02/03/18 PRIMARY CARE PROVIDER: Sergio Russell NP. DISCHARGE DIAGNOSES: 1. Chest pain. 2. Recurrent nausea and vomiting. 3. Hypokalemia. 4. Hypomagnesemia. 5. Hypophosphatemia. 6. Alcoholic hepatitis. 7. Alcohol withdrawal. SECONDARY DIAGNOSES: 1. Alcohol abuse. 2. Hypertension. 3. Mitral valve prolapse. 4. Gastroesophageal reflux disease. 5. History of ventricular tachycardia. 6. Migraine. 7. Remote history of tuberculosis. 8. Anorexia. 9. Bulimia. MEDICATION LIST: 1. Vitamin B 1 capsule p.o. daily. 2. Multivitamins 1 tablet p.o. daily. 3. Desvenlafaxine succinate 100 mg p.o. daily. 4. Thiamine 100 mg p.o. daily. 5. Omeprazole 20 mg p.o. daily. 6. Nebivolol 10 mg p.o. daily. New medications: 1. Neutra-Phos 250 mg p.o. t.i.d. for 5 days. 2. Magnesium oxide 400 mg p.o. b.i.d. HOSPITAL COURSE: Ms. Samson is a 52-year-old lady with a past medical history as stated above that presented to the emergency room with complaints of nausea and vomiting for 4 to 5 days prior to admission, associated with chest pain. The patient has a history of alcohol abuse and states that she has quit many times, but relapsed and now is drinking 3 glasses of wine a day and a beer on average. Her last drink was 5 days ago when she was trying to quit one more time. For more details about her presentation, I refer you to her history and physical. The patient had an EKG that was negative for ischemic changes, serial troponins that were negative, but her workup in the emergency room was compatible with alcoholic hepatitis with an AST of 546, ALT of 146, total bilirubin of 3.9. The patient during my evaluation denied chest or abdominal pain. She states her nausea and vomiting is resolved and requests a solid diet. I had a lengthy conversation with the patient regarding her diagnosis. I am concerned with her chest pain and I believe she should stay for further cardiac workup. I am also concerned with her electrolyte imbalances, especially her low magnesium as the patient has a prior history of V-tach. We also talked about her alcoholic hepatitis and the risks including progression to cirrhosis and . I explained to the patient that she would benefit from staying in the hospital for further evaluation and treatment, but she is adamant that she wants to go home. The patient is a alert, awake, and oriented x3. She is showing no signs of confusion and she is able to understand the information I gave her. She understands that her low magnesium may provoke another episode of V-tach and this may be fatal. She also understands that if she continues to drink, her liver disease will continue to progress likely to cirrhosis and be followed by . The patient verbalized understanding, but states that she does not want to stay in the hospital anymore. She would rather follow up with her primary care provider as an outpatient and she is not interested in rehab at this time. She states that she was able to quit drinking in the past and she will be able to do it again. It is my understanding at this time that the patient has the capacity to sign out against medical advice, even though I do not agree with her decision. The patient was noted to be tachycardiac overnight, hypertensive, but did not have diaphoresis. The impression is that she is having alcohol withdrawal, but as stated above, at this point, she shows no signs of confusion. The patient states that she never had seizure when she quit drinking in the past and she is not interested in an Ativan taper at this time. PHYSICAL EXAMINATION: Vital Signs: Temperature 98.0, heart rate is 87, respiratory rate 16, oxygen saturation 100% on room air, blood pressure was 173/ 115. General: The patient is a middle-aged lady, lying in bed, in no acute distress. CVS: Normal S1 and S2. Regular rate and rhythm. Chest: Breath sounds present bilaterally with no added sounds. Abdomen: Soft. Bowel sounds are present. Neuro: She is alert and oriented x3. Able to move all 4 extremities. Skin: The patient has some facial erythema with telangiectasis on her cheeks. DIET: Regular diet. ACTIVITY: As tolerated. DISPOSITION: To home. STATUS IN THE HOSPITAL: Inpatient. The patient left against medical advice. Please keep in mind this is a summarized version of this patient's hospital stay. If you need more information, please feel free to call me at [phone] or please obtain the full medical records. TIME SPENT: Approximately 45 minutes was spent to complete this discharge. [id number]/[facility] #: [id number] TYESHA
== END 2018-02-03 10:05 | disposition left against medical advice (07) | DRG 433 ==
LOC: ED 15:30 → ICU 22:03
PROVIDERS: ADMIT Student in an Organized Health Care Education/Training Program; ATTEND Internal Medicine
DX: K70.10 Alcoholic hepatitis without ascites (principal); F50.00 Anorexia nervosa, unspecified; F50.2 Bulimia nervosa; E87.1 Hypo-osmolality and hyponatremia; R07.9 Chest pain, unspecified; D18.09 Hemangioma of other sites; I10 Essential (primary) hypertension; I34.1 Nonrheumatic mitral (valve) prolapse; K21.9 Gastro-esophageal reflux disease without esophagitis; M41.9 Scoliosis, unspecified; G43.909 Migraine, unspecified, not intractable, without status migrainosus; F41.9 Anxiety disorder, unspecified; F32.9 Major depressive disorder, single episode, unspecified; E87.6 Hypokalemia; E83.51 Hypocalcemia; E83.42 Hypomagnesemia; E83.39 Other disorders of phosphorus metabolism; F10.10 Alcohol abuse, uncomplicated; Y90.9 Presence of alcohol in blood, level not specified; Z80.8 Family history of malignant neoplasm of other organs or systems; Z80.3 Family history of malignant neoplasm of breast; Z88.0 Allergy status to penicillin; Z88.8 Allergy status to other drugs, medicaments and biological substances; Z86.11 Personal history of tuberculosis; Z85.828 Personal history of other malignant neoplasm of skin; Z82.69 Family history of other diseases of the musculoskeletal system and connective tissue; Z80.41 Family history of malignant neoplasm of ovary
CPT/HCPCS: 36415; 76705; 80053; 80074; 80307; 80320; 82436; 82570; 83605; 83690; 83735; 83930; 83935; 84100; 84133; 84300; 84443; 84484; 84540; 85025; 85027; 85610; 86140; 87641; 93005; 99284; A9270-GY; G0480; J1644; J2060; J2765; J3411; J3475; J3480

== ENCOUNTER 2018-12-29 08:07 | Emergency (ER) | payer MEDICARE ==
[2018-12-29 08:13] VITALS: BP 126/96
--- NOTE | 2018-12-29 08:43 | ED ---
Complex/Multi-Sys Presentation - HPI Summary HPI Summary: Pt is a 53 y/o female who presents to the ED c/o hyponatremia. She was sent here by Dr. Sheppard for re-testing due to her recent low levels of sodium. Pt was also told she was at risk for a seizure. She denies any dizziness or generalized weakness. Pt is already expressing that she wants to leave within five minutes of arrival. She has a hx of heavy alcohol abuse and states that she would like to stop drinking. PMHx hyponatremia and alcohol withdrawal. - History Of Current Complaint Chief Complaint: EDGeneral Time Seen by Provider: 12/29/18 08:32 Hx Obtained From: Patient Onset/Duration: Still Present Timing: Constant Severity Currently: None Location: Negative Aggravating Factor(s): Alcohol abuse Alleviating Factor(s): Nothing Associated Signs And Symptoms: Negative: Dizziness, Weakness Related History: Other - hx alcohol abuse - Allergies/Home Medications Allergies/Adverse Reactions: Allergies Allergy/AdvReac Type Severity Reaction Status Date / Time acetaminophen [From Tylenol] Allergy See Comment Verified 12/29/18 08:12 Penicillins Allergy Rash Verified 12/29/18 08:12 PMH/Surg Hx/FS Hx/Imm Hx Endocrine/Hematology History: Reports: Hx Anemia, Other Endocrine/Hematological Disorders - Hemangioma in liver x 16 years Denies: Hx Diabetes, Hx Thyroid Disease Cardiovascular History: Reports: Hx Hypertension, Other Cardiovascular Problems/ Disorders - Mitral valve prolapse Denies: Hx Aneurysm, Hx Congestive Heart Failure, Hx Deep Vein Thrombosis, Hx Myocardial Infarction, Hx Pacemaker/ICD, Hx Syncope Respiratory History: Reports: Hx Pleural Effusion, Other Respiratory Problems/ Disorders - TB Denies: Hx Asthma, Hx Chronic Obstructive Pulmonary Disease (COPD), Hx Lung Cancer, Hx Pneumonia, Hx Pulmonary Embolism GI History: Reports: Hx Gastroesophageal Reflux Disease Denies: Hx Gall Bladder Disease, Hx Gastrointestinal Bleed, Hx Ulcer, Hx Urosepsis History: Denies: Hx Acute Renal Failure, Hx Kidney Stones, Hx Renal Disease Musculoskeletal History: Reports: Hx Scoliosis Denies: Hx Gout Sensory History: Reports: Hx Contacts or Glasses Denies: Hx Cataracts, Hx Eye Injury, Hx Eye Prosthesis, Hx Glaucoma, Hx Legally Blind, Hx Macular Degeneration, Hx Vision Problem, Hx Deafness, Hx Hearing Aid, Hx Hearing Problem, Other Sensory Impairments Opthamlomology History: Reports: Hx Contacts or Glasses Denies: Hx Cataracts, Hx Eye Injury, Hx Eye Prosthesis, Hx Glaucoma, Hx Legally Blind, Hx Macular Degeneration, Hx Vision Problem, Other Sensory Impairments Neurological History: Reports: Hx Migraine Denies: Hx CVA, Hx Dementia, Hx Seizures, Hx Transient Ischemic Attacks (TIA) Psychiatric History: Reports: Hx Anxiety, Hx Eating Disorder - Anorexia and Bulimia, Hx Substance Abuse - Alcohol Denies: Hx Depression, Hx Schizophrenia, Hx Bipolar Disorder, Hx Suicide Attempt - Cancer History Cancer Type, Location and Year: Basel cell carcinoma removed from L chest - Surgical History Surgery Procedure, Year, and Place: liposuction 2013, lung surgery 2001, breast reduction age 20, removal of basal cell carcinoma removed from L chest Infectious Disease History: No Infectious Disease History: Reports: 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36; treatedfor 6 months; 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 Denies: Hx Clostridium Difficile, Hx Hepatitis, Hx Human Immunodeficiency Virus (HIV), Hx of Known/Suspected MRSA, Hx Shingles, Hx Known/Suspected VRE, Hx Known/Suspected VRSA, History Other Infectious Disease, Traveled Outside the [place] in Last 30 Days - Family History Known Family History: Positive: Other - Sister has scoliosis Negative: Cardiac Disease, Hypertension, Diabetes - Social History Alcohol Use: Daily Alcohol Amount: very large quantities, has history of alcoholism Hx Substance Use: Yes Substance Use Type: Reports: Marijuana Substance Use Comment - Amount & Last Used: today Hx Tobacco Use: No Smoking Status (MU): Never Smoked Tobacco Review of Systems Negative: Other - generalized weakness Neurological: Other - NEGATIVE: dizziness All Other Systems Reviewed And Are Negative: Yes Physical Exam - Summary Physical Exam Summary: Appearance: well appearing, no pain distress Skin: warm, dry, reflects adequate perfusion Head/face: normal Eyes: EOMI, SAFIA ENT: mucous membranes moist Neck: supple, non-tender Respiratory: CTA, breath sounds present Cardiovascular: RRR, pulses symmetrical Abdomen: non-tender, soft Bowel Sounds: present Musculoskeletal: normal, strength/ROM intact Neuro: normal, sensory motor intact, A&Ox3 Triage Information Reviewed: Yes Vital Signs On Initial Exam: Initial Vitals Temp Pulse Resp BP Pulse Ox 97.7 F 88 16 126/96 95 12/29/18 08:09 12/29/18 08:09 12/29/18 08:09 12/29/18 08:09 12/29/18 08:09 Vital Signs Reviewed: Yes Diagnostics - Vital Signs Vital Signs Temp Pulse Resp BP Pulse Ox 12/29/18 08:09 97.7 F 88 16 126/96 95 - Laboratory Lab Statement: Any lab studies that have been ordered have been reviewed, and results considered in the medical decision making process. Complex Multi-Symp Course/Dx Course Of Treatment: Patient with a history of long-standing alcoholism presents without symptoms and a outpatient laboratory sodium value of 123. She is wanting to leave on arrival. IV explained to her that this is likely as a result of her alcoholism. Also, it can be artificially low for alcohol level is high. Given that she has no symptoms at present she doesn't wish for IV fluids or repeat testing. She will follow-up with her primary care physician. I have given her follow-up with the adolescent counselor with Dr. Alston for help with her alcoholism. - Diagnoses Provider Diagnoses: Alcoholism, Hyponatremia Discharge - Sign-Out/Discharge Documenting (check all that apply): Patient Departure - Discharge Patient Received Moderate/Deep Sedation with Procedure: No - Discharge Plan Condition: Improved Disposition: HOME Patient Education Materials: Hyponatremia (ED), Alcohol Use Disorder (ED) Referrals: Germaine Sheppard MD [Primary Care Provider] - Additional Instructions: Walk-in at [facility] for help with her alcoholism. Return with dizziness, palpitations, weakness, worse, new symptoms or other concerns. Cutting back on his drinking will help your low sodium level. Make sure you eat a regular diet and take a multivitamin each day. This multivitamin should contain thiamine as well. Call your doctor today to schedule follow-up. - Billing Disposition and Condition Condition: IMPROVED Disposition: Home - Attestation Statements Document Initiated by Inesibe: Yes Documenting Scribe: Sarah Herrera Provider For Whom Dirk is Documenting (Include Credential): Michele Haddad MD Scribe Attestation: Sarah Allen, scribed for Michele Haddad MD on 12/29/18 at 1757. Scribe Documentation Reviewed: Yes Provider Attestation: The documentation as recorded by the Sarah sanford accurately reflects the service I personally performed and the decisions made by me, Michele Haddad MD Status of Scribe Document: Viewed
--- OUTSIDE RECORDS SUMMARY | 2018-12-29 08:47 | XMS REPORT | Continuity of Care Document ---
:1965 External Reference #:[id number] Author Name Rita George Care Team Providers Name Role Phone Germaine Sheppard MD Primary Care Physician Unavailable Payers Date Identification Numbers Payment Provider Subscriber Effective: 2018 Policy Number: [id number] Medicare [address] Harris PayID: [id number] [address] [place] [address] Expires: 2018 Policy Number: [id number] Medicare [address] Harris PayID: [id number] [address] [place] [address] Advance Directives Description No Information Available Problems Active Problems Provider Date Essential hypertension Sergio Russell NP Onset: 05/12/2016 Insomnia Sergio Russell NP Onset: 05/12/2016 H/O: tuberculosis Sergio Russell NP Onset: 05/12/2016 Alcohol abuse Sergio Russell NP Onset: 05/12/2016 Mitral valve prolapse Sergio Russell NP Onset: 08/28/2017 Acute alcoholic liver disease Tobin Resendiz MD Onset: 02/02/2018 Family History Date Family Member(s) Observation Comments General No Current Problems Father Skin Cancer Mother Skin Cancer Social History Type Date Description Comments Sex Unknown 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 Marital Status Significant Other currently ETOH Use Currently consumes States she drinks alcohol excessively, all day. Goes through alcohol withdrawal if she does not drink for 5 hours Tobacco Use Start: Unknown Patient has never smoked Recreational Drug Use Current Drug User Marijuana Smoking Status Reviewed: 12/28/18 Patient has never smoked Exercise Type/Frequency Exercises rarely Allergies, Adverse Reactions, Alerts Active Allergies Reaction Severity Comments Date Penicillin rash 05/08/2016 Acetaminophen 04/23/2018 Medications Active Medications SIG Qnty Indications Ordering Provider Date Bystolic 1 tablet by 30tabs I10 Sergio Russell NP 05/02/2017 10mg Tablets mouth daily Ra Vitamin B-1 3 by mouth every 90tabs F10.20 Sergio Russell NP 07/17/2016 100mg day Tablets Folic Acid take 1 tablet by 60tabs F10.20 Germaine Silver, 07/17/2016 1mg Tablets mouth every M.D. morning Blood Pressure check bp twice 1units I10 Sergio Russell NP 06/26/2016 Monitor Auto weekly at home Inflate Small Cuff Misc B Complex 1 by mouth every Unknown Capsules day Multi For Her once a day otc Unknown Capsules Omeprazole 1 by mouth every 90caps Germaine Silver, 40mg day M.D. Capsules DR History Medications Fluticasone 2 intranasal puffs 16gm J01.90 Germaine 09/10/2018 - Propionate once daily Abbey Sheppard 12/28/2018 50mcg/Act Suspension Levofloxacin one by mouth daily 10tabs J01.90 Sergio Russell NP 09/02/2018 - 500mg for 10 days 09/12/2018 Tablets Azithromycin 2 tabs by mouth on 6tabs J01.90 Germaine 08/20/2018 - 250mg day 1; 1 tab by Abbey Sheppard 09/02/2018 Tablets mouth every day on days 2-5 Ondansetron 1 by mouth every 8 45tabs R11.0 Germaine 01/30/2018 - 4mg Tablets h as needed nausea Abbey Sheppard 04/22/2018 Dispers Desvenlafaxine 1 by mouth every 30tabs Sergio Russell NP 01/09/2018 - Succinate ER morning 02/17/2018 100mg Tablets ER 24HR Clindamycin HCL Sergio Russell NP 08/18/2017 - 150mg 08/18/2017 Capsules Levofloxacin one by mouth daily 10tabs Sergio Russell NP 08/18/2017 - 500mg for 10 days 08/28/2017 Tablets Ativan 1/2-1 tab by mouth 30tabs Sergio Russell NP 08/15/2017 - 1mg Tablets twice daily as 02/17/2018 needed Bystolic 1 by mouth every 90tabs I10 Sergio Russell NP 04/22/2017 - 5mg Tablets day 05/02/2017 Ciprofloxacin HCL take one tablet 14tabs Sergio Russell NP 10/03/2016 - 250mg twice a day for 7 10/03/2016 Tablets days. Nitrofurantoin take one capsule 14caps Sergio Russell NP 10/03/2016 - Macrocrystal twice daily for 7 10/10/2016 100mg days. Capsules Osvaldo take 1 tablet by 60tabs Sergio Russell NP 07/22/2016 - 5mg Tablets mouth once daily 02/12/2017 Omeprazole 1 by mouth once 90caps K21.9 Sergio Russell NP 06/26/2016 - 20mg daily in evening 02/17/[address] Riley 1 tablet by mouth 90tabs I10 Sergio Russell NP 06/26/2016 - 2.5mg Tablets daily 05/02/2017 Ranitidine HCL one tablet once 180tabs K21.9 Sergio Russell NP 06/26/2016 - 150mg daily in Am 02/17/2018 Tablets Slow-Mag two tablets twice 240tabs Sergio Russell NP 05/20/2016 - 71.5-119mg daily (vacation 02/12/[address] gonzalez) Vitamin B-1 2 po qd Unknown - 250mg 09/27/2016 Tablets Doxepin HCL 1 tab by mouth at Unknown - 25mg bedtime ( 02/12/2017 Capsules infrequently ) Jonathan-E 1 a day Unknown - 400mg Tablets 09/10/2018 Magnesium Gluconate 1 by mouth bid Unknown - 04/22/2018 500mg Tablets Zantac 150 Maximum bid Unknown - Strength 09/10/2018 150mg Tablets Carafate take 10 Unknown - 1GM/10ML milliliters by 09/10/2018 Suspension mouth four times a day Escitalopram Oxalate take 1 tablet by Unknown - mouth once daily 12/28/2018 10mg Tablets Amoxicillin take 1 capsule by Unknown - 500mg mouth three times 09/02/2018 Capsules a day Immunizations Description No Information Available Vital Signs Date Vital Result Comment 12/28/2018 8:41am Height 62.75 inches 5'2.75" Weight 100.12 lb Heart Rate 79 /min BP Systolic 134 mmHg BP Diastolic 89 mmHg Body Temperature 98.3 F O2 % BldC Oximetry 98 % BMI (Body Mass Index) 17.9 kg/m2 10/12/2018 10:24am Height 62.75 inches 5'2.75" Weight 97.00 lb Heart Rate 83 /min BP Systolic 134 mmHg BP Diastolic 88 mmHg Body Temperature 97.2 F O2 % BldC Oximetry 99 % BMI (Body Mass Index) 17.3 kg/m2 09/10/2018 3:41pm Height 62.75 inches 5'2.75" Weight 98.00 lb Heart Rate 86 /min BP Systolic Sitting 129 mmHg BP Diastolic Sitting 87 mmHg Body Temperature 98.9 F O2 % BldC Oximetry 97 % BMI (Body Mass Index) 17.5 kg/m2 09/02/2018 12:03pm Height 62.75 inches 5'2.75" Weight 98.00 lb Heart Rate 89 /min BP Systolic 112 mmHg BP Diastolic 80 mmHg O2 % BldC Oximetry 98 % BMI (Body Mass Index) 17.5 kg/m2 08/20/2018 2:20pm Height 62.75 inches 5'2.75" Weight 98.00 lb Heart Rate 80 /min BP Systolic 113 mmHg BP Diastolic 71 mmHg Body Temperature 98.4 F O2 % BldC Oximetry 96 % BMI (Body Mass Index) 17.5 kg/m2 05/20/2018 3:21pm Height 62.75 inches 5'2.75" Weight 98.25 lb Heart Rate 84 /min BP Systolic 120 mmHg BP Diastolic 83 mmHg Respiratory Rate 18 /min Body Temperature 97.4 F O2 % BldC Oximetry 100 % BMI (Body Mass Index) 17.5 kg/m2 04/23/2018 3:52pm Height 62.75 inches 5'2.75" Weight 101.00 lb Heart Rate 76 /min BP Systolic Sitting 103 mmHg BP Diastolic Sitting 74 mmHg O2 % BldC Oximetry 99 % BMI (Body Mass Index) 18.0 kg/m2 02/17/2018 11:20am Weight 102.00 lb Heart Rate 68 /min BP Systolic 150 mmHg BP Diastolic 88 mmHg BP Systolic Sitting 150 mmHg BP Diastolic Sitting 88 mmHg Body Temperature 97.2 F O2 % BldC Oximetry 94 % 02/05/2018 10:16am Height 62.75 inches 5'2.75" Weight 100.00 lb per pt Heart Rate 83 /min BP Systolic 118 mmHg BP Diastolic 70 mmHg O2 % BldC Oximetry 99 % BMI (Body Mass Index) 17.9 kg/m2 01/30/2018 4:29pm Height 62.75 inches 5'2.75" Weight 96.00 lb Heart Rate 87 /min BP Systolic Sitting 112 mmHg BP Diastolic Sitting 88 mmHg O2 % BldC Oximetry 96 % BMI (Body Mass Index) 17.1 kg/m2 01/09/2018 10:36am Weight 102.00 lb per pt Heart Rate 85 /min BP Systolic 134 mmHg BP Diastolic 76 mmHg Body Temperature 96.5 F O2 % BldC Oximetry 97 % 11/25/2017 11:18am Weight 105.00 lb Heart Rate 83 /min BP Systolic 124 mmHg pt states she hasnt drank for about 20 hrs BP Diastolic 72 mmHg pt states she hasnt drank for about 20 hrs Body Temperature 97.3 F O2 % BldC Oximetry 98 % 09/18/2017 9:11am Weight 102.00 lb Heart Rate 52 /min BP Systolic 120 mmHg BP Diastolic 68 mmHg Body Temperature 97.9 F O2 % BldC Oximetry 98 % 08/15/2017 11:04am Weight 102.00 lb Pt reports. Heart Rate 81 /min BP Systolic Sitting 136 mmHg BP Diastolic Sitting 92 mmHg Body Temperature 99.1 F Pain Level 97 07/04/2017 9:06am Heart Rate 77 /min BP Systolic Sitting 138 mmHg BP Diastolic Sitting 86 mmHg O2 % BldC Oximetry 98 % 05/02/2017 1:51pm Heart Rate 84 /min BP Systolic Sitting 150 mmHg BP Diastolic Sitting 98 mmHg BP Systolic Recheck 144 mmHg BP Diastolic Recheck 96 mmHg O2 % BldC Oximetry 98 % 02/12/2017 9:12am Weight 103.00 lb Heart Rate 69 /min BP Systolic Sitting 132 mmHg BP Diastolic Sitting 90 mmHg BP Systolic Recheck 132 mmHg BP Diastolic Recheck 84 mmHg O2 % BldC Oximetry 99 % 12/02/2016 11:40am Weight 107.00 lb shoes Heart Rate 74 /min BP Systolic 138 mmHg BP Diastolic 72 mmHg BP Systolic Recheck 132 mmHg BP Diastolic Recheck 84 mmHg Body Temperature 98.2 F O2 % BldC Oximetry 98 % 10/01/2016 9:48am Weight 103.00 lb Heart Rate 69 /min BP Systolic 120 mmHg BP Diastolic 80 mmHg Body Temperature 98.5 F O2 % BldC Oximetry 96 % 09/27/2016 9:34am Weight 103.00 lb Heart Rate 85 /min BP Systolic Sitting 128 mmHg BP Diastolic Sitting 84 mmHg Body Temperature 98.9 F O2 % BldC Oximetry 99 % 07/17/2016 9:18am Heart Rate 69 /min BP Systolic Sitting 100 mmHg BP Diastolic Sitting 76 mmHg BP Systolic Recheck 104 mmHg BP Diastolic Recheck 74 mmHg O2 % BldC Oximetry 98 % 06/26/2016 9:02am Heart Rate 66 /min BP Systolic Sitting 120 mmHg BP Diastolic Sitting 64 mmHg Respiratory Rate 16 /min Body Temperature 98.5 F O2 % BldC Oximetry 98 % 05/08/2016 3:13pm Weight 102.00 lb Heart Rate 80 /min BP Systolic Sitting 110 mmHg BP Diastolic Sitting 68 mmHg Respiratory Rate 15 /min Body Temperature 98.0 F O2 % BldC Oximetry 98 % Results Test Date Facility Test Result H/L Range Note Comp Metabolic Panel 10/08/2018 [facility] Sodium 130 mmol/L Low 135-[address] [place] [address] [phone] Potassium 4.0 mmol/L N 3.5-5.0 Chloride 94 mmol/L Low 101-111 Co2 Carbon Dioxide 26 mmol/L N 22-32 Anion Gap 10 mmol/L N 2-11 Glucose 89 mg/dL N 70-100 Blood Urea Nitrogen 6 mg/dL N 6-24 Creatinine 0.62 mg/dL N 0.51-0.95 BUN/Creatinine Ratio 9.7 N 8-20 Calcium 8.9 mg/dL N 8.6-10.3 Total Protein 7.2 g/dL N 6.4-8.9 Albumin 4.3 g/dL N 3.2-5.2 Globulin 2.9 g/dL N 2-4 Albumin/Globulin Ratio 1.5 N 1-3 Total Bilirubin 0.60 mg/dL N 0.2-1.0 Alkaline Phosphatase 143 U/L High 34-104 Alt 63 U/L High 7-52 Ast 199 U/L High 13-39 Egfr Non- 101.5 >60 Egfr 122.8 >60 1 CBC Auto 10/08/2018 [facility] White Blood 2.8 10^3/uL Low 3.5 -10.[address] [place] [address] [phone] Red Blood Count 3.36 10^6/uL Low 4.00-5.40 Hemoglobin 12.6 g/dL N 12.0-16.0 Hematocrit 35 % N 35-47 Mean Corpuscular Volume 104 fL High 80-97 Mean Corpuscular Hemoglobin 38 pg High 27-31 Mean Corpuscular HGB Conc 36 g/dL N 31-36 Red Cell Distribution Width 13 % N 10.5-15 Platelet Count 126 10^3/uL Low 150-450 Mean Platelet Volume 7.2 fL Low 7.4-10.4 Abs Neutrophils 1.1 10^3/uL Low 1.5-7.7 Abs Lymphocytes 1.4 10^3/uL N 1.0-4.8 Abs Monocytes 0.2 10^3/uL N 0-0.8 Abs Eosinophils 0 10^3/uL N 0-0.6 Abs Basophils 0.1 10^3/uL N 0-0.2 Abs Nucleated RBC 0 10^3/uL Granulocyte % 39.1 % Lymphocyte % 49.7 % Monocyte % 7.7 % Eosinophil % 1.5 % Basophil % 2.0 % Nucleated Red Blood Cells % 0.1 Laboratory test 10/08/2018 [facility] Lipase 74 U/L N 11.0- 82.0 finding [address] [place] [address] [phone] Comp Metabolic 04/10/2018 [facility] Sodium 129 mmol/L Low 135 -145 Panel [address] [place] [address] [phone] Potassium 3.7 mmol/L N 3.5-5.0 Chloride 93 mmol/L Low 101-111 Co2 Carbon Dioxide 27 mmol/L N 22-32 Anion Gap 9 mmol/L N 2-11 Glucose 101 mg/dL High 70-100 Blood Urea Nitrogen 15 mg/dL N 6-24 Creatinine 0.67 mg/dL N 0.51-0.95 BUN/Creatinine Ratio 22.4 High 8-20 Calcium 8.3 mg/dL Low 8.6-10.3 Total Protein 6.5 g/dL N 6.4-8.9 Albumin 3.6 g/dL N 3.2-5.2 Globulin 2.9 g/dL N 2-4 Albumin/Globulin Ratio 1.2 N 1-3 Total Bilirubin 1.30 mg/dL High 0.2-1.0 Alkaline Phosphatase 120 U/L High 34-104 Alt 99 U/L High 7-52 Ast 363 U/L High 13-39 Egfr Non- 93.2 >60 Egfr 112.7 >60 2 Laboratory test 04/10/2018 [facility] Magnesium 1.3 mg/dL Low 1.9-2.[address] [place] [address] [phone] Laboratory test 02/16/2018 [facility] Magnesium 1.5 mg/dL Low 1.9-2.[address] [place] [address] [phone] Liver Function 02/16/2018 [facility] Total Protein 6.6 g/dL N 6.4-8.[address] [place] [address] [phone] Albumin 3.9 g/dL N 3.2-5.2 Globulin 2.7 g/dL N 2-4 Albumin/Globulin Ratio 1.4 N 1-3 Total Bilirubin 0.50 mg/dL N 0.2-1.0 Direct Bilirubin 0.10 mg/dL N 0.03-0.18 Indirect Bilirubin 0.4 mg/dL N 0.3-1.0 Alkaline Phosphatase 74 U/L N 34-104 Alt 16 U/L N 7-52 Ast 19 U/L N 13-39 Laboratory test 02/16/2018 [facility] Erythrocyte Sed 29 mm/Hr N 0-[address] [place] [address] [phone] TSH (Thyroid Stim Horm) 1.80 mcIU/mL N 0.34-5.60 CBC Auto Diff 02/16/2018 [facility] White Blood 5.6 10^3/uL N 3.5-10.[address] [place] [address] [phone] Red Blood Count 3.49 10^6/uL Low 4.00-5.40 Hemoglobin 12.3 g/dL N 12.0-16.0 Hematocrit 35 % N 35-47 Mean Corpuscular Volume 101 fL High 80-97 Mean Corpuscular Hemoglobin 35 pg High 27-31 Mean Corpuscular HGB Conc 35 g/dL N 31-36 Red Cell Distribution Width 13 % N 10.5-15 Platelet Count 466 10^3/uL High 150-450 Mean Platelet Volume 7.1 um3 Low 7.4-10.4 Abs Neutrophils 3.2 10^3/uL N 1.5-7.7 Abs Lymphocytes 1.4 10^3/uL N 1.0-4.8 Abs Monocytes 0.7 10^3/uL N 0-0.8 Abs Eosinophils 0.3 10^3/uL N 0-0.6 Abs Basophils 0 10^3/uL N 0-0.2 Abs Nucleated RBC 0 10^3/uL Granulocyte % 56.8 % N 38-83 Lymphocyte % 25.1 % N 25-47 Monocyte % 12.1 % High 0-7 Eosinophil % 5.1 % N 0-6 Basophil % 0.9 % N 0-2 Nucleated Red Blood Cells % 0.1 Laboratory test 02/16/2018 [facility] Creatine 35 U/L N 10- [address] Kinase(CK) [place] [address] [phone] Comp Metabolic 02/16/2018 [facility] Sodium 132 Low 135-[address] mmol/[place] [address] [phone] Potassium 4.7 mmol/L N 3.5-5.0 Chloride 97 mmol/L Low 101-111 Co2 Carbon Dioxide 27 mmol/L N 22-32 Anion Gap 8 mmol/L N 2-11 Glucose 96 mg/dL N 70-100 Blood Urea Nitrogen 9 mg/dL N 6-24 Creatinine 0.60 mg/dL N 0.51-0.95 BUN/Creatinine Ratio 15.0 N 8-20 Calcium 10.1 mg/dL N 8.6-10.3 Total Protein 6.6 g/dL N 6.4-8.9 Albumin 3.8 g/dL N 3.2-5.2 Globulin 2.8 g/dL N 2-4 Albumin/Globulin Ratio 1.4 N 1-3 Total Bilirubin 0.50 mg/dL N 0.2-1.0 Alkaline Phosphatase 74 U/L N 34-104 Alt 16 U/L N 7-52 Ast 19 U/L N 13-39 Egfr Non- 105.8 >60 Egfr 136.1 >60 3 Laboratory test 02/02/2018 [facility] Magnesium 1.2 mg/dL Low 1.9-2.[address] [place] [address] [phone] Alcohol < 10 mg/dL N <10 Lactic Acid 4.2 mmol/L High 0.5-2.0 4 Lipase 27 U/L N 11.0-82.0 C Reactive Protein 1.12 mg/L N < 5.00 5 Comp Metabolic Panel 02/02/2018 [facility] Sodium 130 mmol/L Low 139-[address] [place] [address] [phone] Potassium 3.3 mmol/L Low 3.5-5.0 Chloride 91 mmol/L Low 101-111 Co2 Carbon Dioxide 24 mmol/L N 22-32 Anion Gap 15 mmol/L High 2-11 Glucose 113 mg/dL High 70-100 Blood Urea Nitrogen 8 mg/dL N 6-24 Creatinine 0.64 mg/dL N 0.51-0.95 BUN/Creatinine Ratio 12.5 N 8-20 Calcium 8.1 mg/dL Low 8.6-10.3 Total Protein 6.0 g/dL Low 6.4-8.9 Albumin 3.3 g/dL N 3.2-5.2 Globulin 2.7 g/dL N 2-4 Albumin/Globulin Ratio 1.2 N 1-3 Total Bilirubin 2.70 mg/dL High 0.2-1.0 Alkaline Phosphatase 124 U/L High 34-104 Alt 139 U/L High 7-52 Ast 420 U/L High 13-39 Egfr Non- 98.2 >60 Egfr 126.3 >60 6 CBC Auto Diff 02/02/2018 [facility] White Blood 7.0 10^3/uL N 3.5-10.[address] [place] [address] [phone] Red Blood Count 3.47 10^6/uL Low 4.0-5.4 Hemoglobin 12.3 g/dL N 12.0-16.0 Hematocrit 34 % Low 35-47 Mean Corpuscular Volume 98 fL High 80-97 Mean Corpuscular Hemoglobin 35 pg High 27-31 Mean Corpuscular HGB Conc 36 g/dL N 31-36 Red Cell Distribution Width 13 % N 10.5-15 Platelet Count 138 10^3/uL Low 150-450 Mean Platelet Volume 7.0 um3 Low 7.4-10.4 Abs Neutrophils 6.5 10^3/uL N 1.5-7.7 Abs Lymphocytes 0.4 10^3/uL Low 1.0-4.8 Abs Monocytes 0.2 10^3/uL N 0-0.8 Abs Eosinophils 0 10^3/uL N 0-0.6 Abs Basophils 0 10^3/uL N 0-0.2 Abs Nucleated RBC 0 10^3/uL Granulocyte % 91.6 % High 38-83 Lymphocyte % 5.1 % Low 25-47 Monocyte % 2.7 % N 0-7 Eosinophil % 0.1 % N 0-6 Basophil % 0.5 % N 0-2 Nucleated Red Blood Cells % 0 Laboratory test 02/02/2018 [facility] Magnesium 1.8 mg/dL Low 1.9-2.7 finding [address] [place] [address] [phone] Lactic Acid 0.9 mmol/L N 0.5-2.0 7 TSH (Thyroid Stim Horm) 3.49 mcIU/mL N 0.34-5.60 Comp Metabolic Panel 02/02/2018 [facility] Sodium 128 mmol/L Low 139-145 [address] [place] [address] [phone] Potassium 3.3 mmol/L Low 3.5-5.0 Chloride 91 mmol/L Low 101-111 Co2 Carbon Dioxide 26 mmol/L N 22-32 Anion Gap 11 mmol/L N 2-11 Glucose 132 mg/dL High 70-100 Blood Urea Nitrogen 7 mg/dL N 6-24 Creatinine 0.66 mg/dL N 0.51-0.95 BUN/Creatinine Ratio 10.6 N 8-20 Calcium 8.1 mg/dL Low 8.6-10.3 Total Protein 6.5 g/dL N 6.4-8.9 Albumin 3.5 g/dL N 3.2-5.2 Globulin 3.0 g/dL N 2-4 Albumin/Globulin Ratio 1.2 N 1-3 Total Bilirubin 3.20 mg/dL High 0.2-1.0 Alkaline Phosphatase 152 U/L High 34-104 Alt 152 U/L High 7-52 Ast 438 U/L High 13-39 Egfr Non- 94.8 >60 Egfr 121.9 >60 8 Inr/Protime 02/02/2018 [facility] Inr 0.95 N 0.77-1.[address] [place] [address] [phone] Urine Drug SCR 02/02/2018 [facility] Amphetamine Ur None None Detect ED & Pain [address] [place] [address] [phone] Barbiturates Urine Screen None Detected None Detect Benzodiazepine Urine Screen None Detected None Detect Urine Cannabinoids Screen None Detected None Detect Urine Cocaine Screen None Detected None Detect Urine Opiates Screen None Detected None Detect Urine Phencyclidine Screen None Detected None Detect 9 Laboratory 11/30/2017 [facility] Alcohol 156 mg/dL High <10 test finding [address] [place] [address] [phone] Laboratory 11/25/2017 [facility] HIV 1&2 AB Nonreactive Nonreactive [address] [place] [address] Referred [phone] Liver 11/25/2017 [facility] Total 7.4 g/dL N 6.4-8.[address] [place] [address] [phone] Albumin 4.2 g/dL N 3.2-5.2 Globulin 3.2 g/dL N 2-4 Albumin/Globulin Ratio 1.3 N 1-3 Total Bilirubin 0.70 mg/dL N 0.2-1.0 Direct Bilirubin 0.20 mg/dL High 0.03-0.18 Indirect Bilirubin 0.5 mg/dL N 0.3-1.0 Alkaline Phosphatase 69 U/L N 34-104 Alt 21 U/L N 7-52 Ast 50 U/L High 13-39 Basic Metabolic 11/25/2017 [facility] Sodium 132 mmol/L Low 139-[address] [place] [address] [phone] Potassium 3.6 mmol/L N 3.5-5.0 Chloride 92 mmol/L Low 101-111 Co2 Carbon Dioxide 30 mmol/L N 22-32 Anion Gap 10 mmol/L N 2-11 Glucose 116 mg/dL High 70-100 Blood Urea Nitrogen 5 mg/dL Low 6-24 Creatinine 0.56 mg/dL N 0.51-0.95 BUN/Creatinine Ratio 8.9 N 8-20 Calcium 9.2 mg/dL N 8.6-10.3 Egfr Non- 114.6 >60 Egfr 147.4 >60 11 CBC Auto 11/25/2017 [facility] White Blood 3.0 10^3/uL Low 3.5 -10.[address] [place] [address] [phone] Red Blood Count 3.67 10^6/uL Low 4.0-5.4 Hemoglobin 12.6 g/dL N 12.0-16.0 Hematocrit 36 % N 35-47 Mean Corpuscular Volume 98 fL High 80-97 Mean Corpuscular Hemoglobin 34 pg High 27-31 Mean Corpuscular HGB Conc 35 g/dL N 31-36 Red Cell Distribution Width 14 % N 10.5-15 Platelet Count 126 10^3/uL Low 150-450 Mean Platelet Volume 7.2 um3 Low 7.4-10.4 Abs Neutrophils 1.6 10^3/uL N 1.5-7.7 Abs Lymphocytes 1.0 10^3/uL N 1.0-4.8 Abs Monocytes 0.3 10^3/uL N 0-0.8 Abs Eosinophils 0 10^3/uL N 0-0.6 Abs Basophils 0 10^3/uL N 0-0.2 Abs Nucleated RBC 0 10^3/uL Granulocyte % 54.5 % N 38-83 Lymphocyte % 31.9 % N 25-47 Monocyte % 10.9 % High 0-7 Eosinophil % 1.6 % N 0-6 Basophil % 1.1 % N 0-2 Nucleated Red Blood Cells % 0.1 Laboratory test finding 11/25/2017 [facility] GGTP 273 U/L High 9-64.[address] [place] [address] [phone] Magnesium 1.7 mg/dL Low 1.9-2.7 Basic Metabolic 09/23/2017 [facility] Sodium 131 mmol/L Low 133-[address] [place] [address] [phone] Potassium 4.7 mmol/L N 3.5-5.0 Chloride 95 mmol/L Low 101-111 Co2 Carbon Dioxide 29 mmol/L N 22-32 Anion Gap 7 mmol/L N 2-11 Glucose 65 mg/dL Low 70-100 Blood Urea Nitrogen 6 mg/dL N 6-24 Creatinine 0.59 mg/dL N 0.51-0.95 BUN/Creatinine Ratio 10.2 N 8-20 Calcium 9.8 mg/dL N 8.6-10.3 Egfr Non- 107.9 >60 Egfr 138.8 >60 12 Laboratory test 09/23/2017 [facility] Magnesium 1.7 mg/dL Low 1.9-2.7 finding [address] [place] [address] [phone] Laboratory test 09/23/2017 [facility] Cortisol 13.15 [address] g/[place] [address] [phone] Lipid Profile 09/23/2017 [facility] Triglycerides 189 mg/dL 14 (Trig/Chol/HDL) [address] [place] [address] [phone] Cholesterol 214 mg/dL 15 HDL Cholesterol 72.8 mg/dL 16 LDL Cholesterol 103 mg/dL 17 Comp Metabolic Panel 09/10/2017 [facility] Sodium 122 mmol/L Low 133-145 [address] [place] [address] [phone] Potassium 3.4 mmol/L Low 3.5-5.0 Chloride 89 mmol/L Low 101-111 Co2 Carbon Dioxide 26 mmol/L N 22-32 Anion Gap 7 mmol/L N 2-11 Glucose 127 mg/dL High 70-100 Blood Urea Nitrogen 7 mg/dL N 6-24 Creatinine 0.77 mg/dL N 0.51-0.95 BUN/Creatinine Ratio 9.1 N 8-20 Calcium 9.4 mg/dL N 8.6-10.3 Total Protein 6.7 g/dL N 6.4-8.9 Albumin 3.7 g/dL N 3.2-5.2 Globulin 3.0 g/dL N 2-4 Albumin/Globulin Ratio 1.2 N 1-3 Total Bilirubin 0.80 mg/dL N 0.2-1.0 Alkaline Phosphatase 81 U/L N 34-104 Alt 51 U/L N 7-52 Ast 71 U/L High 13-39 Egfr Non- 79.3 >60 Egfr 102.0 >60 18 Laboratory test 09/10/2017 [facility] Magnesium 1.5 mg/dL Low 1.9-2.[address] [place] [address] [phone] Lipase 14 U/L N 11.0-82.0 Alcohol < 10 mg/dL N <10 TSH (Thyroid Stim Horm) 1.17 mcIU/mL N 0.34-5.60 Laboratory test finding 09/10/2017 [facility] Ammonia 47 ?mol/L N 16-[address] [place] [address] [phone] Lactic Acid 1.4 mmol/L N 0.5-2.0 19 Troponin-I (TnI) 0.00 ng/mL <0.04 CBC Auto Diff 09/10/2017 [facility] White Blood 4.7 10^3/uL N 3.5-10.[address] [place] [address] [phone] Red Blood Count 3.41 10^6/uL Low 4.0-5.4 Hemoglobin 12.2 g/dL N 12.0-16.0 Hematocrit 34 % Low 35-47 Mean Corpuscular Volume 100 fL High 80-97 Mean Corpuscular Hemoglobin 36 pg High 27-31 Mean Corpuscular HGB Conc 36 g/dL N 31-36 Red Cell Distribution Width 13 % N 10.5-15 Platelet Count 168 10^3/uL N 150-450 Mean Platelet Volume 7 um3 Low 7.4-10.4 Abs Neutrophils 3.0 10^3/uL N 1.5-7.7 Abs Lymphocytes 1.0 10^3/uL N 1.0-4.8 Abs Monocytes 0.7 10^3/uL N 0-0.8 Abs Eosinophils 0.1 10^3/uL N 0-0.6 Abs Basophils 0 10^3/uL N 0-0.2 Abs Nucleated RBC 0 10^3/uL Granulocyte % 62.6 % N 38-83 Lymphocyte % 21.0 % Low 25-47 Monocyte % 13.8 % High 1-9 Eosinophil % 1.8 % N 0-6 Basophil % 0.8 % N 0-2 Nucleated Red Blood Cells % 0.1 Basic Metabolic 09/10/2017 [facility] Sodium 124 mmol/L Low 133-[address] [place] [address] [phone] Potassium 4.1 mmol/L N 3.5-5.0 Chloride 94 mmol/L Low 101-111 Co2 Carbon Dioxide 22 mmol/L N 22-32 Anion Gap 8 mmol/L N 2-11 Glucose 109 mg/dL High 70-100 Blood Urea Nitrogen 7 mg/dL N 6-24 Creatinine 0.59 mg/dL N 0.51-0.95 BUN/Creatinine Ratio 11.9 N 8-20 Calcium 8.4 mg/dL Low 8.6-10.3 Egfr Non- 107.9 >60 Egfr 138.8 >60 20 Urine Drug 09/10/2017 [facility] Amphetamine Ur None Detected None Detect SCR ED & [address] [place] [address] [phone] Barbiturates Urine Screen None Detected None Detect Benzodiazepine Urine Screen None Detected None Detect Urine Cannabinoids Screen Presumptive Posi <SEE NOTE> Abnormal None Detect 21 Urine Cocaine Screen None Detected None Detect Urine Opiates Screen None Detected None Detect Urine Phencyclidine Screen None Detected None Detect 22 Urinalysis Profile 09/10/2017 [facility] Urine Color [place] [address] [place] [address] [phone] Urine Appearance Clear Urine Specific [place] 1.005 Low 1.010-1.030 Urine pH 7.0 N 5-9 Urine Urobilinogen Negative Negative Urine Ketones Negative Negative Urine Protein Negative Negative Urine Leukocytes Negative Negative Urine Blood Negative Negative Urine Nitrite Negative Negative Urine Bilirubin Negative Negative Urine Glucose Negative Negative CBC Auto Diff 08/28/2017 [facility] White Blood 6.7 10^3/uL N 3.5-10.[address] [place] [address] [phone] Red Blood Count 3.42 10^6/uL Low 4.0-5.4 Hemoglobin 12.0 g/dL N 12.0-16.0 Hematocrit 34 % Low 35-47 Mean Corpuscular Volume 101 fL High 80-97 Mean Corpuscular Hemoglobin 35 pg High 27-31 Mean Corpuscular HGB Conc 35 g/dL N 31-36 Red Cell Distribution Width 13 % N 10.5-15 Platelet Count 143 10^3/uL Low 150-450 Mean Platelet Volume 7 um3 Low 7.4-10.4 Abs Neutrophils 4.5 10^3/uL N 1.5-7.7 Abs Lymphocytes 1.5 10^3/uL N 1.0-4.8 Abs Monocytes 0.5 10^3/uL N 0-0.8 Abs Eosinophils 0.1 10^3/uL N 0-0.6 Abs Basophils 0.1 10^3/uL N 0-0.2 Abs Nucleated RBC 0 10^3/uL Granulocyte % 67.0 % N 38-83 Lymphocyte % 22.6 % Low 25-47 Monocyte % 7.7 % N 1-9 Eosinophil % 1.9 % N 0-6 Basophil % 0.8 % N 0-2 Nucleated Red Blood Cells % 0.1 Comp Metabolic Panel 08/28/2017 [facility] Sodium 130 mmol/L Low 133-145 [address] [place] [address] [phone] Potassium 3.8 mmol/L N 3.5-5.0 Chloride 93 mmol/L Low 101-111 Co2 Carbon Dioxide 30 mmol/L N 22-32 Anion Gap 7 mmol/L N 2-11 Glucose 77 mg/dL N 70-100 Blood Urea Nitrogen 8 mg/dL N 6-24 Creatinine 0.51 mg/dL N 0.51-0.95 BUN/Creatinine Ratio 15.7 N 8-20 Calcium 8.6 mg/dL N 8.6-10.3 Total Protein 7.0 g/dL N 6.4-8.9 Albumin 4.0 g/dL N 3.2-5.2 Globulin 3.0 g/dL N 2-4 Albumin/Globulin Ratio 1.3 N 1-3 Total Bilirubin 0.70 mg/dL N 0.2-1.0 Alkaline Phosphatase 89 U/L N 34-104 Alt 37 U/L N 7-52 Ast 131 U/L High 13-39 Egfr Non- 127.6 >60 Egfr 164.2 >60 23 Laboratory test 05/29/2017 [facility] Magnesium 1.8 mg/dL Low 1.9-2.7 finding [address] [place] [address] [phone] Comp Metabolic 05/29/2017 [facility] Sodium 131 mmol/L Low 133 -145 Panel [address] [place] [address] [phone] Potassium 3.9 mmol/L N 3.5-5.0 Chloride 95 mmol/L Low 101-111 Co2 Carbon Dioxide 29 mmol/L N 22-32 Anion Gap 7 mmol/L N 2-11 Glucose 86 mg/dL N 70-100 Blood Urea Nitrogen 8 mg/dL N 6-24 Creatinine 0.63 mg/dL N 0.51-0.95 BUN/Creatinine Ratio 12.7 N 8-20 Calcium 8.7 mg/dL N 8.6-10.3 Total Protein 7.0 g/dL N 6.4-8.9 Albumin 4.2 g/dL N 3.2-5.2 Globulin 2.8 g/dL N 2-4 Albumin/Globulin Ratio 1.5 N 1-3 Total Bilirubin 0.80 mg/dL N 0.2-1.0 Alkaline Phosphatase 78 U/L N 34-104 Alt 30 U/L N 7-52 Ast 76 U/L High 13-39 Egfr Non- 100.0 N >60 Egfr 128.6 N >60 24 CBC Auto Diff 02/07/2017 [facility] White Blood 4.0 10^3/uL N 3.5-10.[address] [place] [address] [phone] Red Blood Count 3.68 10^6/uL Low 4.0-5.4 Hemoglobin 12.8 g/dL N 12.0-16.0 Hematocrit 37 % N 35-47 Mean Corpuscular Volume 100 fL High 80-97 Mean Corpuscular Hemoglobin 35 pg High 27-31 Mean Corpuscular HGB Conc 35 g/dL N 31-36 Red Cell Distribution Width 13 % N 10.5-15 Platelet Count 196 10^3/uL N 150-450 Mean Platelet Volume 7 um3 Low 7.4-10.4 Abs Neutrophils 2.2 10^3/uL N 1.5-7.7 Abs Lymphocytes 1.3 10^3/uL N 1.0-4.8 Abs Monocytes 0.5 10^3/uL N 0-0.8 Abs Eosinophils 0.1 10^3/uL N 0-0.6 Abs Basophils 0.1 10^3/uL N 0-0.2 Abs Nucleated RBC 0 10^3/uL N Granulocyte % 53.7 % N 38-83 Lymphocyte % 31.4 % N 25-47 Monocyte % 11.4 % High 1-9 Eosinophil % 2.3 % N 0-6 Basophil % 1.2 % N 0-2 Nucleated Red Blood Cells % 0 N Laboratory test 02/07/2017 [facility] Ferritin 249.5 ng/mL N 11-[address] [place] [address] [phone] Magnesium 1.8 mg/dL Low 1.9-2.7 Comp Metabolic Panel 02/07/2017 [facility] Sodium 127 mmol/L Low 133-[address] [place] [address] [phone] Potassium 4.3 mmol/L N 3.5-5.0 Chloride 91 mmol/L Low 101-111 Co2 Carbon Dioxide 29 mmol/L N 22-32 Anion Gap 7 mmol/L N 2-11 Glucose 66 mg/dL Low 70-100 Blood Urea Nitrogen 6 mg/dL N 6-24 Creatinine 0.57 mg/dL N 0.51-0.95 BUN/Creatinine Ratio 10.5 N 8-20 Calcium 9.4 mg/dL N 8.6-10.3 Total Protein 7.2 g/dL N 6.4-8.9 Albumin 4.3 g/dL N 3.2-5.2 Globulin 2.9 g/dL N 2-4 Albumin/Globulin Ratio 1.5 N 1-3 Total Bilirubin 0.70 mg/dL N 0.2-1.0 Alkaline Phosphatase 60 U/L N 34-104 Alt 27 U/L N 7-52 Ast 62 U/L High 13-39 Egfr Non- 112.7 N >60 Egfr 145.0 N >60 25 Laboratory test 12/17/2016 [facility] Occult Blood - Neg x 3 finding Stool CBC Auto Diff 10/01/2016 [facility] White Blood 12.2 High 3.5- 10.[address] Count 10^3/[place] [address] [phone] Red Blood Count 3.35 10^6/uL Low 4.0-5.4 Hemoglobin 11.4 g/dL Low 12.0-16.0 Hematocrit 32 % Low 35-47 Mean Corpuscular Volume 97 fL N 80-97 Mean Corpuscular Hemoglobin 34 pg High 27-31 Mean Corpuscular HGB Conc 35 g/dL N 31-36 Red Cell Distribution Width 13 % N 10.5-15 Platelet Count 447 10^3/uL N 150-450 Mean Platelet Volume 7 um3 Low 7.4-10.4 Abs Neutrophils 8.2 10^3/uL High 1.5-7.7 Abs Lymphocytes 2.3 10^3/uL N 1.0-4.8 Abs Monocytes 1.5 10^3/uL High 0-0.8 Abs Eosinophils 0.1 10^3/uL N 0-0.6 Abs Basophils 0.1 10^3/uL N 0-0.2 Abs Nucleated RBC 0 10^3/uL N Granulocyte % 67.0 % N 38-83 Lymphocyte % 18.7 % Low 25-47 Monocyte % 12.3 % High 1-9 Eosinophil % 0.9 % N 0-6 Basophil % 1.1 % N 0-2 Nucleated Red Blood Cells % 0 N Ua Routine 10/01/2016 [facility] Ua Specific [place] 1.015 Ua PH 5 Ua Color yellow Ua Appera cloudy Ua WBC small Ua Protein 30+ Ua Glucose -- Ua Ketones -- Ua Bilirubin small Ua Urobilinogen normal Ua Nitrite -- Ua Occult Blood large Urine Culture And 10/01/2016 [facility] Urine Culture SEE RESULT [address] [place] [address] [phone] Laboratory test 10/01/2016 [facility] Folic Acid > 20.00 N > 3.[address] (Folate) ng/[place] [address] [phone] Vitamin B12 > 1450 pg/mL High 180-914 27 Ferritin 407.6 ng/mL High 11-307 Iron & Iron Binding 10/01/2016 [facility] Iron 17 g/dL Low 50-[address] [place] [address] [phone] Unsaturated Iron Binding 243 g/dL N Total Iron Binding Capacity 260 g/dL N 250-450 % Iron Saturation 7 % Low 15-55 Comp Metabolic Panel 10/01/2016 [facility] Sodium 126 mmol/L Low 133-[address] [place] [address] [phone] Potassium 4.3 mmol/L N 3.5-5.0 Chloride 93 mmol/L Low 101-111 Co2 Carbon Dioxide 25 mmol/L N 22-32 Anion Gap 8 mmol/L N 2-11 Glucose 88 mg/dL N 70-100 Blood Urea Nitrogen 11 mg/dL N 6-24 Creatinine 0.72 mg/dL N 0.51-0.95 BUN/Creatinine Ratio 15.3 N 8-20 Calcium 8.9 mg/dL N 8.6-10.3 Total Protein 6.8 g/dL N 6.4-8.9 Albumin 3.5 g/dL N 3.2-5.2 Globulin 3.3 g/dL N 2-4 Albumin/Globulin Ratio 1.1 N 1-3 Total Bilirubin 0.40 mg/dL N 0.2-1.0 Alkaline Phosphatase 64 U/L N 34-104 Alt 8 U/L N 7-52 Ast 13 U/L N 13-39 Egfr Non- 86.1 N >60 Egfr 110.7 N >60 28 Laboratory test 08/09/2016 [facility] TSH (Thyroid 0.68 mcIU/mL N 0.34-5.[address] Stim [place]) [place] [address] [phone] Mercury Blood 8 ng/mL N 0-9 29 Basic Metabolic 08/09/2016 [facility] Sodium 132 mmol/L Low 133-[address] [place] [address] [phone] Potassium 4.1 mmol/L N 3.5-5.0 Chloride 95 mmol/L Low 101-111 Co2 Carbon Dioxide 28 mmol/L N 22-32 Anion Gap 9 mmol/L N 2-11 Glucose 95 mg/dL N 70-100 Blood Urea Nitrogen 5 mg/dL Low 6-24 Creatinine 0.61 mg/dL N 0.51-0.95 BUN/Creatinine Ratio 8.2 N 8-20 Calcium 9.6 mg/dL N 8.6-10.3 Egfr Non- 104.2 N >60 Egfr 134.1 N >60 30 Basic Metabolic 07/16/2016 [facility] Sodium 125 mmol/L Low 133-[address] [place] [address] [phone] Potassium 4.2 mmol/L N 3.5-5.0 Chloride 90 mmol/L Low 101-111 Co2 Carbon Dioxide 28 mmol/L N 22-32 Anion Gap 7 mmol/L N 2-11 Glucose 80 mg/dL N 70-100 Blood Urea Nitrogen 5 mg/dL Low 6-24 Creatinine 0.59 mg/dL N 0.51-0.95 BUN/Creatinine Ratio 8.5 N 8-20 Calcium 9.7 mg/dL N 8.6-10.3 Egfr Non- 108.3 N >60 Egfr 139.3 N >60 31 Laboratory test 07/16/2016 [facility] Magnesium 1.8 mg/dL Low 1.9-2.7 finding [address] [place] [address] [phone] Lipid Profile 05/18/2016 [facility] Triglycerides 144 mg/dL N 32 (Trig/Chol/HDL) [address] [place] [address] [phone] Cholesterol 240 mg/dL N 33 HDL Cholesterol 103.6 mg/dL N 34 LDL Cholesterol 108 mg/dL N 35 Laboratory test 05/18/2016 [facility] Magnesium 1.6 mg/dL Low 1.9-2.7 36 finding [address] [place] [address] [phone] Comp Metabolic 05/18/2016 [facility] Sodium 130 mmol/L Low 133 -145 Panel [address] [place] [address] [phone] Potassium 4.1 mmol/L N 3.5-5.0 Chloride 93 mmol/L Low 101-111 Co2 Carbon Dioxide 30 mmol/L N 22-32 Anion Gap 7 mmol/L N 2-11 Glucose 78 mg/dL N 70-100 Blood Urea Nitrogen 7 mg/dL N 6-24 Creatinine 0.63 mg/dL N 0.51-0.95 BUN/Creatinine Ratio 11.1 N 8-20 Calcium 9.6 mg/dL N 8.6-10.3 Total Protein 7.5 g/dL N 6.4-8.9 Albumin 4.4 g/dL N 3.2-5.2 Globulin 3.1 g/dL N 2-4 Albumin/Globulin Ratio 1.4 N 1-3 Total Bilirubin 0.90 mg/dL N 0.2-1.0 Alkaline Phosphatase 66 U/L N 34-104 Alt 20 U/L N 7-52 Ast 39 U/L N 13-39 Egfr Non- 100.9 N >60 Egfr 129.7 N >60 37 CBC Auto Diff 05/18/2016 [facility] White Blood 4.1 10^3/uL N 3.5-10.[address] [place] [address] [phone] Red Blood Count 3.91 10^6/uL Low 4.0-5.4 Hemoglobin 13.6 g/dL N 12.0-16.0 Hematocrit 39 % N 35-47 Mean Corpuscular Volume 99 fL High 80-97 Mean Corpuscular Hemoglobin 35 pg High 27-31 Mean Corpuscular HGB Conc 35 g/dL N 31-36 Red Cell Distribution Width 12 % N 10.5-15 Platelet Count 264 10^3/uL N 150-450 Mean Platelet Volume 7 um3 Low 7.4-10.4 Abs Neutrophils 2.1 10^3/uL N 1.5-7.7 Abs Lymphocytes 1.4 10^3/uL N 1.0-4.8 Abs Monocytes 0.4 10^3/uL N 0-0.8 Abs Eosinophils 0.1 10^3/uL N 0-0.6 Abs Basophils 0.1 10^3/uL N 0-0.2 Abs Nucleated RBC 0 10^3/uL N Granulocyte % 51.2 % N 38-83 Lymphocyte % 34.6 % N 25-47 Monocyte % 9.6 % High 1-9 Eosinophil % 3.3 % N 0-6 Basophil % 1.3 % N 0-2 Nucleated Red Blood Cells % 0 N 1 Because ethnic data is not always [...] 5 Kidney failure <15 (or dialysis) 4 Critical Result LACT:4.2 Called to [id number] at: 18:08:47 by:[id number] Read back by:LAZ [facility] Severe Sepsis and Septic Shock Management Bundle Measure requires all lactic acids initially measuring >2.0 mmol/L be repeated. 5 Acute inflammation: >10.00 6 Because ethnic data is not always readily [...] 15-29 5 Kidney failure <15 (or dialysis) 7 [facility] Severe Sepsis and Septic Shock Management Bundle Measure requires all lactic acids initially measuring >2.0 mmol/L be repeated. 8 Because ethnic data is not always [...] 5 Kidney failure <15 (or dialysis) 9 The urine specimen was tested at the listed cutoffs: Drug class test level (ng/mL) Amphetamines 500 Barbiturates 200 Benzodiazepine metabolites 200 Cocaine metabolites 150 Cannabinoids 50 Opiates 300 Pcp 25 Specimen was received without chain of custody. Results should be used for medical purposes only. 10 It is recognized that currently available assays [...] 95% confidence interval of 99.78 to 99.96%. 11 Because ethnic data is not always [...] 5 Kidney failure <15 (or dialysis) 12 Because ethnic data is not always [...] 5 Kidney failure <15 (or dialysis) 13 AM 8.7-22.4 PM <10 14 Desirable: <150 Borderline High: 150-199 High: 200-499 Very High: >500 15 Desirable: <200 Borderline High: 200-239 High: >239 16 Low: <40 Desirable: 40-60 High: >60 17 Desirable: <100 Near Optimal: 100-129 Borderline High: 130-159 High: 160-189 Very High: >189 18 Because ethnic data is not always [...] 5 Kidney failure <15 (or dialysis) 19 [facility] Severe Sepsis and Septic Shock Management Bundle Measure requires all lactic acids initially measuring >2.0 mmol/L be repeated. 20 Because ethnic data is not always [...] 5 Kidney failure <15 (or dialysis) 21 Presumptive Positive Presumptive positive results are unconfirmed. 22 The urine specimen was tested at the listed cutoffs: Drug class test level (ng/mL) Amphetamines 500 Barbiturates 200 Benzodiazepine metabolites 200 Cocaine metabolites 150 Cannabinoids 50 Opiates 300 Pcp 25 Specimen was received without chain of custody. Results should be used for medical purposes only. 23 Because ethnic data is not always readily [...] 15-29 5 Kidney failure <15 (or dialysis) 24 Because ethnic data is not always readily [...] 15-29 5 Kidney failure <15 (or dialysis) 25 Because ethnic data is not always readily [...] 15-29 5 Kidney failure <15 (or dialysis) 26 SEE RESULT BELOW Name: KATELYNN SAMSON : [address]: Sergio Russell NP Acct: [id number] Unit: [id number] AGE: 51 Location: [facility] Re10/01/16 SEX: F Status: REG REF SPEC: [id number] FABIANO: 10/01/16-[address]: Sergio Russell NP REQ: [id number] RECD: 10/01/16 STATUS: COMP _ SOURCE: URINE SPDESC: ORDERED: Urine Culture COMMENTS: [id number] Urine Source: Random Procedure Result Reported Site Urine Culture Final 10/03/16- 0741 ML Organism 1 ESCHERICHIA COLI [place] Count >100,000 (Many) CFU/ML 1. ESCHERICHIA COLI [...] antibiotic reporting. * ML - MAIN LAB ([facility]) . END OF REPORT * ML=Testing performed at Main Lab DEPARTMENT OF PATHOLOGY, [address] [place] [address] Mele Corey M.D. Director [facility] # [id number] 27 Normal Range 180 to 914 Indeterminate Range 145 to 180 Deficient Range <145 28 Because ethnic data is not always [...] 15-29 5 Kidney failure <15 (or dialysis) 29 ADDITIONAL INFORMATION This test was developed and its performance characteristics determined by [facility] in a manner consistent with CLIA requirements. This test has not been cleared or approved by the U.S. Food and Drug Administration. Test Performed by: [facility] [place] [address] [employer] Operator Helper: Ollie Oliveira II, M.D., Ph.D. 30 Because ethnic data is not always readily [...] 15-29 5 Kidney failure <15 (or dialysis) 31 Because ethnic data is not always readily [...] 15-29 5 Kidney failure <15 (or dialysis) 32 Desirable <150 Borderline high 150-199 High 200-499 Very High >500 33 Desirable <200 Borderline high 200-239 High >239 34 Low <40 Desirable: 40-60 High: >60 35 Desirable: <100 mg/dL Near Optimal: 100-129 mg/dL Borderline High: 130-159 mg/dL High: 160-189 mg/dL Very High: >189 mg/dL 36 FASTING 10 HOUR 37 Because ethnic data is not always readily [...] Kidney failure <15 (or dialysis) Procedures Date Code Description Status 01/30/2018 25121 EKG Tracing & Interpretation Completed 09/11/2017 90812 ECHO Transthorasic Realtime 2D W Doppler & Color Flow Completed Hosp 07/28/2017 [id number] Mammogram Completed 05/31/2016 [id number] Mammogram Completed Encounters Type Date Location Provider Dx Diagnosis Office Visit 10/12/2018 [facility] Sergio Russell NP R19.7 Diarrhea, 10:20a Medicine unspecified J01.90 Acute sinusitis, unspecified F10.188 Alcohol abuse with other alcohol-induced disorder Office Visit 09/10/2018 3:40p [facility] Germaine J01.90 Acute sinusitis, Medicine Abbey Sheppard unspecified R19.7 Diarrhea, unspecified R11.2 Nausea with vomiting, unspecified Office Visit 09/02/2018 11:40a [facility] Sergio Russell, [employer] SUPERINTENDENT J01.90 Acute sinusitis, Medicine unspecified Office Visit 08/20/2018 2:00p [facility] Germaine J01.90 Acute sinusitis, Bob Sheppard M.D. unspecified R11.0 Nausea Office Visit 05/20/2018 3:00p [facility] Gastroenterology Amor Johnson, R12 Heartburn E83.42 Hypomagnesemia K70.10 Alcoholic hepatitis without ascites K59.00 Constipation, unspecified F10.188 Alcohol abuse with other alcohol-induced disorder Office Visit 04/23/2018 3:40p [facility] Germaine Sheppard R74.8 Abnormal levels Bob Potter of other serum enzymes R12 Heartburn Office Visit 02/17/2018 11:20a [facility] Germaine E83.42 Hypomagnesemia Bob Sheppard M.D. R74.8 Abnormal levels of other serum enzymes F10.20 Alcohol dependence, uncomplicated I10 Essential (primary) hypertension Office Visit 02/05/2018 10:20a [facility] Sergio Russell, F10.20 Alcohol dependence, Medicine [employer] SUPERINTENDENT uncomplicated K70.10 Alcoholic hepatitis without ascites E83.42 Hypomagnesemia Office Visit 02/02/2018 11:12a [facility] Javy K70.10 Alcoholic Assoc,jurgen Resendiz MD hepatitis Hospitalists without ascites F10.10 Alcohol abuse, uncomplicated E87.8 Oth disorders of electrolyte and fluid balance, NEC R07.89 Other chest pain Office Visit 01/30/2018 4:20p [facility] Germaine R07.9 Chest pain, Bob Sheppard M.D. unspecified M79.1 Myalgia F10.20 Alcohol dependence, uncomplicated R11.0 Nausea I44.0 Atrioventricular block, first degree Office Visit 01/09/2018 10:40a [facility] Sergio Russell, F33.0 Major depressive Medicine [employer] disorder, recurrent, mild F10.10 Alcohol abuse, uncomplicated Office Visit 11/25/2017 11:20a [facility] Sergiofelix Russell, F10.10 Alcohol abuse, Medicine [employer]PERINTENDENT uncomplicated F33.0 Major depressive disorder, recurrent, mild Z11.4 Encounter for screening for human immunodeficiency virus Office Visit 09/18/2017 9:00a [facility] Sergio Drew, F10.10 Alcohol abuse, Medicine [employer]ENT uncomplicated E83.42 Hypomagnesemia R55 Syncope and collapse E87.1 Hypo-osmolality and hyponatremia Z13.220 Encounter for screening for lipoid disorders Office 09/10/2017 [facility] E87.1 Hypo-osmolality and Visit 7:50a Assoc,pc Jesse, [employer]PERINTENDENT hyponatremia Hospitalists I10 Essential (primary) hypertension F10.10 Alcohol abuse, uncomplicated Office Visit 08/15/2017 10:40a [facility] Sergio Drew, I10 Essential ( primary) Medicine [employer] hypertension J01.90 Acute sinusitis, unspecified F32.89 Other specified depressive episodes Office Visit 07/04/2017 9:00a [facility] Sergio Drew, I10 Essential ( primary) Medicine [employer] hypertension R68.84 Jaw pain Office Visit 05/02/2017 1:40p [facility] Sergio Drew, I10 Essential ( primary) Medicine [employer]ENT hypertension Z12.31 Encntr screen mammogram for malignant neoplasm of breast R94.5 Abnormal results of liver function studies F10.20 Alcohol dependence, uncomplicated M54.5 Low back pain R22.1 Localized swelling, mass and lump, neck Office Visit 02/12/2017 9:20a [facility] Sergio Drew, F10.20 Alcohol dependence, Medicine [employer] uncomplicated I10 Essential (primary) hypertension M79.675 Pain in left toe(s) D48.5 Neoplasm of uncertain behavior of skin Office Visit 12/02/2016 11:40a [facility] Sergio Drew, I10 Essential ( primary) Medicine [employer]ENDENT hypertension F10.20 Alcohol dependence, uncomplicated D48.5 Neoplasm of uncertain behavior of skin Office Visit 10/01/2016 9:40a [facility] Sergio Drew, R50.9 Fever, unspecified Medicine G[employer] SUPERINTENDENT Office Visit 09/27/2016 9:40a [facility] Sergio Drew, Z01.818 Encounter for other Medicine [employer]PERINTENDENT preprocedural examination H26.9 Unspecified cataract I10 Essential (primary) hypertension E87.1 Hypo-osmolality and hyponatremia E83.42 Hypomagnesemia F10.20 Alcohol dependence, uncomplicated Office Visit 07/17/2016 9:20a [facility] Sergio Drew, I10 Essential ( primary) Medicine [employer]ENDENT hypertension F10.20 Alcohol dependence, uncomplicated E87.1 Hypo-osmolality and hyponatremia L65.8 Other specified nonscarring hair loss F41.9 Anxiety disorder, unspecified Office Visit 06/26/2016 9:20a [facility] Sergio Drew, I10 Essential ( primary) Medicine [employer]ENT hypertension F10.20 Alcohol dependence, uncomplicated F41.9 Anxiety disorder, unspecified E83.42 Hypomagnesemia K21.9 Gastro-esophageal reflux disease without esophagitis Office Visit 05/08/2016 3:00p [facility] Essential ( primary[facility] Medicine GOL[employer]PERINTENDENT hypertension F10.20 Alcohol dependence, uncomplicated Office 10/15/2015 [facility], F10.230 Alcohol dependence Visit 9:35a jurgen Chapman M.D. with withdrawal, Hospitalists uncomplicated [facility] F10.230 Alcohol dependence Visit 9:34a jurgen Chapman II, M.D. with withdrawal, Hospitalists uncomplicated Plan of Treatment Future Appointment(s):01/05/2019 10:00 am - Germaine Sheppard M.D. at [facility] Llsybpae34/29/2019 - Germaine Sheppard M.D.K70.10 Alcoholic hepatitis without ascitesComments:See James best option is inpatient detox - start with an appointment at [facility] or [facility] will call you with test resultsFollow up: RASHIDA Palacios. See me in 1 weekR19.7 Diarrhea, unspecified
== END 2018-12-29 08:48 | disposition home or self-care (01) ==
LOC: ED 08:07
DX: E87.1 Hypo-osmolality and hyponatremia (principal); D64.9 Anemia, unspecified; I10 Essential (primary) hypertension; K21.9 Gastro-esophageal reflux disease without esophagitis; F41.9 Anxiety disorder, unspecified; F10.20 Alcohol dependence, uncomplicated; Z88.0 Allergy status to penicillin
CPT/HCPCS: 99282